=== PATIENT | male | born 1940 | race Caucasian/White ===

== ENCOUNTER 2020-08-18 19:48 | Inpatient (IN) | payer MEDICARE, BC ==
[~2020-08-18] VITALS: Ht 177.8 cm; Wt 73.5 kg
[~2020-08-18 19:48] MED LIST: ACETAMINOPHEN-1 EAC1 ORAL; ACETAMINOPHEN325 M1 ORAL; ALLOPURINOL100 M1 ORAL; AMLODIPINE BESYL5 MG ORAL; AURYXIA210 MG PO; BRIMONIDINE TART5 ML BOTH EYES; CAL-GEST200 MG PO; CALAMINE LOTIO177 ML TP; CLOPIDOGREL75 MG ORAL; COMBIGAN EYE DRO5 ML OP; COMPAZINE10 MG ORAL; COREG25 MG ORAL; CULTURELLE1 EAC1 PO; DOCUSATE SODIU100 M2 ORAL; DORZOLAMIDE 2%10 ML OP; ENTRESTO 97 MG1 EACH PO; EPOGEN20000 UNI1 SUBQ; HYDRALAZINE HCL25 M1 ORAL; HYDRALAZINE HCL25 M2 PO; HYDROXYZINE HCL25 M1 PO; IPRATROPIU0.2 MG/1 M HHN; IPRATROPIUM BRO15 ML NS; JANUVIA25 MG ORAL; JANUVIA50 MG ORAL; LEVETIRACETAM500 M1 ORAL; LEVETIRACETAM500 MG ORAL; LEVOCETIRIZINE D5 MG ORAL; LIPITOR80 MG ORAL; LORATADINE10 M1 PO; LORATADINE10 M2 PO; MELATONIN3 MG ORAL; MIRALAX17 G2 ORAL; MONTELUKAST SOD10 MG ORAL; MONTELUKAST SODI4 M1 ORAL; MYSOLINE50 M1 PO; NORCO 5-325 TA1 EAC1 ORAL; NORVASC5 MG ORAL; ONDANSETRON ODT8 MG ORAL; PANTOPRAZOLE SO20 MG ORAL; POLYETHYLENE GL17 GM ORAL; PRIMIDONE1 GM MC; RENA-VITE TABL0.8 M1 PO; RENVELA0.8 GM ORAL; RENVELA800 MG ORAL; TRAZODONE HCL100 MG ORAL; TRAZODONE HCL300 MG ORAL; TRAZODONE HCL50 MG ORAL; VOLTAREN100 G1 TP; ZOFRAN4 M1 ORAL; ZOFRAN4 M3 ORAL
[2020-08-18 20:00] VITALS: BP 176/84
[2020-08-18 20:43] LABS: CALCIUM 8.4 MG/DL (8.5-10.1); CREATININE 6.4 MG/DL (0.55-1.30); POTASSIUM 5.5 MMOL/L (3.5-5.1)
[2020-08-18 20:44] LABS: INR 1.1 (0.9-1.1)
[2020-08-18 20:45] LABS: BASOPHILS % (AUTO) 1.5 % (0.0-2.0); EOSINOPHILS % (AUTO) 5.2 % (0.0-3.0); HEMATOCRIT 27.1 % (42.0-52.0); HEMOGLOBIN 8.5 G/DL (14.2-18.0); LYMPHOCYTES % (AUTO) 36.9 % (20.0-45.0); MEAN CORPUSCULAR VOLUME 95 FL (80-99); MONOCYTES % (AUTO) 14.7 % (1.0-10.0); NEUTROPHILS % (AUTO) 41.7 % (45.0-75.0); PLATELET COUNT 167 K/UL (150-450); RED BLOOD COUNT 2.85 M/UL (4.70-6.10); RED CELL DISTRIBUTION WIDTH 15.5 % (11.6-14.8); WHITE BLOOD COUNT 5.7 K/UL (4.8-10.8)
[2020-08-18 20:48] LABS: ALBUMIN 1.8 G/DL (3.4-5.0); ALBUMIN/GLOBULIN RATIO 0.4 (1.0-2.7); BILIRUBIN,TOTAL 0.3 MG/DL (0.2-1.0)
[2020-08-18] MEDS ORDERED: Sodium Polystyrene Sulfonate 15gm Powder ORAL ONE (21:00)
[2020-08-18] MEDS ORDERED: Acetaminophen 650 MG SUPP RECTAL PRN (21:00)
--- NOTE | 2020-08-18 21:04 | Emergency Room Report ---
History of Present Illness General Chief Complaint: Abnormal Labs Source: Patient Present Illness HPI Patient is a 79-year-old male sent in from facility after increased generalized weakness. Prior history of anemia and renal disease. He normally gets intermittently dialysis. Has a left upper extremity dialysis access. States he only goes to dialysis a few times a month. Denies any recent bleeding. Has been noted to have a low hemoglobin at his facility. Prior history of chronic debilitation and lower extremity weakness. 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 COVID-19 Screening: Negative COVID-19 COVID-19 Testing Source: 08/05/2020 Patient History Past Medical History: see triage record Reviewed Nursing Documentation: PMH: Agreed; PSxH: Agreed Nursing Documentation-PMH Past Medical History: No History, Except For Hx Cardiac Problems: Yes - PLEURODYNIA, ANEMIA, ATHEROSCLEROTIC HEART DISEASE Hx Hypertension: Yes - HYPERLIPIDEMIA Hx Diabetes: Yes - ESRD, DIALYSIS, GLAUCOMA Hx Cancer: No Hx Gastrointestinal Problems: Yes - GOUT, GERD, DYSPHAGIA Hx Dialysis: Yes - av shunt on Lt arm History Of Psychiatric Problem: Yes - DEPRESSION Hx Neurological Problems: Yes Hx Cerebrovascular Accident: Yes Review of Systems All Other Systems: negative except mentioned in HPI Physical Exam Vital Signs Date Time Temp Pulse Resp B/P (MAP) Pulse Ox O2 Delivery O2 Flow Rate FiO2 08/18/20 19:40 97.3 69 18 176/84 (114) 95 Room Air Sp02 EP Interpretation: reviewed, normal General Appearance: normal inspection, alert, GCS 15, Chronically Ill Head: atraumatic ENT: normal ENT inspection, hearing grossly normal, normal voice Neck: normal inspection, full range of motion, supple, no bony tend Respiratory: normal inspection, lungs clear, normal breath sounds, no respiratory distress, no retraction, no wheezing Cardiovascular #1: regular rate, rhythm, no edema Gastrointestinal: normal inspection, normal bowel sounds, non tender, soft, no guarding, no hernia Genitourinary: no CVA tenderness Musculoskeletal: normal inspection Neurologic: alert, children's attendant III-XII nml as tested, oriented x3, motor weakness, responsive, speech normal, normal inspection, other - Bilateral lower extremity weakness Psychiatric: normal inspection, judgement/insight normal, mood/affect normal Skin: other - Decubitus ulcers Medical Decision Making Diagnostic Impression: Primary Impression: Chronic renal failure Additional Impressions: Weakness Hyperkalemia Anemia Infiltrate of lung present on chest x-ray ER Course Patient presented for generalized weakness and anemia. Differential diagnosis include was not limited to GI bleed, anemia chronic disease, renal failure, hyperkalemia among others. Because of complexity of patient's case laboratory tests and imaging studies were ordered. Patient was noted to have some prior hi story of chronic renal disease. Laboratory testing showed minimally elevated troponin. Patient was noted to have hyperkalemia on laboratory testing with K greater than 5. EKG showed normal sinus rhythm with a rate of 67 with QTC prolongation 488. Patient was consented for blood. Laboratory testing showed adequate hemoglobin. Chest x-ray read by radiology showed right mid and basilar airspace opacities which may represent pneumonia in the appropriate clinical setting. Antibiotics and blood cultures were ordered after chest x-ray showed right midlung basilar opacities possible pneumonia Mediastinal surgical clips. given Kayexalate. Dr. Salvatore Borrero was contacted for inpatient management. Labs Test 08/18/20 20:00 White Blood Count 5.7 K/UL (4.8-10.8) Red Blood Count 2.85 M/UL (4.70-6.10) Hemoglobin 8.5 G/DL (14.2-18.0) Hematocrit 27.1 % (42.0-52.0) Mean Corpuscular Volume 95 FL (80-99) Mean Corpuscular Hemoglobin 29.8 PG (27.0-31.0) Mean Corpuscular Hemoglobin Concent 31.2 G/DL (32.0-36.0) Red Cell Distribution Width 15.5 % (11.6-14.8) Platelet Count 167 K/UL (150-450) Mean Platelet Volume 6.5 FL (6.5-10.1) Neutrophils (%) (Auto) 41.7 % (45.0-75.0) Lymphocytes (%) (Auto) 36.9 % (20.0-45.0) Monocytes (%) (Auto) 14.7 % (1.0-10.0) Eosinophils (%) (Auto) 5.2 % (0.0-3.0) Basophils (%) (Auto) 1.5 % (0.0-2.0) Prothrombin Time 12.5 SEC (9.30-11.50) Prothromb Time International Ratio 1.1 (0.9-1.1) Activated Partial Thromboplast Time 35 SEC (23-33) Sodium Level 134 MMOL/L (136-145) Potassium Level 5.5 MMOL/L (3.5-5.1) Chloride Level 100 MMOL/L (98-107) Carbon Dioxide Level 28 MMOL/L (21-32) Anion Gap 6 mmol/L (5-15) Blood Urea Nitrogen 48 mg/dL (7-18) Creatinine 6.4 MG/DL (0.55-1.30) Estimat Glomerular Filtration Rate 8.5 mL/min (>60) Glucose Level 121 MG/DL (74-106) Calcium Level 8.4 MG/DL (8.5-10.1) Total Bilirubin 0.3 MG/DL (0.2-1.0) Aspartate Amino Transf (AST/SGOT) 44 U/L (15-37) Alanine Aminotransferase (ALT/SGPT) 19 U/L (12-78) Alkaline Phosphatase 105 U/L (46-116) Troponin I 0.181 ng/mL (0.000-0.056) Total Protein 6.5 G/DL (6.4-8.2) Albumin 1.8 G/DL (3.4-5.0) Globulin 4.7 g/dL Albumin/Globulin Ratio 0.4 (1.0-2.7) EKG Diagnostic Results Rate: normal Rhythm: NSR ST Segments: no acute changes Last Vital Signs Date Time Temp Pulse Resp B/P (MAP) Pulse Ox O2 Delivery O2 Flow Rate FiO2 08/18/20 20:00 97.3 69 18 176/84 95 Room Air Status: improved Disposition: ADMITTED INPATIENT Condition: Stable Referrals: Salvatore Borrero DO (PCP) Kevin Currie MD Aug 18, 2020 21:04
--- NOTE | 2020-08-18 21:15 | Diagnostic Imaging Report ---
EXAM: XR Chest, 1 View CLINICAL HISTORY: ABN LABS TECHNIQUE: Frontal view of the chest. COMPARISON: CT chest dated 06/04/2020. FINDINGS: Lungs: Prominent interstitial lung markings are demonstrated bilaterally. Right mid and basilar airspace opacities are demonstrated. A few scattered pulmonary nodules, better visualized on prior CT. Pleural space: Mild obscuration of the right costophrenic angle. No pneumothorax. Heart: Unremarkable. No cardiomegaly. Mediastinum: Mediastinal surgical clips. Bones/joints: Prior median sternotomy. No obvious acute osseous abnormality. Vasculature: Atherosclerotic vascular disease within the aortic arch. IMPRESSION: 1. Right mid and basilar airspace opacities. May represent pneumonia in the appropriate clinical setting. 2. Obscuration of the right costophrenic angle suggesting small pleural effusion and/or atelectasis.
[2020-08-18] MEDS ORDERED: cefTRIAXone 1 GM in NS 55 ML IVPB ONE (21:30)
[2020-08-18] MEDS ORDERED: Tylenol #3 tab (300mg/30mg) ORAL ONE (21:45)
[2020-08-18 22:30] VITALS: BP 162/68
[2020-08-19] VITALS: BP 179/75
[2020-08-19 04:00] VITALS: BP 152/85
[2020-08-19 08:00] VITALS: BP 164/71
[2020-08-19] MEDS ORDERED: Heparin 5000 units/ml inj SUBQ SCH (09:00)
[2020-08-19] MEDS: Carvedilol 25mg Tab ORAL SCH ×2 (09:15→21:00)
[2020-08-19] MEDS: Docusate 100mg cap ORAL SCH (09:16)
[2020-08-19 10:36] LABS: CREATININE 6.8 MG/DL (0.55-1.30)
--- NOTE | 2020-08-19 10:40 | General Progress Note ---
Subjective Date patient seen: Aug 19, 2020 Time patient seen: 10:30 Constitutional: Reports: weakness HEENT: Reports: no symptoms Cardiovascular: Reports: no symptoms Respiratory: Reports: no symptoms Gastrointestinal/Abdominal: Reports: no symptoms Genitourinary: Reports: no symptoms Neurologic/Psychiatric: Reports: weakness Endocrine: Reports: no symptoms Hematologic/Lymphatic: Reports: anemia Allergies: Coded Allergies: No Known Allergies (Unverified , 06/09/15) Subjective Patient was seen and examined. He was admitted for hyperkalemia and anemia. he states he had upper and lower endoscopy done at [facility] recently. He has low grade temp. No sob or chest pain. Objective Last 24 Hour Vital Signs Date Time Temp Pulse Resp B/P (MAP) Pulse Ox O2 Delivery O2 Flow Rate FiO2 08/19/20 09:15 65 164/71 08/19/20 08:00 97.5 65 20 164/71 (102) 95 08/19/20 04:00 98.9 72 20 152/85 (107) 96 08/19/20 04:00 68 08/19/20 00:00 99.6 63 20 179/75 (109) 96 08/19/20 00:00 68 08/18/20 23:46 Room Air 08/18/20 23:46 69 08/18/20 22:45 97.3 71 14 162/68 96 Room Air 08/18/20 22:30 97.3 71 14 162/68 96 Room Air 08/18/20 22:25 97.3 08/18/20 20:00 97.3 69 18 176/84 95 Room Air 08/18/20 19:40 97.3 69 18 176/84 (114) 95 Room Air Laboratory Tests 08/18/20 20:00: White Blood Count 5.7, Red Blood Count 2.85L, Hemoglobin 8.5L, Hematocrit 27.1L, Mean Corpuscular Volume 95, Mean Corpuscular Hemoglobin 29.8, Mean Corpuscular Hemoglobin Concent 31.2L, Red Cell Distribution Width 15.5H, Platelet Count 167, Mean Platelet Volume 6.5, Neutrophils (%) (Auto) 41.7L, Lymphocytes (%) (Auto) 36.9, Monocytes (%) (Auto) 14.7H, Eosinophils (%) (Auto) 5.2H, Basophils (%) (Auto) 1.5, Prothrombin Time 12.5H, Prothromb Time International Ratio 1.1, Activated Partial Thromboplast Time 35H, Sodium Level 134L, Potassium Level 5.5H , Chloride Level 100, Carbon Dioxide Level 28, Anion Gap 6, Blood Urea Nitrogen 48H, Creatinine 6.4H, Estimat Glomerular Filtration Rate 8.5, Glucose Level 121H , Calcium Level 8.4L, Total Bilirubin 0.3, Aspartate Amino Transf (AST/SGOT) 44H , Alanine Aminotransferase (ALT/SGPT) 19, Alkaline Phosphatase 105, Troponin I 0.181H, Total Protein 6.5, Albumin 1.8L, Globulin 4.7, Albumin/Globulin Ratio 0.4L 08/18/20 20:15: Lactic Acid Level 1.00 08/19/20 09:25: White Blood Count [Pending], Red Blood Count [Pending], Hemoglobin [Pending], Hematocrit [Pending], Mean Corpuscular Volume [Pending], Mean Corpuscular H emoglobin [Pending], Mean Corpuscular Hemoglobin Concent [Pending], Red Cell Distribution Width [Pending], Platelet Count [Pending], Mean Platelet Volume [Pending], Neutrophils (%) (Auto) [Pending], Lymphocytes (%) (Auto) [Pending], Monocytes (%) (Auto) [Pending], Eosinophils (%) (Auto) [Pending], Basophils (%) (Auto) [Pending], Sodium Level [Pending], Potassium Level [Pending], Chloride Level [Pending], Carbon Dioxide Level [Pending], Blood Urea Nitrogen [Pending], Creatinine [Pending], Estimat Glomerular Filtration Rate [Pending], Glucose Level [Pending], Calcium Level [Pending], Troponin I [Pending] Height (Feet): 5 Height (Inches): 10.00 Weight (Pounds): 166 General Appearance: no apparent distress, alert EENT: normal ENT inspection Neck: non-tender, supple Cardiovascular: normal rate, regular rhythm Respiratory/Chest: lungs clear Abdomen: non tender, soft Extremities: non-tender Edema: trace edema Neurologic: alert, responsive Skin: warm/dry Assessment/Plan Status: stable Assessment/Plan: 1. Hyperkalemia - received Kayexalate in ER. 2. ESRD on HD - Renal was consulted for Dialysis. 3. Anemia - most likely 2nd to Anemia of chronic disease due to ESRD - he had colonoscopy at [facility] per patient. 4. H/o Lower GI bleeding s/p Colonoscopy per patient at [facility]. 5. HTN - cont coreg 25 mg bid and start norvasc 2.5 mg daily. 6. 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 7. h/o lower GI bleed at [facility] per patient - will have GI see the patient. 8. Elevated Troponin - most likely 2nd to ERSD. Cardiology eval. Isela Jordan MD Aug 19, 2020 10:40
[2020-08-19 10:59] LABS: HEMATOCRIT 25.6 % (42.0-52.0); HEMOGLOBIN 7.8 G/DL (14.2-18.0); MEAN CORPUSCULAR VOLUME 94 FL (80-99); PLATELET COUNT 171 K/UL (150-450); RED BLOOD COUNT 2.72 M/UL (4.70-6.10); WHITE BLOOD COUNT 5.1 K/UL (4.8-10.8)
--- NOTE | 2020-08-19 11:12 | Consultation ---
History of Present Illness General Date patient seen: Aug 19, 2020 Time patient seen: 08:30 Chief Complaint: infiltarte on CXR ; possible PNA Referring physician: Dr Borrero Reason for Consultation: poss PNA Present Illness HPI 79 years old male, resident of assisted living, with PMH of CVA, ESRD, on hemodialysis, HTN, DM, anemia, GERD, history of CVA, atherosclerotic heart disease, hyperlipidemia, seizure disorder, recent GI bleeding, s/p colonoscopy at [facility], was sent for increased generalized weakness. Facility noted low hemoglobin. Upon evaluation blood pressure was elevated 176/84 . Laboratory work-up revealed no leukocytosis ,hemoglobin 8.5 ,hematocrit 27.1, platelet count 167. Sodium 134 , potassium 5.5. BUN 40, creatinine 6.4 c/w known hx of ESRD. Glucose 121. CXR demonstrated right mid and basilar airspace opacities. Obscuration of the right costophrenic angle suggesting small pleural effusion and/or atelectasis. In emergency department patient received Kayexalate. Septic work-up initiated. Patient pancultured, started on empiric antibiotic and admitted to telemetry floor for further management. Pulmonary consult was requested to assist in management of this patient for possible PNA Allergies: Coded Allergies: No Known Allergies (Unverified , 06/09/15) Medication History Scheduled Atorvastatin (Lipitor), 80 MG ORAL BEDTIME, (Reported) Carvedilol (Coreg), 25 MG ORAL TWICE A DAY, (Reported) Clopidogrel* (Clopidogrel*), 75 MG ORAL DAILY, (Reported) Docusate Sodium (Docusate Sodium), 100 MG ORAL DAILY, (Reported) Levetiracetam* (Levetiracetam*), 500 MG ORAL TWICE A DAY, (Reported) Loratadine (Claritin*), 10 MG PO DAILY, (Reported) Montelukast Sodium* (Montelukast Sodium*), 10 MG ORAL DAILY, (Reported) Pantoprazole (Pantoprazole), 40 MG ORAL TWICE A DAY, (Reported) Primidone (Mysoline), 50 MG PO BEDTIME, (Reported) Sitagliptin* (Januvia*), 25 MG ORAL DAILY, (Reported) Scheduled PRN Acetaminophen* (Acetaminophen 325MG Tablet*), 325 MG ORAL Q4H PRN for For Pain, (Reported) Ondansetron* (Zofran*), 4 MG ORAL Q6H PRN for Nausea & Vomiting, (Reported) Discontinued Medications Amlodipine Besylate (Norvasc), 5 MG ORAL Q12HR Discontinued Reason: MD discontinued med Folic Acid/Vitamin B Comp W-C (Jen-Sandeep Tablet), 1 TAB PO DAILY, (Reported) Discontinued Reason: MD discontinued med Hydralazine HCl (Hydralazine HCl), 25 MG PO Q8HR, (Reported) Discontinued Reason: MD discontinued med Hydrocodone Bit/Acetaminophen 5-325* ([place] 5-325 Tablet*), 1 TAB ORAL Q4H PRN for For Pain, (Reported) Discontinued Reason: MD discontinued med Sevelamer Carbonate* (Renvela*), 800 MG ORAL THREE TIMES A DAY, (Reported) Discontinued Reason: MD discontinued med Trazodone Hcl* (Desyrel*), 150 MG ORAL BEDTIME, (Reported) Discontinued Reason: MD discontinued med Patient History History Provided By: Patient Healthcare decision maker Resuscitation status Full code Advanced Directive on File Past Medical/Surgical History Past Medical/Surgical History: (1) CVA (cerebral vascular accident) (2) ESRD (end stage renal disease) (3) Anemia Review of Systems Constitutional: Reports: weakness Eye: Reports: no symptoms ENT: Reports: no symptoms Respiratory: Reports: shortness of breath Gastrointestinal: Reports: other - recent GI bleeding, s/p colonoscopy at [facility] Genitourinary: Reports: other - ESRD, on HD Musculoskeletal: Reports: muscle stiffness Skin: Reports: no symptoms Psychiatric: Reports: depressed feelings Neurological: Reports: seizure, other - hx of CVA Endocrine: Reports: other - DB Hematologic/Lymphatic: Reports: anemia Physical Exam General Appearance: no apparent distress, other - bedridden, weak, awake and alert male in NAD Lines, tubes and drains: peripheral HEENT: normocephalic, atraumatic, anicteric, mucous membranes moist Neck: non-tender, supple Respiratory/Chest: lungs clear - with decreased BS , no accessory muscle use Cardiovascular/Chest: normal rate, regular rhythm - SR on tele Abdomen: normal bowel sounds, non tender, soft Extremities: normal capillary refill, no edema, other - LUE AV shunt + bruit/thrill Skin Exam: warm/dry Neurologic: abnormal gait, alert, responsive Musculoskeletal: atrophy - BLE Last 24 Hour Vital Signs Date Time Temp Pulse Resp B/P (MAP) Pulse Ox O2 Delivery O2 Flow Rate FiO2 08/19/20 09:15 65 164/71 08/19/20 08:00 97.5 65 20 164/71 (102) 95 08/19/20 04:00 98.9 72 20 152/85 (107) 96 08/19/20 04:00 68 08/19/20 00:00 99.6 63 20 179/75 (109) 96 08/19/20 00:00 68 08/18/20 23:46 Room Air 08/18/20 23:46 69 08/18/20 22:45 97.3 71 14 162/68 96 Room Air 08/18/20 22:30 97.3 71 14 162/68 96 Room Air 08/18/20 22:25 97.3 08/18/20 20:00 97.3 69 18 176/84 95 Room Air 08/18/20 19:40 97.3 69 18 176/84 (114) 95 Room Air Laboratory Tests Test 08/18/20 20:00 08/18/20 20:15 08/19/20 09:25 White Blood Count 5.7 K/UL (4.8-10.8) Pending Red Blood Count 2.85 M/UL (4.70-6.10) L Pending Hemoglobin 8.5 G/DL (14.2-18.0) L Pending Hematocrit 27.1 % (42.0-52.0) L Pending Mean Corpuscular Volume 95 FL (80-99) Pending Mean Corpuscular Hemoglobin 29.8 PG (27.0-31.0) Pending Mean Corpuscular Hemoglobin Concent 31.2 G/DL (32.0-36.0) L Pending Red Cell Distribution Width 15.5 % (11.6-14.8) H Pending Platelet Count 167 K/UL (150-450) Pending Mean Platelet Volume 6.5 FL (6.5-10.1) Pending Neutrophils (%) (Auto) 41.7 % (45.0-75.0) L Pending Lymphocytes (%) (Auto) 36.9 % (20.0-45.0) Pending Monocytes (%) (Auto) 14.7 % (1.0-10.0) H Pending Eosinophils (%) (Auto) 5.2 % (0.0-3.0) H Pending Basophils (%) (Auto) 1.5 % (0.0-2.0) Pending Prothrombin Time 12.5 SEC (9.30-11.50) H Prothromb Time International Ratio 1.1 (0.9-1.1) Activated Partial Thromboplast Time 35 SEC (23-33) H Sodium Level 134 MMOL/L (136-145) L 135 MMOL/L (136-145) L Potassium Level 5.5 MMOL/L (3.5-5.1) H 5.0 MMOL/L (3.5-5.1) Chloride Level 100 MMOL/L (98-107) 101 MMOL/L (98-107) Carbon Dioxide Level 28 MMOL/L (21-32) 27 MMOL/L (21-32) Anion Gap 6 mmol/L (5-15) 7 mmol/L (5-15) Blood Urea Nitrogen 48 mg/dL (7-18) H 55 mg/dL (7-18) H Creatinine 6.4 MG/DL (0.55-1.30) H 6.8 MG/DL (0.55-1.30) H Estimat Glomerular Filtration Rate 8.5 mL/min (>60) 7.9 mL/min (>60) Glucose Level 121 MG/DL (74-106) H 116 MG/DL (74-106) H Calcium Level 8.4 MG/DL (8.5-10.1) L 8.0 MG/DL (8.5-10.1) L Total Bilirubin 0.3 MG/DL (0.2-1.0) Aspartate Amino Transf (AST/SGOT) 44 U/L (15-37) H Alanine Aminotransferase (ALT/SGPT) 19 U/L (12-78) Alkaline Phosphatase 105 U/L (46-116) Troponin I 0.181 ng/mL (0.000-0.056) 0.164 ng/mL (0.000-0.056) Total Protein 6.5 G/DL (6.4-8.2) Albumin 1.8 G/DL (3.4-5.0) L Globulin 4.7 g/dL Albumin/Globulin Ratio 0.4 (1.0-2.7) L Lactic Acid Level 1.00 mmol/L (0.4-2.0) Microbiology Date/Time Source Procedure Growth Status 08/18/20 20:00 Nasopharynx SARS-CoV-2 RdRp Gene Assay - Final Complete Height (Feet): 5 Height (Inches): 10.00 Weight (Pounds): 166 Medications Current Medications Medications (Trade) Dose Ordered Sig/Harriet Route PRN Reason Start Time Stop Time Status Last Admin Dose Admin Acetaminophen (Tylenol) 650 mg PRN PRN RECTAL TEMP>100.5 08/18/20 21:00 Acetaminophen (Tylenol) 650 mg Q6H PRN ORAL For Headache 08/19/20 01:30 09/18/20 01:29 08/19/20 03:22 Atorvastatin Calcium (Lipitor) 80 mg BEDTIME ORAL 08/19/20 21:00 11/17/20 20:59 Carvedilol (Coreg) 25 mg EVERY 12 HOURS ORAL 08/19/20 09:00 09/18/20 08:59 08/19/20 09:15 Clopidogrel Bisulfate (Plavix) 75 mg DAILY ORAL 08/19/20 09:00 09/18/20 08:59 08/19/20 09:15 Docusate Sodium (Colace) 100 mg DAILY ORAL 08/19/20 09:00 09/18/20 08:59 08/19/20 09:16 Epoetin Bill (Epoetin Bill(ESRD on dialysis)) 10,000 unit FRI-FRI-FRI SUBQ 08/21/20 21:00 11/19/20 20:59 Levetiracetam (Keppra) 500 mg Q12HR ORAL 08/19/20 09:00 10/03/20 08:59 08/19/20 09:15 Loratadine (Claritin 10mg) 10 mg DAILY ORAL 08/19/20 09:00 09/18/20 08:59 08/19/20 09:15 Montelukast Sodium (Singulair) 10 mg QPM ORAL 08/19/20 16:30 11/17/20 16:29 Ondansetron HCl (Zofran) 4 mg Q6H PRN IVP Nausea & Vomiting 08/19/20 10:00 09/18/20 09:59 Pantoprazole (Protonix) 40 mg EVERY 12 HOURS ORAL 08/19/20 09:00 09/18/20 08:59 08/19/20 09:15 Primidone (Mysoline) 50 mg BEDTIME ORAL 08/19/20 21:00 09/18/20 20:59 Sitagliptin Phosphate (Januvia) 25 mg ACBREAKFAST ORAL 08/20/20 06:30 09/19/20 06:29 Assessment/Plan Assessment/Plan: ASSESSMENT Generalized weakness Possible pneumonia Anemia Elevated troponin Hyperkalemia Hypertension with initial hypertensive urgency ESRD on hemodialysis Diabetes mellitus Recent low GI bleeding , status post colonoscopy at [facility] tele empiric abx O2 prn titrate to keep sat above 92% pulm toilet fup with CXR SCX if able COVID 19 NGT DVT prophylaxis serial troponin cardio eval- per primary no c/o chest pain or SOB tele stable continue Plavix, statin HD as per nephro with close monitoring of volumes BS management with Januvia monitor HH with goal to keep Hgb > 7 continue EPO GI prophylaxis seizure precautions, continue Keppra case discussed and evaluated by supervising physician Ibis Berg NP Aug 19, 2020 11:12
[2020-08-19] MEDS ORDERED: Albuterol/Ipratropium 3ml neb HHN PRN (11:15)
[2020-08-19 11:42] LABS: % IRON SATURATION 36 % (15-50); IRON 46 ug/dL (50-175); PHOSPHORUS 4.1 MG/DL (2.5-4.9); TOTAL IRON BINDING CAPACITY 127 ug/dL (250-450)
[2020-08-19 12:00] VITALS: BP 163/64
[2020-08-19] MEDS ORDERED: Varibar Nectar 240ml MC PRN (12:45)
[2020-08-19] MEDS ORDERED: Varibar Thin Liquid powder 148gm MC PRN (12:45)
[2020-08-19] MEDS ORDERED: Varibar Honey 250ml MC PRN (12:45)
[2020-08-19] MEDS ORDERED: Varibar Pudding 230ml MC PRN (12:45)
--- NOTE | 2020-08-19 15:36 | General Progress Note ---
Subjective Allergies: Coded Allergies: No Known Allergies (Unverified , 06/09/15) Objective Last 24 Hour Vital Signs Date Time Temp Pulse Resp B/P (MAP) Pulse Ox O2 Delivery O2 Flow Rate FiO2 08/19/20 12:28 97.5 08/19/20 12:00 97.7 57 20 163/64 (97) 98 08/19/20 12:00 54 08/19/20 11:15 65 164/71 08/19/20 09:15 65 164/71 08/19/20 09:00 Room Air 08/19/20 08:00 97.5 65 20 164/71 (102) 95 08/19/20 08:00 62 08/19/20 04:00 98.9 72 20 152/85 (107) 96 08/19/20 04:00 68 08/19/20 00:00 99.6 63 20 179/75 (109) 96 08/19/20 00:00 68 08/18/20 23:46 Room Air 08/18/20 23:46 69 08/18/20 22:45 97.3 71 14 162/68 96 Room Air 08/18/20 22:30 97.3 71 14 162/68 96 Room Air 08/18/20 22:25 97.3 08/18/20 20:00 97.3 69 18 176/84 95 Room Air 08/18/20 19:40 97.3 69 18 176/84 (114) 95 Room Air Laboratory Tests 08/18/20 20:00: White Blood Count 5.7, Red Blood Count 2.85L, Hemoglobin 8.5L, Hematocrit 27.1L, Mean Corpuscular Volume 95, Mean Corpuscular Hemoglobin 29.8, Mean Corpuscular Hemoglobin Concent 31.2L, Red Cell Distribution Width 15.5H, Platelet Count 167, Mean Platelet Volume 6.5, Neutrophils (%) (Auto) 41.7L, Lymphocytes (%) (Auto) 36.9, Monocytes (%) (Auto) 14.7H, Eosinophils (%) (Auto) 5.2H, Basophils (%) (Auto) 1.5, Prothrombin Time 12.5H, Prothromb Time International Ratio 1.1, Activated Partial Thromboplast Time 35H, Sodium Level 134L, Potassium Level 5.5H , Chloride Level 100, Carbon Dioxide Level 28, Anion Gap 6, Blood Urea Nitrogen 48H, Creatinine 6.4H, Estimat Glomerular Filtration Rate 8.5, Glucose Level 121H , Calcium Level 8.4L, Total Bilirubin 0.3, Aspartate Amino Transf (AST/SGOT) 44H , Alanine Aminotransferase (ALT/SGPT) 19, Alkaline Phosphatase 105, Troponin I 0.181H, Total Protein 6.5, Albumin 1.8L, Globulin 4.7, Albumin/Globulin Ratio 0.4L 08/18/20 20:15: Lactic Acid Level 1.00 08/19/20 09:25: White Blood Count 5.1, Red Blood Count 2.72L, Hemoglobin 7.8L, Hematocrit 25.6L, Mean Corpuscular Volume 94, Mean Corpuscular Hemoglobin 28.6, Mean Corpuscular Hemoglobin Concent 30.4L, Red Cell Distribution Width 15.0H, Platelet Count 171, Mean Platelet Volume 6.4L, Neutrophils (%) (Auto) , Lymphocytes (%) (Auto) , Monocytes (%) (Auto) , Eosinophils (%) (Auto) , Basophils (%) (Auto) , Sodium Level 135L, Potassium Level 5.0, Chloride Level 101, Carbon Dioxide Level 27, Anion Gap 7, Blood Urea Nitrogen 55H, Creatinine 6.8H, Estimat Glomerular Filtration Rate 7.9, Glucose Level 116H, Calcium Level 8.0L, Troponin I 0.164H, Differential Total Cells Counted 100, Neutrophils % (Manual) 46, Lymphocytes % (Manual) 37, Monocytes % (Manual) 12H, Eosinophils % (Manual) 4H, Basophils % (Manual) 1, Band Neutrophils 0, Platelet Estimate Adequate, Platelet Morphology Normal, Polychromasia 1+, Hypochromasia 1+, Anisocytosis 1+, Calcium (Send out) [Pending], Phosphorus Level 4.1, Iron Level 46L, Total Iron Binding Capacity 127L, Percent Iron Saturation 36, Unsaturated Iron Binding 81L, Parathyroid Hormone (Intact) [Pending] Height (Feet): 5 Height (Inches): 10.00 Weight (Pounds): 166 Assessment/Plan Status: stable Assessment/Plan: Assessment Chronic Nausea, W/u to date: 12/04/16 - EGD - DU x 4 HH x 3 cm path (-) for HP 06/04/19 - abd u/s - small gallbladder sludge 06/05/19 - HIDA Scan-- normal, no CCK given 10/09/19 - abd/pelvis CT - possible PSBO , ventral hernia and tics 10/15/19 - upper GI with SBFT - small HH, non-obstructing Schatzki's ring, mildly distended small bowel loops 12/02/19 - gastric emptying study normal 05/22/20 - HIDA SCAN with CCK mildly abnormal (EF 32%, normal >35%) 07/24/20 - Colonoscopy --> diminutive polyps and diverticulosis ESRD/HD DM h/o anemia h/o syncope CAD/MN PTCA/Stent 04/2015 HTN Hypercholesterolemia AAA GERD Gout h/o PUD/DU h/o a fib Recommendations - po as tolerated - monitor CBC - Surgical consult for possible lap ela (? source of nausea) Thank you MD Kellie Ewing Payman MD Aug 19, 2020 15:36
[2020-08-19 16:00] VITALS: BP 168/74
--- NOTE | 2020-08-19 16:00 | History and Physical Report ---
DATE OF ADMISSION: 08/18/2020 DATE AND TIME SEEN: 08/19/2020 at 9 a.m. CONSULTANTS: 1. Robbie Lee M.D. 2. Derek Shah M.D. 3. Dr. New. 4. Poli Solano M.D. 5. Daniel Irving M.D. CHIEF COMPLAINT: Anemia and shortness of breath. BRIEF HISTORY: This is a 79-year-old male from . Yesterday he was found to have hemoglobin drop down to 7.2, was slightly short of breath and weak, and sent to [facility], diagnosed with above. The patient's repeat hemoglobin was 8.5, but still slightly short of breath, therefore, was admitted to [facility]. Currently calm in bed, slightly short of breath, slightly weak. No complaint. REVIEW OF SYSTEMS: No chest pain. Slightly short of breath. No nausea, vomiting, or diarrhea. PAST MEDICAL HISTORY: Anemia, ESRD, hypertension, depression, GERD, and asthma. Also had CVA. PAST SURGICAL HISTORY: Heart surgery. ALLERGIES: Denies. MEDICATIONS: Januvia, Mysoline, Lipitor, Singulair, Zofran, heparin, pantoprazole, loratadine, , carvedilol, Tylenol, and ceftriaxone. SOCIAL HISTORY: Positive smoking. No alcohol. No intravenous drug abuse. FAMILY HISTORY: Noncontributory. PHYSICAL EXAMINATION: GENERAL: Calm in bed, oriented x1, in no acute distress. VITAL SIGNS: Temperature 97, pulse 65, respirations 20, blood pressure 164/71. CARDIOVASCULAR: No murmur. LUNGS: Poor air exchange. ABDOMEN: Bowel sounds distant. EXTREMITIES: No cyanosis or edema. NEUROLOGIC: The patient moves all extremities, slightly weak. LABORATORY AND DIAGNOSTIC DATA: Labs at this time show H and H 8.5 and 27, otherwise CBC is normal. BMP shows sodium of 134, potassium 5.5, BUN and creatinine 48 and 6.4. Glucose 121. Troponin 0.181. Albumin 1.8. AST 44. INR is 1.1. PTT is 35. ASSESSMENT: 1. Anemia. 2. Shortness of breath. 3. Elevated troponin. 4. ESRD. 5. Hyperkalemia. 6. Hypertension. 7. Depression. 8. GERD. 9. Malnutrition. 10. Asthma. 11. CVA. PLAN: 1. O2 and pulmonary treatment as needed. 2. Antibiotics per Infectious Disease. 3. Blood pressure and pain control. 4. Dietary followup. 5. Dialysis p.r.n. 6. Resume home meds. 7. CBC and BMP in the morning. Salvatore Borrero D.O. DR: JERICHO JOB#: [id number] CC:
--- NOTE | 2020-08-19 16:15 | Consultation ---
DATE OF CONSULTATION: 08/19/2020 NEPHROLOGY CONSULTATION CONSULTING PHYSICIAN: Ary Locke M.D. REFERRING PHYSICIAN: Salvatore Borrero D.O. REASON FOR CONSULTATION: End-stage renal disease, need for dialysis. HISTORY OF PRESENT ILLNESS: The patient is a 79-year-old male, known to me with recent admission at [facility] with history of end-stage renal disease, anemia of chronic kidney disease, renal osteodystrophy, hypertension, dyslipidemia, and depression, who was just recently discharged from [facility] [place]. The last dialysis was last Friday. He was sent to a [facility]. Apparently, the patient complained of back pain and some shortness of breath, was brought into [facility]. In the ER, the patient was found to have blood pressure of 176/87, pulse was 79, potassium found to be 5.3. The patient was found to be mildly overloaded, was admitted in the telemetry unit. I was called for management of renal disease and electrolyte imbalance. PAST MEDICAL HISTORY: Includin. End-stage renal disease. 2. Anemia of chronic kidney disease. 3. Renal osteodystrophy. 4. Hypertension. 5. Glaucoma. 6. Dysphagia. 7. History of gout. 8. History of depression. 9. History of AV fistula placement. 10. History of CVA. FAMILY HISTORY: Noncontributory. SOCIAL HISTORY: He lives at [facility]. There is no current history of tobacco, alcohol, or drug use. MEDICATIONS: List was reviewed. REVIEW OF SYSTEMS: GENERAL: He is complaining of generalized weakness. Denies any fever, chills, or night sweats. HEAD AND NECK: Denies any dysphagia, odynophagia, blurry vision, headache, or neck stiffness. PULMONARY: Denies any shortness of breath or cough or sputum. CARDIOVASCULAR: Denies any chest pain or palpitations. GASTROINTESTINAL: Denies any nausea, vomiting, diarrhea, hematemesis, or hematochezia. GENITOURINARY: Denies any dysuria, frequency, or hematuria. MUSCULOSKELETAL: Denies any localized weakness or numbness. PHYSICAL EXAMINATION: VITAL SIGNS: Currently, the patient has a temperature of 97, blood pressure of 164/75, pulse rate of 65. HEAD AND NECK: No JVP. No LAD. No thyromegaly. Extraocular movements intact. Pupils are reactive to light and accommodation. LUNGS: Clear to auscultation. CARDIAC: Regular rate and rhythm. S1 and S2. No murmur. No rubs ABDOMEN: Soft, nontender, and nondistended. EXTREMITIES: No edema. No clubbing. No cyanosis. LABORATORY AND DIAGNOSTIC DATA: Lab value, the patient has sodium of 134, potassium 5.5, 100 chloride, 28 bicarb, BUN of 28, creatinine of 6.4. AST and ALT within normal limits. CBC revealed WBC count of 5.7, hemoglobin of 8.5, hematocrit of 27, platelet count of 164. ASSESSMENT: 1. End-stage renal disease. 2. Anemia of chronic kidney disease. 3. Renal osteodystrophy. 4. Hypertension. PLAN: The plan for the patient is to restart antihypertensive medications. Check the calcium and phosphorus for evaluation of renal osteodystrophy. Start the patient back on Epogen for anemia of chronic kidney disease. Check the iron panel for history of low-potassium and renal diet. Schedule the patient to receive dialysis today. At the end, I would like to thank Dr. Salvatore Borrero for allowing me to participate in the care of this patient. Sofia Mari JOB#: [id number] CC:
[2020-08-19] MEDS: Montelukast 10mg tablet ORAL SCH (16:30)
--- NOTE | 2020-08-19 16:30 | History and Physical Report ---
DATE OF ADMISSION: 08/18/2020 CHIEF COMPLAINT: Anemia and weakness. HISTORY OF PRESENT ILLNESS: This is a 79-year-old male with a history of hypertension, end-stage renal disease, insomnia, hyperlipidemia, gout, essential tremor, seizure disorder, and anemia, who was brought in from a shelter for complaint of weakness and anemia. The patient states that he had lower GI bleed a few days before the admission and his hemoglobin came down and it was decided at the rehab to send the patient to hospital for evaluation. The patient has a history of colonoscopy done at [facility] according to him and that did not show any source of GI bleed, but we will have GI see the patient as an inpatient. The patient also has been having hemodialysis 2 times a week instead of 3 according to the blocker automatic at [facility] who saw the patient. The patient has been refusing to have 9-ecbjo-v-week hemodialysis according to him. At this point, we will admit the patient and do the workup for the anemia. PAST MEDICAL HISTORY: History of hypertension, end-stage renal disease, hyperlipidemia, gout, essential tremor, history of fall, history of seizure disorder, and anemia. PAST SURGICAL HISTORY: End-stage renal disease and shunt placement. SOCIAL HISTORY: The patient was previously living in an assisted living, but in the last 2 to 3 months has been living in the rehab. ALLERGIES: No known drug allergies. FAMILY HISTORY: Noncontributory. PHYSICAL EXAMINATION: VITAL SIGNS: Temperature 97.5, pulse 65, respiratory rate of 20, blood pressure 164/71, O2 sat is 95% on room air. GENERAL APPEARANCE: He is alert and oriented x3. No acute distress. HEENT: Normocephalic, normochromic. Extraocular muscles intact. Throat is clear. NECK: Supple. No lymphadenopathy. LUNGS: Clear to auscultation bilaterally. No wheezing, no rales CARDIOVASCULAR: Regular rate and rhythm. No murmur. No gallop. ABDOMEN: Soft, nontender, nondistended. Positive bowel sounds. No guarding. EXTREMITIES: Trace edema bilaterally. No cyanosis or clubbing. NEUROLOGIC: Alert and oriented x3. Responds to commands. SKIN: No rash. LABORATORY AND DIAGNOSTIC DATA: WBC 5.7, hemoglobin 8.5, hematocrit 27.1, platelet count is 167, neutrophils 41, lymphocytes 36, monos 14. Sodium 134, potassium 5.5, chloride 100, bicarb 28, BUN 48, creatinine 6.4, glucose 121. Lactic acid is 1, calcium 8.4. AST 44, ALT 19, alkaline phosphatase 105. Troponin is 0.181. Albumin 1.8. PT is 12.5, INR 1.1, PTT 35. Chest x-ray showed right mid to basilar airspace opacity, may represent pneumonia in appropriate clinical setting. Obscuration of the right costophrenic angle, suggesting small pleural effusion or atelectasis. EKG showed wide QRS with occasional PVCs, right bundle-branch block, and possible old inferior infarct. IMPRESSION AND PLAN: 1. Hyperkalemia. Treated with kayexalate in the ER and the patient will have hemodialysis as an inpatient. 2. End-stage renal disease. We will have Nephrology see the patient for hemodialysis. 3. Hypertension. We will continue Coreg and probably add Norvasc to control blood pressure. 4. History of anemia. We will have GI see the patient and we will do anemia workup. 5. History of lower GI bleed, status post colonoscopy at [facility]. We will have GI see the patient as an inpatient with Dr. Irving. 6. History of seizure disorder. We will continue home meds. 7. Elevated troponin, most likely secondary to end-stage renal disease, but we will have Cardiology evaluate the patient as well. 8. The patient will be admitted for a minimum of 2-night stay for above diagnoses. Isela Jordan M.D. DR: SHERLEY JOB#: [id number] CC: DEEPAK
--- NOTE | 2020-08-19 16:52 | Cardiac Electrophysiology PN ---
Subjective Subjective [id number] Objective Last 24 Hour Vital Signs Date Time Temp Pulse Resp B/P (MAP) Pulse Ox O2 Delivery O2 Flow Rate FiO2 08/19/20 12:28 97.5 08/19/20 12:00 97.7 57 20 163/64 (97) 98 08/19/20 12:00 54 08/19/20 11:15 65 164/71 08/19/20 09:15 65 164/71 08/19/20 09:00 Room Air 08/19/20 08:00 97.5 65 20 164/71 (102) 95 08/19/20 08:00 62 08/19/20 04:00 98.9 72 20 152/85 (107) 96 08/19/20 04:00 68 08/19/20 00:00 99.6 63 20 179/75 (109) 96 08/19/20 00:00 68 08/18/20 23:46 Room Air 08/18/20 23:46 69 08/18/20 22:45 97.3 71 14 162/68 96 Room Air 08/18/20 22:30 97.3 71 14 162/68 96 Room Air 08/18/20 22:25 97.3 08/18/20 20:00 97.3 69 18 176/84 95 Room Air 08/18/20 19:40 97.3 69 18 176/84 (114) 95 Room Air Laboratory Tests Test 08/18/20 20:00 08/18/20 20:15 08/19/20 09:25 White Blood Count 5.7 K/UL (4.8-10.8) 5.1 K/UL (4.8-10.8) Red Blood Count 2.85 M/UL (4.70-6.10) L 2.72 M/UL (4.70-6.10) L Hemoglobin 8.5 G/DL (14.2-18.0) L 7.8 G/DL (14.2-18.0) L Hematocrit 27.1 % (42.0-52.0) L 25.6 % (42.0-52.0) L Mean Corpuscular Volume 95 FL (80-99) 94 FL (80-99) Mean Corpuscular Hemoglobin 29.8 PG (27.0-31.0) 28.6 PG (27.0-31.0) Mean Corpuscular Hemoglobin Concent 31.2 G/DL (32.0-36.0) L 30.4 G/DL (32.0-36.0) L Red Cell Distribution Width 15.5 % (11.6-14.8) H 15.0 % (11.6-14.8) H Platelet Count 167 K/UL (150-450) 171 K/UL (150-450) Mean Platelet Volume 6.5 FL (6.5-10.1) 6.4 FL (6.5-10.1) L Neutrophils (%) (Auto) 41.7 % (45.0-75.0) L % (45.0-75.0) Lymphocytes (%) (Auto) 36.9 % (20.0-45.0) % (20.0-45.0) Monocytes (%) (Auto) 14.7 % (1.0-10.0) H % (1.0-10.0) Eosinophils (%) (Auto) 5.2 % (0.0-3.0) H % (0.0-3.0) Basophils (%) (Auto) 1.5 % (0.0-2.0) % (0.0-2.0) Prothrombin Time 12.5 SEC (9.30-11.50) H Prothromb Time International Ratio 1.1 (0.9-1.1) Activated Partial Thromboplast Time 35 SEC (23-33) H Sodium Level 134 MMOL/L (136-145) L 135 MMOL/L (136-145) L Potassium Level 5.5 MMOL/L (3.5-5.1) H 5.0 MMOL/L (3.5-5.1) Chloride Level 100 MMOL/L (98-107) 101 MMOL/L (98-107) Carbon Dioxide Level 28 MMOL/L (21-32) 27 MMOL/L (21-32) Anion Gap 6 mmol/L (5-15) 7 mmol/L (5-15) Blood Urea Nitrogen 48 mg/dL (7-18) H 55 mg/dL (7-18) H Creatinine 6.4 MG/DL (0.55-1.30) H 6.8 MG/DL (0.55-1.30) H Estimat Glomerular Filtration Rate 8.5 mL/min (>60) 7.9 mL/min (>60) Glucose Level 121 MG/DL (74-106) H 116 MG/DL (74-106) H Calcium Level 8.4 MG/DL (8.5-10.1) L 8.0 MG/DL (8.5-10.1) L Total Bilirubin 0.3 MG/DL (0.2-1.0) Aspartate Amino Transf (AST/SGOT) 44 U/L (15-37) H Alanine Aminotransferase (ALT/SGPT) 19 U/L (12-78) Alkaline Phosphatase 105 U/L (46-116) Troponin I 0.181 ng/mL (0.000-0.056) 0.164 ng/mL (0.000-0.056) Total Protein 6.5 G/DL (6.4-8.2) Albumin 1.8 G/DL (3.4-5.0) L Globulin 4.7 g/dL Albumin/Globulin Ratio 0.4 (1.0-2.7) L Lactic Acid Level 1.00 mmol/L (0.4-2.0) Differential Total Cells Counted 100 Neutrophils % (Manual) 46 % (45-75) Lymphocytes % (Manual) 37 % (20-45) Monocytes % (Manual) 12 % (1-10) H Eosinophils % (Manual) 4 % (0-3) H Basophils % (Manual) 1 % (0-2) Band Neutrophils 0 % (0-8) Platelet Estimate Adequate Platelet Morphology Normal Polychromasia 1+ Hypochromasia 1+ Anisocytosis 1+ Calcium (Send out) Pending Phosphorus Level 4.1 MG/DL (2.5-4.9) Iron Level 46 ug/dL (50-175) L Total Iron Binding Capacity 127 ug/dL (250-450) L Percent Iron Saturation 36 % (15-50) Unsaturated Iron Binding 81 ug/dL (112-346) L Parathyroid Hormone (Intact) Pending Microbiology Date/Time Source Procedure Growth Status 08/18/20 20:00 Nasopharynx SARS-CoV-2 RdRp Gene Assay - Final Complete Derek Shah MD Aug 19, 2020 16:52
[2020-08-19] MEDS ORDERED: HUMALOG100 UNIT/4 SUBQ (18:17)
[2020-08-19] MEDS ORDERED: ASPIRIN-LOW81 MG ORAL (18:17)
[2020-08-19] MEDS ORDERED: CATAPRES0.1 MG ORAL (18:17)
--- NOTE | 2020-08-19 19:00 | Consultation ---
DATE OF CONSULTATION: 08/19/2020 NOTE: INCOMPLETE DICTATION GASTROLOGY CONSULTATION CHIEF COMPLAINT: I was asked to see this patient by Dr. Salvatore Borrero for evaluation of anemia and nausea. HISTORY OF PRESENT ILLNESS: The patient is a 79-year-old Haitian man with multiple medical problems including end-stage renal disease. The patient was brought into the hospital due to anemia. The patient denies any abdominal pain or hematochezia. He was admitted last month to [facility] in [place], where he did have lower gastrointestinal bleeding. At that time, he underwent a colonoscopy showing diverticulosis and a few diminutive polyps were noted as well. He was found to have bleeding from diverticulosis, which has resolved. Of note, however, the patient has chronic nausea dating back more than a year ago. He has had extensive outpatient workup including an endoscopy in 2017, which showed duodenal ulcers, a hiatal hernia, which was 3 cm. Pathology was negative for Helicobacter pylori. Ultrasound was done showing a small gallbladder sludge. HIDA scan was done, which was normal without CCK. Abdomen and pelvic CT scan showed a possible partial small-bowel obstruction, a ventral hernia, and diverticulosis. An upper GI small-bowel followthrough was done showing a hiatal hernia, nonobstructing Schatzki ring, and mildly distended small-bowel loops. The gastric emptying study was normal, and a HIDA scan with CCK showed mildly abnormal findings with an ejection fraction of 32%, normal being more than 35%. Finally, recent colonoscopy showed diverticulosis and colonic polyps. PAST MEDICAL HISTORY: History of end-stage renal disease, on dialysis, diabetes, history of anemia, syncope. Saqib Hopkins M.D. DR: DOYLE JOB#: [id number] CC:
--- NOTE | 2020-08-19 19:15 | Consultation ---
DATE OF CONSULTATION: 08/19/2020 CARDIOLOGY CONSULTATION REFERRING PHYSICIAN: Salvatore Borrero D.O. REASON FOR CONSULTATION: Management of hypertension in a patient with bundle-branch block and end-stage renal disease. HISTORY OF PRESENT ILLNESS: The patient is a 76-year-old Irish gentleman, resident of an assisted living, with hypertension, end-stage renal disease, on hemodialysis, diabetes, history of CVA, anemia, gastroesophageal reflux disease, as well as coronary artery disease, hyperlipidemia, and seizure disorder, as well as history of recent GI bleed, status post colonoscopy at [facility]. The patient was sent for increased generalized weakness and was noted to have low hemoglobin. In the emergency room, the patient's blood pressure was 176/84 and hemoglobin was 8.5. Potassium was 5.5 and creatinine was 6.4. The patient was admitted and pancultured and started on empiric antibiotic. Cardiology consultation was requested for further evaluation and management. REVIEW OF SYSTEMS: Negative other than what is mentioned in history of present illness. PAST MEDICAL HISTORY: As mentioned above. FAMILY HISTORY: Noncontributory. ALLERGIES: He has no known drug allergies. MEDICATIONS: Reconciliation includes Plavix, Coreg, Lipitor, Januvia, and primidone. PHYSICAL EXAMINATION: VITAL SIGNS: Blood pressure of 163/64, pulse is 57, respirations 18, and temperature 97.5. NECK: No JVD. LUNGS: Clear. CARDIOVASCULAR: Regular S1 and S2 with no gallop or murmur. ABDOMEN: Soft. EXTREMITIES: No pitting edema. He has dialysis access in the left upper extremity AV shunt that has a bruit and a thrill. LABORATORY AND DIAGNOSTIC DATA: His labs show white count of 5.1, hemoglobin 7.8, hematocrit 25.6, and platelet count of 171. Sodium 135, potassium 5.0, BUN of 55, creatinine 6.8, and glucose of 116. Troponin 0.164 and 0.181. ASSESSMENT AND PLAN: 1. Elevated troponin of 0.181, but decreased to 0.164. The patient does not have any chest pain. This could be due to the patient's renal failure. EKG does not show any acute ischemic changes he has underlying right bundle-branch block. I will repeat the EKG and troponin in the morning and get an echocardiogram for further evaluation. In the meantime, the patient will stay on Lipitor 80 mg at bedtime and Plavix 75 mg daily and Coreg 25 mg b.i.d. 2. Accelerated hypertension, on Coreg 25 mg b.i.d. and start the patient on amlodipine 5 mg b.i.d. and p.r.n. clonidine. 3. End-stage renal disease, on hemodialysis. 4. Anemia, likely due to renal failure. 5. Hyperkalemia, due to renal failure. 6. History of lower GI bleed, status post colonoscopy at [facility]. Follow up with Dr. Irving. 7. History of seizure disorder. 8. History of CVA. Thank you very much for allowing me to participate in the care of this patient. Please do not hesitate to contact me for any questions regarding my evaluation. Derek Shah M.D. DR: SHANELL JOB#: [id number] CC:
[2020-08-19] MEDS ORDERED: COLLAGENASE1 EACH TOPIC (19:23)
[2020-08-19] MEDS ORDERED: JANUVIA25 MG ORAL (19:23)
[2020-08-19] MEDS ORDERED: CARAFATE1 G1 ORAL (19:23)
[2020-08-19] MEDS ORDERED: ACTOS15 MG ORAL (19:23)
[2020-08-19] MEDS ORDERED: IPRATROPIU0.2 MG/1 M HHN (19:23)
[2020-08-19] MEDS ORDERED: MINOXIDIL2.5 MG PO (19:23)
[2020-08-19] MEDS ORDERED: ACETAMINOPHEN325 M1 ORAL (19:23)
[2020-08-19] MEDS ORDERED: REGLAN10 MG ORAL (19:23)
[2020-08-19] MEDS ORDERED: LACTULOSE20 GM/301 ORAL (19:23)
[2020-08-19] MEDS ORDERED: VITAMIN B COMP1 EAC5 PO (19:23)
[2020-08-19] MEDS ORDERED: ZOLPIDEM TARTRAT5 MG ORAL (19:23)
[2020-08-19 20:00] VITALS: BP 168/78
[2020-08-19] MEDS: cefTRIAXone 1 GM in D5W 55 ML IVPB SCH (20:54)
[2020-08-19] MEDS: Atorvastatin 80mg tab ORAL SCH (20:54)
[2020-08-20] VITALS: BP 162/82
[2020-08-20] MEDS: Tylenol #3 tab (300mg/30mg) ORAL PRN ×4 (00:09→20:42)
[2020-08-20 04:00] VITALS: BP 156/86
[2020-08-20 05:36] LABS: HEMATOCRIT 24.7 % (42.0-52.0); HEMOGLOBIN 7.5 G/DL (14.2-18.0); MEAN CORPUSCULAR VOLUME 94 FL (80-99); PLATELET COUNT 154 K/UL (150-450); RED BLOOD COUNT 2.64 M/UL (4.70-6.10); RED CELL DISTRIBUTION WIDTH 14.9 % (11.6-14.8); WHITE BLOOD COUNT 5.4 K/UL (4.8-10.8)
--- NOTE | 2020-08-20 06:00 | Consultation ---
History of Present Illness General Chief Complaint: Abnormal Labs Referring physician: Dr Borrero Reason for Consultation: poss PNA Present Illness Allergies: Coded Allergies: No Known Allergies (Unverified , 06/09/15) Medication History Scheduled Aspirin (Aspirin EC), 81 MG ORAL DAILY, (Reported) Atorvastatin (Lipitor), 80 MG ORAL BEDTIME, (Reported) Carvedilol (Coreg), 25 MG ORAL TWICE A DAY, (Reported) Clonidine Hcl* (Catapres*), 0.1 MG ORAL EVERY 8 HOURS, (Reported) Clopidogrel* (Clopidogrel*), 75 MG ORAL DAILY, (Reported) Collagenase Clostridium Hist. (Collagenase), 250 GM TOPIC QHS, (Reported) Docusate Sodium (Docusate Sodium), 100 MG ORAL DAILY, (Reported) Insulin Lispro (Humalog), 0 SUBQ ACHS, (Reported) Ipratropium Lucien 0.5MG/2.5ML (Ipratropium Lucien 0.5MG/2.5ML), 0.5 MG HHN Q4HR, (Reported) Lactulose (Lactulose*), 30 ML ORAL BID, (Reported) Levetiracetam* (Levetiracetam*), 500 MG ORAL TWICE A DAY, (Reported) Loratadine (Claritin*), 10 MG PO DAILY, (Reported) Metoclopramide Hcl* (Reglan*), 10 MG ORAL BID, (Reported) Minoxidil* (Loniten*), 2.5 MG PO BID, (Reported) Montelukast Sodium* (Montelukast Sodium*), 10 MG ORAL DAILY, (Reported) Pantoprazole (Pantoprazole), 40 MG ORAL DAILY, (Reported) Pioglitazone Hcl* (Actos*), 15 MG ORAL DAILY, (Reported) Primidone (Mysoline), 50 MG PO BEDTIME, (Reported) Sitagliptin* (Januvia*), 25 MG ORAL DAILY, (Reported) Sucralfate* (Carafate*), 1 GM ORAL AC, (Reported) Scheduled PRN Acetaminophen* (Acetaminophen 325MG Tablet*), 325 MG ORAL Q4H PRN for For Pain, (Reported) Acetaminophen* (Acetaminophen 325MG Tablet*), 650 MG ORAL Q4H PRN for For Pain, (Reported) Ondansetron* (Zofran*), 4 MG ORAL Q6H PRN for Nausea & Vomiting, (Reported) Zolpidem Tartrate* (Zolpidem Tartrate*), 5 MG ORAL BEDTIME PRN for Insomnia, (Reported) Miscellaneous Medications Vitamin B Complex (Vitamin B Complex), 1 EACH PO, (Reported) Discontinued Medications Amlodipine Besylate (Norvasc), 5 MG ORAL Q12HR Discontinued Reason: MD discontinued med Folic Acid/Vitamin B Comp W-C (Jen-Sandeep Tablet), 1 TAB PO DAILY, (Reported) Discontinued Reason: MD discontinued med Hydralazine HCl (Hydralazine HCl), 25 MG PO Q8HR, (Reported) Discontinued Reason: MD discontinued med Hydrocodone Bit/Acetaminophen 5-325* (Berwick 5-325 Tablet*), 1 TAB ORAL Q4H PRN for For Pain, (Reported) Discontinued Reason: MD discontinued med Sevelamer Carbonate* (Renvela*), 800 MG ORAL THREE TIMES A DAY, (Reported) Discontinued Reason: MD discontinued med Sitagliptin* (Januvia*), 25 MG ORAL DAILY, (Reported) Discontinued Reason: Therapy completed Trazodone Hcl* (Desyrel*), 150 MG ORAL BEDTIME, (Reported) Discontinued Reason: MD discontinued med Patient History Healthcare decision maker Resuscitation status Advanced Directive on File Physical Exam Last 24 Hour Vital Signs Date Time Temp Pulse Resp B/P (MAP) Pulse Ox O2 Delivery O2 Flow Rate FiO2 08/20/20 04:00 96.9 68 18 156/86 (109) 99 08/20/20 04:00 67 08/20/20 00:39 97.7 08/20/20 00:00 98.1 70 18 162/82 (108) 96 08/20/20 00:00 77 08/19/20 22:21 72 08/19/20 21:00 Room Air 08/19/20 21:00 62 148/82 08/19/20 20:00 64 08/19/20 20:00 97.7 68 18 168/78 (108) 98 08/19/20 17:00 62 168/74 08/19/20 16:00 97.7 62 20 168/74 (105) 96 08/19/20 16:00 52 08/19/20 12:28 97.5 08/19/20 12:00 97.7 57 20 163/64 (97) 98 08/19/20 12:00 54 08/19/20 11:15 65 164/71 08/19/20 09:15 65 164/71 08/19/20 09:00 Room Air 08/19/20 08:00 97.5 65 20 164/71 (102) 95 08/19/20 08:00 62 Intake and Output 08/19/20 08/20/20 19:00 07:00 Output Total 2000 ml Balance -2000 ml Output Hemodialysis UF 2000 ml # Bowel Movements 1 Laboratory Tests Test 08/19/20 09:25 08/19/20 17:00 08/20/20 00:54 08/20/20 04:20 White Blood Count 5.1 K/UL (4.8-10.8) 5.4 K/UL (4.8-10.8) Red Blood Count 2.72 M/UL (4.70-6.10) L 2.64 M/UL (4.70-6.10) L Hemoglobin 7.8 G/DL (14.2-18.0) L 7.5 G/DL (14.2-18.0) L Hematocrit 25.6 % (42.0-52.0) L 24.7 % (42.0-52.0) L Mean Corpuscular Volume 94 FL (80-99) 94 FL (80-99) Mean Corpuscular Hemoglobin 28.6 PG (27.0-31.0) 28.6 PG (27.0-31.0) Mean Corpuscular Hemoglobin Concent 30.4 G/DL (32.0-36.0) L 30.5 G/DL (32.0-36.0) L Red Cell Distribution Width 15.0 % (11.6-14.8) H 14.9 % (11.6-14.8) H Platelet Count 171 K/UL (150-450) 154 K/UL (150-450) Mean Platelet Volume 6.4 FL (6.5-10.1) L 6.2 FL (6.5-10.1) L Neutrophils (%) (Auto) % (45.0-75.0) % (45.0-75.0) Lymphocytes (%) (Auto) % (20.0-45.0) % (20.0-45.0) Monocytes (%) (Auto) % (1.0-10.0) % (1.0-10.0) Eosinophils (%) (Auto) % (0.0-3.0) % (0.0-3.0) Basophils (%) (Auto) % (0.0-2.0) % (0.0-2.0) Differential Total Cells Counted 100 Neutrophils % (Manual) 46 % (45-75) Pending Lymphocytes % (Manual) 37 % (20-45) Pending Monocytes % (Manual) 12 % (1-10) H Eosinophils % (Manual) 4 % (0-3) H Basophils % (Manual) 1 % (0-2) Band Neutrophils 0 % (0-8) Platelet Estimate Adequate Pending Platelet Morphology Normal Pending Polychromasia 1+ Hypochromasia 1+ Anisocytosis 1+ Sodium Level 135 MMOL/L (136-145) L Pending Potassium Level 5.0 MMOL/L (3.5-5.1) Pending Chloride Level 101 MMOL/L (98-107) Pending Carbon Dioxide Level 27 MMOL/L (21-32) Pending Anion Gap 7 mmol/L (5-15) Blood Urea Nitrogen 55 mg/dL (7-18) H Pending Creatinine 6.8 MG/DL (0.55-1.30) H Pending Estimat Glomerular Filtration Rate 7.9 mL/min (>60) Pending Glucose Level 116 MG/DL (74-106) H Pending Calcium Level 8.0 MG/DL (8.5-10.1) L Pending Calcium (Send out) Pending Phosphorus Level 4.1 MG/DL (2.5-4.9) Iron Level 46 ug/dL (50-175) L Total Iron Binding Capacity 127 ug/dL (250-450) L Percent Iron Saturation 36 % (15-50) Unsaturated Iron Binding 81 ug/dL (112-346) L Troponin I 0.164 ng/mL (0.000-0.056) 0.156 ng/mL (0.000-0.056) 0.168 ng/mL (0.000-0.056) Parathyroid Hormone (Intact) Pending Hepatitis B Surface Antigen Pending Height (Feet): 5 Height (Inches): 10.00 Weight (Pounds): 166 Medications Current Medications Medications (Trade) Dose Ordered Sig/Harriet Route PRN Reason Start Time Stop Time Status Last Admin Dose Admin Acetaminophen (Tylenol) 650 mg PRN PRN RECTAL TEMP>100.5 08/18/20 21:00 Acetaminophen (Tylenol) 650 mg Q6H PRN ORAL For Headache 08/19/20 01:30 09/18/20 01:29 08/19/20 23:08 Acetaminophen/ Codeine Phosphate (Tylenol #3) 1 tab Q4H PRN ORAL Pain Scale (6-10) 08/20/20 00:00 08/27/20 00:00 08/20/20 00:09 Albuterol/ Ipratropium (Albuterol/ Ipratropium) 3 ml Q4H PRN HHN sob 08/19/20 11:15 08/24/20 11:14 Amlodipine Besylate (Norvasc) 2.5 mg BID ORAL 08/19/20 17:00 09/19/20 08:59 Atorvastatin Calcium (Lipitor) 80 mg BEDTIME ORAL 08/19/20 21:00 11/17/20 20:59 08/19/20 20:54 Barium Sulfate (Varibar Honey) 250 ml NOW PRN MC RAD 08/19/20 12:45 08/22/20 12:43 Barium Sulfate (Varibar [place]) 240 ml NOW PRN MC RAD 08/19/20 12:45 08/22/20 12:43 Barium Sulfate (Varibar Pudding) 230 ml NOW PRN MC RAD 08/19/20 12:45 08/22/20 12:43 Barium Sulfate (Varibar Thin Liquid powder) 148 gm NOW PRN MC RAD 08/19/20 12:45 08/22/20 12:43 Carvedilol (Coreg) 25 mg EVERY 12 HOURS ORAL 08/19/20 09:00 09/18/20 08:59 08/19/20 09:15 Ceftriaxone Sodium 1 gm/ Dextrose 55 ml @ 110 mls/hr Q24H IVPB 08/19/20 21:00 08/26/20 20:59 08/19/20 20:54 Clonidine HCl (Catapres Tab) 0.1 mg Q6H PRN ORAL SBP > 160 08/19/20 11:15 11/17/20 11:14 Clopidogrel Bisulfate (Plavix) 75 mg DAILY ORAL 08/19/20 09:00 09/18/20 08:59 08/19/20 09:15 Docusate Sodium (Colace) 100 mg DAILY ORAL 08/19/20 09:00 09/18/20 08:59 08/19/20 09:16 Epoetin Bill (Epoetin Bill(ESRD on dialysis)) 10,000 unit FRI-FRI-FRI SUBQ 08/21/20 21:00 11/19/20 20:59 Famotidine (Pepcid) 20 mg DAILY ORAL 08/20/20 09:00 11/18/20 08:59 Levetiracetam (Keppra) 500 mg Q12HR ORAL 08/19/20 09:00 10/03/20 08:59 08/19/20 20:54 Loratadine (Claritin 10mg) 10 mg DAILY ORAL 08/19/20 09:00 09/18/20 08:59 08/19/20 09:15 Montelukast Sodium (Singulair) 10 mg QPM ORAL 08/19/20 16:30 11/17/20 16:29 Ondansetron HCl (Zofran) 4 mg Q6H PRN IVP Nausea & Vomiting 08/19/20 10:00 09/18/20 09:59 Pantoprazole (Protonix) 40 mg EVERY 12 HOURS ORAL 08/19/20 09:00 09/18/20 08:59 08/19/20 20:54 Primidone (Mysoline) 50 mg BEDTIME ORAL 08/19/20 21:00 09/18/20 20:59 08/19/20 20:54 Sitagliptin Phosphate (Januvia) 25 mg ACBREAKFAST ORAL 08/20/20 06:30 09/19/20 06:29 Assessment/Plan Assessment/Plan: Hematology Consultation Chief Complaint: infiltarte on CXR ; possible PNA Referring physician: Dr Borrero Reason for Consultation: Anemia Present Illness 79 years old male, resident of assisted living, with PMH of CVA, ESRD, on hemodialysis, HTN, DM, anemia, GERD, history of CVA, atherosclerotic heart disease, hyperlipidemia, seizure disorder, recent GI bleeding, s/p colonoscopy at [facility], was sent for increased generalized weakness. Facility noted low hemoglobin. transferred here for transfusion. Upon evaluation blood pressure was elevated 176/84 . CXR demonstrated right mid and basilar airspace opacities. Allergies: No Known Allergies (Unverified , 06/09/15) Medication History Scheduled Atorvastatin (Lipitor), 80 MG ORAL BEDTIME, (Reported) Carvedilol (Coreg), 25 MG ORAL TWICE A DAY, (Reported) Clopidogrel* (Clopidogrel*), 75 MG ORAL DAILY, (Reported) Docusate Sodium (Docusate Sodium), 100 MG ORAL DAILY, (Reported) Levetiracetam* (Levetiracetam*), 500 MG ORAL TWICE A DAY, (Reported) Loratadine (Claritin*), 10 MG PO DAILY, (Reported) Montelukast Sodium* (Montelukast Sodium*), 10 MG ORAL DAILY, (Reported) Pantoprazole (Pantoprazole), 40 MG ORAL TWICE A DAY, (Reported) Primidone (Mysoline), 50 MG PO BEDTIME, (Reported) Sitagliptin* (Januvia*), 25 MG ORAL DAILY, (Reported) Scheduled PRN Acetaminophen* (Acetaminophen 325MG Tablet*), 325 MG ORAL Q4H PRN for For Pain, (Reported) Ondansetron* (Zofran*), 4 MG ORAL Q6H PRN for Nausea & Vomiting, (Reported) Discontinued Medications Amlodipine Besylate (Norvasc), 5 MG ORAL Q12HR Discontinued Reason: MD discontinued med Folic Acid/Vitamin B Comp W-C (Jen-Sandeep Tablet), 1 TAB PO DAILY, (Reported) Discontinued Reason: MD discontinued med Hydralazine HCl (Hydralazine HCl), 25 MG PO Q8HR, (Reported) Discontinued Reason: MD discontinued med Hydrocodone Bit/Acetaminophen 5-325* (Berwick 5-325 Tablet*), 1 TAB ORAL Q4H PRN for For Pain, (Reported) Discontinued Reason: MD discontinued med Sevelamer Carbonate* (Renvela*), 800 MG ORAL THREE TIMES A DAY, (Reported) Discontinued Reason: MD discontinued med Trazodone Hcl* (Desyrel*), 150 MG ORAL BEDTIME, (Reported) Discontinued Reason: MD discontinued med Patient History History Provided By: Patient Healthcare decision maker Resuscitation status Full code Advanced Directive on File Past Medical/Surgical History: (1) CVA (cerebral vascular accident) (2) ESRD (end stage renal disease) (3) Anemia Review of Systems Constitutional: Reports: weakness Eye: Reports: no symptoms ENT: Reports: no symptoms Respiratory: Reports: shortness of breath Gastrointestinal: Reports: other - recent GI bleeding, s/p colonoscopy at [facility] Genitourinary: Reports: other - ESRD, on HD Musculoskeletal: Reports: muscle stiffness Skin: Reports: no symptoms Psychiatric: Reports: depressed feelings Neurological: Reports: seizure, other - hx of CVA Endocrine: Reports: other - DB Hematologic/Lymphatic: Reports: anemia Physical Exam General Appearance: no apparent distress, other - bedridden Lines, tubes and drains: peripheral HEENT: normocephalic, atraumatic, anicteric, mucous membranes moist Neck: non-tender, supple Respiratory/Chest: lungs clear - with decreased BS , no accessory muscle use Cardiovascular/Chest: normal rate, regular rhythm - SR on tele Abdomen: normal bowel sounds, non tender, soft Extremities: normal capillary refill, + LUE AV shunt + bruit/thrill Skin Exam: warm/dry Neurologic: abnormal gait, alert, responsive Musculoskeletal: atrophy - BLE Labs: noted Imaging: reviewed Medications ASSESSMENT/RECS # Anemia due to underlying kidney disease, long standing, is on HD --> ferritin and occult blood ordered --> consider use of iron as needed based on above --> continue on EPOGEN --> renal eval as well --> no e/o hemolysis -> recent low GI bleeding , status post colonoscopy at [facility] # Generalized weakness due to fatigue/pna --> Possible pneumonia --> abx per pulm CTX # Elevated troponin --> due to esrd, cards eval # Hyperkalemia --> kayxelate prn # Hypertension with initial hypertensive urgency # HL continue Plavix, statin # ESRD on hemodialysis -> HD # Diabetes mellitus # Dvt ppx scds Appreciate consultation and dw Rn Nimesh New MD Aug 20, 2020 06:00
[2020-08-20] MEDS: sitaGLIPtin 25mg tab ORAL SCH (06:17)
[2020-08-20 06:47] LABS: CREATININE 5.2 MG/DL (0.55-1.30); POTASSIUM 4.5 MMOL/L (3.5-5.1)
[2020-08-20 08:00] VITALS: BP 163/61
[2020-08-20] MEDS: Carvedilol 25mg Tab ORAL SCH ×2 (08:51→20:40)
[2020-08-20] MEDS: Docusate 100mg cap ORAL SCH (08:51)
--- NOTE | 2020-08-20 09:17 | General Progress Note ---
Subjective Constitutional: Reports: weakness Allergies: Coded Allergies: No Known Allergies (Unverified , 06/09/15) All Systems: reviewed and negative except above Subjective calm in bed Objective Last 24 Hour Vital Signs Date Time Temp Pulse Resp B/P (MAP) Pulse Ox O2 Delivery O2 Flow Rate FiO2 08/20/20 08:51 70 163/61 08/20/20 08:50 70 163/61 08/20/20 08:00 98.2 70 20 163/61 (95) 97 08/20/20 04:00 96.9 68 18 156/86 (109) 99 08/20/20 04:00 67 08/20/20 00:39 97.7 08/20/20 00:00 98.1 70 18 162/82 (108) 96 08/20/20 00:00 77 08/19/20 22:21 72 08/19/20 21:00 Room Air 08/19/20 21:00 62 148/82 08/19/20 20:00 64 08/19/20 20:00 97.7 68 18 168/78 (108) 98 08/19/20 17:00 62 168/74 08/19/20 16:00 97.7 62 20 168/74 (105) 96 08/19/20 16:00 52 08/19/20 12:28 97.5 08/19/20 12:00 97.7 57 20 163/64 (97) 98 08/19/20 12:00 54 08/19/20 11:15 65 164/71 Intake and Output 08/19/20 08/20/20 19:00 07:00 Output Total 2000 ml Balance -2000 ml Output Hemodialysis UF 2000 ml # Bowel Movements 1 Laboratory Tests 08/19/20 09:25: White Blood Count 5.1, Red Blood Count 2.72L, Hemoglobin 7.8L, Hematocrit 25.6L, Mean Corpuscular Volume 94, Mean Corpuscular Hemoglobin 28.6, Mean Corpuscular Hemoglobin Concent 30.4L, Red Cell Distribution Width 15.0H, Platelet Count 171, Mean Platelet Volume 6.4L, Neutrophils (%) (Auto) , Lymphocytes (%) (Auto) , Monocytes (%) (Auto) , Eosinophils (%) (Auto) , Basophils (%) (Auto) , Diff erential Total Cells Counted 100, Neutrophils % (Manual) 46, Lymphocytes % (Manual) 37, Monocytes % (Manual) 12H, Eosinophils % (Manual) 4H, Basophils % (Manual) 1, Band Neutrophils 0, Platelet Estimate Adequate, Platelet Morphology Normal, Polychromasia 1+, Hypochromasia 1+, Anisocytosis 1+, Sodium Level 135L, Potassium Level 5.0, Chloride Level 101, Carbon Dioxide Level 27, Anion Gap 7, Blood Urea Nitrogen 55H, Creatinine 6.8H, Estimat Glomerular Filtration Rate 7.9, Glucose Level 116H, Calcium Level 8.0L, Calcium (Send out) [Pending], Phosphorus Level 4.1, Iron Level 46L, Total Iron Binding Capacity 127L, Percent Iron Saturation 36, Unsaturated Iron Binding 81L, Troponin I 0.164H, Parathyroid Hormone (Intact) [Pending] 08/19/20 17:00: Troponin I 0.156H, Hepatitis B Surface Antigen [Pending] 08/20/20 00:54: Troponin I 0.168H 08/20/20 04:20: White Blood Count 5.4, Red Blood Count 2.64L, Hemoglobin 7.5L, Hematocrit 24.7L, Mean Corpuscular Volume 94, Mean Corpuscular Hemoglobin 28.6, Mean Corpuscular Hemoglobin Concent 30.5L, Red Cell Distribution Width 14.9H, Platelet Count 154, Mean Platelet Volume 6.2L, Neutrophils (%) (Auto) , Lymphocytes (%) (Auto) , Monocytes (%) (Auto) , Eosinophils (%) (Auto) , Basophils (%) (Auto) , Neutrophils % (Manual) [Pending], Lymphocytes % (Manual) [Pending], Platelet Estimate [Pending], Platelet Morphology [Pending], Sodium Level 137, Potassium Level 4.5, Chloride Level 100, Carbon Dioxide Level 29, Anion Gap 8, Blood Urea Nitrogen 38H, Creatinine 5.2H, Estimat Glomerular Filtration Rate 10.8, Glucose Level 165H, Calcium Level 8.0L Height (Feet): 5 Height (Inches): 10.00 Weight (Pounds): 166 General Appearance: lethargic EENT: normal ENT inspection Neck: normal alignment Cardiovascular: normal peripheral pulses, normal rate, regular rhythm Respiratory/Chest: chest wall non-tender, lungs clear, normal breath sounds Abdomen: normal bowel sounds, non tender, soft Extremities: normal inspection Edema: no edema noted Arm (L), no edema noted Arm (R), no edema noted Leg (L), no edema noted Leg (R), no edema noted Pedal (L), no edema noted Pedal (R), no edema noted Generalized Neurologic: motor weakness Skin: normal pigmentation, warm/dry Assessment/Plan Problem List: (1) Weak ICD Codes: R53.1 - Weakness SNOMED: 33333454 (2) Asthma ICD Codes: J45.909 - Unspecified asthma, uncomplicated SNOMED: 198370808 (3) Depressed ICD Codes: F32.9 - Major depressive disorder, single episode, unspecified SNOMED: 39626743 (4) CVA (cerebral vascular accident) ICD Codes: I63.9 - Cerebral infarction, unspecified SNOMED: 893204625 (5) Weakness ICD Codes: R53.1 - Weakness SNOMED: 29558054 (6) Anemia ICD Codes: D64.9 - Anemia, unspecified SNOMED: 398333136 (7) ESRD (end stage renal disease) ICD Codes: N18.6 - End stage renal disease SNOMED: 58331957 Status: unchanged Assessment/Plan: pt diet eval transfuse prn cbc bmp in am dialysis prn aru Salvatore Higginbotham DO Aug 20, 2020 09:17
--- NOTE | 2020-08-20 10:45 | Pulmonology Progress Note ---
Subjective Allergies: Coded Allergies: No Known Allergies (Unverified , 06/09/15) All Systems: reviewed and negative except above Subjective remains afebrile, no leukocytosis on RA pulse ox stable Objective Last 24 Hour Vital Signs Date Time Temp Pulse Resp B/P (MAP) Pulse Ox O2 Delivery O2 Flow Rate FiO2 08/20/20 08:51 70 163/61 08/20/20 08:50 70 163/61 08/20/20 08:00 98.2 70 20 163/61 (95) 97 08/20/20 04:00 96.9 68 18 156/86 (109) 99 08/20/20 04:00 67 08/20/20 00:39 97.7 08/20/20 00:00 98.1 70 18 162/82 (108) 96 08/20/20 00:00 77 08/19/20 22:21 72 08/19/20 21:00 Room Air 08/19/20 21:00 62 148/82 08/19/20 20:00 64 08/19/20 20:00 97.7 68 18 168/78 (108) 98 08/19/20 17:00 62 168/74 08/19/20 16:00 97.7 62 20 168/74 (105) 96 08/19/20 16:00 52 08/19/20 12:28 97.5 08/19/20 12:00 97.7 57 20 163/64 (97) 98 08/19/20 12:00 54 08/19/20 11:15 65 164/71 Intake and Output 08/19/20 08/20/20 19:00 07:00 Output Total 2000 ml Balance -2000 ml Output Hemodialysis UF 2000 ml # Bowel Movements 1 Objective General Appearance: no apparent distress, bedridden, weak, awake and alert male in NAD Lines, tubes and drains: peripheral HEENT: normocephalic, atraumatic, anicteric, mucous membranes moist Neck: non-tender, supple Respiratory/Chest: lungs clear - with decreased BS , no accessory muscle use Cardiovascular/Chest: normal rate, regular rhythm - SR on tele Abdomen: normal bowel sounds, non tender, soft Extremities: normal capillary refill, no edema, other - LUE AV shunt + bruit/ thrill Skin Exam: warm/dry Neurologic: abnormal gait, alert, responsive Musculoskeletal: atrophy - BLE Microbiology Date/Time Source Procedure Growth Status 08/18/20 20:25 Blood Blood Culture - Preliminary NO GROWTH AFTER 24 HOURS Resulted 08/18/20 20:10 Blood Blood Culture - Preliminary NO GROWTH AFTER 24 HOURS Resulted 08/18/20 20:00 Nasopharynx SARS-CoV-2 RdRp Gene Assay - Final Complete Laboratory Tests 08/19/20 17:00: Troponin I 0.156H, Hepatitis B Surface Antigen [Pending] 08/20/20 00:54: Troponin I 0.168H 08/20/20 04:20: White Blood Count 5.4, Red Blood Count 2.64L, Hemoglobin 7.5L, Hematocrit 24.7L, Mean Corpuscular Volume 94, Mean Corpuscular Hemoglobin 28.6, Mean Corpuscular Hemoglobin Concent 30.5L, Red Cell Distribution Width 14.9H, Platelet Count 154, Mean Platelet Volume 6.2L, Neutrophils (%) (Auto) , Lymphocytes (%) (Auto) , Monocytes (%) (Auto) , Eosinophils (%) (Auto) , Basophils (%) (Auto) , Differential Total Cells Counted 100, Neutrophils % (Manual) 49, Lymphocytes % (Manual) 34, Monocytes % (Manual) 9, Eosinophils % (Manual) 7H, Basophils % (Manual) 1, Band Neutrophils 0, Platelet Estimate Adequate, Platelet Morphology Normal, Hypochromasia 1+, Anisocytosis 1+, Sodium Level 137, Potassium Level 4.5, Chloride Level 100, Carbon Dioxide Level 29, Anion Gap 8, Blood Urea Nitrogen 38H, Creatinine 5.2H, Estimat Glomerular Filtration Rate 10.8, Glucose Level 165H, Calcium Level 8.0L 08/20/20 09:15: Troponin I 0.181H, Ferritin 1082H Current Medications Medications (Trade) Dose Ordered Sig/Harriet Route PRN Reason Start Time Stop Time Status Last Admin Dose Admin Acetaminophen (Tylenol) 650 mg PRN PRN RECTAL TEMP>100.5 08/18/20 21:00 Acetaminophen (Tylenol) 650 mg Q6H PRN ORAL For Headache 08/19/20 01:30 09/18/20 01:29 08/19/20 23:08 Acetaminophen/ Codeine Phosphate (Tylenol #3) 1 tab Q4H PRN ORAL Pain Scale (6-10) 08/20/20 00:00 08/27/20 00:00 08/20/20 08:59 Albuterol/ Ipratropium (Albuterol/ Ipratropium) 3 ml Q4H PRN HHN sob 08/19/20 11:15 08/24/20 11:14 Amlodipine Besylate (Norvasc) 2.5 mg BID ORAL 08/19/20 17:00 09/19/20 08:59 08/20/20 08:50 Atorvastatin Calcium (Lipitor) 80 mg BEDTIME ORAL 08/19/20 21:00 11/17/20 20:59 08/19/20 20:54 Barium Sulfate (Varibar Honey) 250 ml NOW PRN MC RAD 08/19/20 12:45 08/22/20 12:43 Barium Sulfate (Varibar [place]) 240 ml NOW PRN MC RAD 08/19/20 12:45 08/22/20 12:43 Barium Sulfate (Varibar Pudding) 230 ml NOW PRN MC RAD 08/19/20 12:45 08/22/20 12:43 Barium Sulfate (Varibar Thin Liquid powder) 148 gm NOW PRN MC RAD 08/19/20 12:45 08/22/20 12:43 Carvedilol (Coreg) 25 mg EVERY 12 HOURS ORAL 08/19/20 09:00 09/18/20 08:59 08/20/20 08:51 Ceftriaxone Sodium 1 gm/ Dextrose 55 ml @ 110 mls/hr Q24H IVPB 08/19/20 21:00 08/26/20 20:59 08/19/20 20:54 Clonidine HCl (Catapres Tab) 0.1 mg Q6H PRN ORAL SBP > 160 08/19/20 11:15 11/17/20 11:14 Clopidogrel Bisulfate (Plavix) 75 mg DAILY ORAL 08/19/20 09:00 09/18/20 08:59 08/20/20 08:50 Docusate Sodium (Colace) 100 mg DAILY ORAL 08/19/20 09:00 09/18/20 08:59 08/20/20 08:51 Epoetin Bill (Epoetin Bill(ESRD on dialysis)) 10,000 unit FRI-FRI-FRI SUBQ 08/21/20 21:00 11/19/20 20:59 Famotidine (Pepcid) 20 mg DAILY ORAL 08/20/20 09:00 11/18/20 08:59 08/20/20 08:51 Levetiracetam (Keppra) 500 mg Q12HR ORAL 08/19/20 09:00 10/03/20 08:59 08/20/20 08:50 Loratadine (Claritin 10mg) 10 mg DAILY ORAL 08/19/20 09:00 09/18/20 08:59 08/20/20 08:50 Montelukast Sodium (Singulair) 10 mg QPM ORAL 08/19/20 16:30 11/17/20 16:29 Ondansetron HCl (Zofran) 4 mg Q6H PRN IVP Nausea & Vomiting 08/19/20 10:00 09/18/20 09:59 Pantoprazole (Protonix) 40 mg EVERY 12 HOURS ORAL 08/19/20 09:00 09/18/20 08:59 08/20/20 08:50 Primidone (Mysoline) 50 mg BEDTIME ORAL 08/19/20 21:00 09/18/20 20:59 08/19/20 20:54 Sitagliptin Phosphate (Januvia) 25 mg ACBREAKFAST ORAL 08/20/20 06:30 09/19/20 06:29 08/20/20 06:17 Assessment/Plan Assessment/Plan ASSESSMENT Generalized weakness Possible pneumonia Anemia Elevated troponin Hyperkalemia Hypertension with initial hypertensive urgency ESRD on hemodialysis Diabetes mellitus Recent low GI bleeding , status post colonoscopy at [facility] tele empiric abx -ceftriaxone for now, O2 prn titrate to keep sat above 92% pulm toilet fup with CXR in am if stable, will dc abx SCX if able COVID 19 NGT DVT prophylaxis serial troponin elevated, levels flat, no CP, no SOB cardio follows elev troponin likely due to renal failure tele stable , continue Plavix, statin BP management as per cardio recs HD as per nephro with close monitoring of volumes BS management with Januvia monitor HH with goal to keep Hgb > 7 continue EPO GI prophylaxis seizure precautions, continue Keppra case discussed and evaluated by supervising physician Aug 19, 2020 11:12 Ibis Berg NP Aug 20, 2020 10:45
--- NOTE | 2020-08-20 11:12 | General Progress Note ---
Subjective Date patient seen: Aug 20, 2020 Time patient seen: 10:45 Constitutional: Reports: weakness HEENT: Reports: no symptoms Cardiovascular: Reports: no symptoms Respiratory: Reports: no symptoms Gastrointestinal/Abdominal: Reports: nausea Genitourinary: Reports: no symptoms Neurologic/Psychiatric: Reports: no symptoms Endocrine: Reports: no symptoms Hematologic/Lymphatic: Reports: anemia Allergies: Coded Allergies: No Known Allergies (Unverified , 06/09/15) Subjective Patient was seen and examined. He is afebrile. no sob or chest pain. he had lower GI bleeding at [facility] recently per GI as well. Objective Last 24 Hour Vital Signs Date Time Temp Pulse Resp B/P (MAP) Pulse Ox O2 Delivery O2 Flow Rate FiO2 08/20/20 08:51 70 163/61 08/20/20 08:50 70 163/61 08/20/20 08:00 98.2 70 20 163/61 (95) 97 08/20/20 04:00 96.9 68 18 156/86 (109) 99 08/20/20 04:00 67 08/20/20 00:39 97.7 08/20/20 00:00 98.1 70 18 162/82 (108) 96 08/20/20 00:00 77 08/19/20 22:21 72 08/19/20 21:00 Room Air 08/19/20 21:00 62 148/82 08/19/20 20:00 64 08/19/20 20:00 97.7 68 18 168/78 (108) 98 08/19/20 17:00 62 168/74 08/19/20 16:00 97.7 62 20 168/74 (105) 96 08/19/20 16:00 52 08/19/20 12:28 97.5 08/19/20 12:00 97.7 57 20 163/64 (97) 98 08/19/20 12:00 54 08/19/20 11:15 65 164/71 Intake and Output 08/19/20 08/20/20 19:00 07:00 Output Total 2000 ml Balance -2000 ml Output Hemodialysis UF 2000 ml # Bowel Movements 1 Laboratory Tests 08/19/20 17:00: Troponin I 0.156H, Hepatitis B Surface Antigen [Pending] 08/20/20 00:54: Troponin I 0.168H 08/20/20 04:20: White Blood Count 5.4, Red Blood Count 2.64L, Hemoglobin 7.5L, Hematocrit 24.7L, Mean Corpuscular Volume 94, Mean Corpuscular Hemoglobin 28.6, Mean Corpuscular Hemoglobin Concent 30.5L, Red Cell Distribution Width 14.9H, Platelet Count 154, Mean Platelet Volume 6.2L, Neutrophils (%) (Auto) , Lymphocytes (%) (Auto) , Monocytes (%) (Auto) , Eosinophils (%) (Auto) , Basophils (%) (Auto) , Differential Total Cells Counted 100, Neutrophils % (Manual) 49, Lymphocytes % (Manual) 34, Monocytes % (Manual) 9, Eosinophils % (Manual) 7H, Basophils % (Manual) 1, Band Neutrophils 0, Platelet Estimate Adequate, Platelet Morphology Normal, Hypochromasia 1+, Anisocytosis 1+, Sodium Level 137, Potassium Level 4.5, Chloride Level 100, Carbon Dioxide Level 29, Anion Gap 8, Blood Urea Nitrogen 38H, Creatinine 5.2H, Estimat Glomerular Filtration Rate 10.8, Glucose Level 165H, Calcium Level 8.0L 08/20/20 09:15: Troponin I 0.181H, Ferritin 1082H Height (Feet): 5 Height (Inches): 10.00 Weight (Pounds): 166 General Appearance: no apparent distress, alert EENT: normal ENT inspection Neck: non-tender, normal alignment, supple Cardiovascular: normal rate, regular rhythm Respiratory/Chest: lungs clear, normal breath sounds Abdomen: non tender, soft Extremities: non-tender Edema: trace edema Neurologic: alert, responsive Skin: warm/dry Assessment/Plan Status: stable, unchanged Assessment/Plan: 1. Hyperkalemia - resolved. 2. ESRD on HD - on HD 3x/wk. 3. Anemia - most likely 2nd to Anemia of chronic disease due to ESRD - he had colonoscopy at [facility] per patient. 4. H/o Lower GI bleeding s/p Colonoscopy per patient at [facility]. 5. HTN - cont coreg 25 mg bid and start norvasc 2.5 mg bid and clonidine 0.1 mg. 6. 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 7. h/o lower GI bleed at [facility] per patient - will have GI see the patient. 8. Elevated Troponin - most likely 2nd to ERSD. Cardiology eval. Azizollahi,Farid MD Aug 20, 2020 11:12
[2020-08-20 12:00] VITALS: BP 162/56
--- NOTE | 2020-08-20 13:15 | Nephrology Progress Note ---
Assessment/Plan Assessment 1. End-stage renal disease. 2. Anemia of chronic kidney disease. 3. Renal osteodystrophy. 4. Hypertension. Plan dialysis as schedule continue epogen nutritional support monitoring phos and PTH Subjective Constitutional: Reports: malaise, weakness HEENT: Reports: no symptoms Genitourinary: Reports: no symptoms Neurologic/Psychiatric: Reports: no symptoms Subjective alert and awake had dialysis yesterday has poor apatite Objective Objective Last 24 Hour Vital Signs Date Time Temp Pulse Resp B/P (MAP) Pulse Ox O2 Delivery O2 Flow Rate FiO2 08/20/20 12:58 162/56 08/20/20 12:00 97.5 66 20 162/56 (91) 94 08/20/20 09:00 Room Air 08/20/20 08:51 70 163/61 08/20/20 08:50 70 163/61 08/20/20 08:00 64 08/20/20 08:00 98.2 70 20 163/61 (95) 97 08/20/20 04:00 96.9 68 18 156/86 (109) 99 08/20/20 04:00 67 08/20/20 00:39 97.7 08/20/20 00:00 98.1 70 18 162/82 (108) 96 08/20/20 00:00 77 08/19/20 22:21 72 08/19/20 21:00 Room Air 08/19/20 21:00 62 148/82 08/19/20 20:00 64 08/19/20 20:00 97.7 68 18 168/78 (108) 98 08/19/20 17:00 62 168/74 08/19/20 16:00 97.7 62 20 168/74 (105) 96 08/19/20 16:00 52 Intake and Output 08/19/20 08/20/20 19:00 07:00 Output Total 2000 ml Balance -2000 ml Output Hemodialysis UF 2000 ml # Bowel Movements 1 Laboratory Tests 08/19/20 17:00: Troponin I 0.156H, Hepatitis B Surface Antigen [Pending] 08/20/20 00:54: Troponin I 0.168H 08/20/20 04:20: White Blood Count 5.4, Red Blood Count 2.64L, Hemoglobin 7.5L, Hematocrit 24.7L, Mean Corpuscular Volume 94, Mean Corpuscular Hemoglobin 28.6, Mean Corpuscular Hemoglobin Concent 30.5L, Red Cell Distribution Width 14.9H, Platelet Count 154, Mean Platelet Volume 6.2L, Neutrophils (%) (Auto) , Lymphocytes (%) (Auto) , Monocytes (%) (Auto) , Eosinophils (%) (Auto) , Basophils (%) (Auto) , Diff erential Total Cells Counted 100, Neutrophils % (Manual) 49, Lymphocytes % (Manual) 34, Monocytes % (Manual) 9, Eosinophils % (Manual) 7H, Basophils % (Manual) 1, Band Neutrophils 0, Platelet Estimate Adequate, Platelet Morphology Normal, Hypochromasia 1+, Anisocytosis 1+, Sodium Level 137, Potassium Level 4.5, Chloride Level 100, Carbon Dioxide Level 29, Anion Gap 8, Blood Urea Nitrogen 38H, Creatinine 5.2H, Estimat Glomerular Filtration Rate 10.8, Glucose Level 165H, Calcium Level 8.0L 08/20/20 09:15: Troponin I 0.181H, Ferritin 1082H Height (Feet): 5 Height (Inches): 10.00 Weight (Pounds): 166 Objective GENERAL APPEARANCE: He is alert and oriented x3. No acute distress. HEENT: Normocephalic, normochromic. Extraocular muscles intact. Throat is clear. NECK: Supple. No lymphadenopathy. LUNGS: Clear to auscultation bilaterally. No wheezing, no rales CARDIOVASCULAR: Regular rate and rhythm. No murmur. No gallop. ABDOMEN: Soft, nontender, nondistended. Positive bowel sounds. No guarding. EXTREMITIES: Trace edema bilaterally. No cyanosis or clubbing. NEUROLOGIC: Alert and oriented x3. Responds to commands. SKIN: No rash. Ary Locke MD Aug 20, 2020 13:15
[2020-08-20 16:00] VITALS: BP 144/67
[2020-08-20] MEDS: Montelukast 10mg tablet ORAL SCH (16:24)
--- NOTE | 2020-08-20 17:14 | General Progress Note ---
Subjective Allergies: Coded Allergies: No Known Allergies (Unverified , 06/09/15) Subjective Feels OK still with nausea advised re w/u to date Objective Last 24 Hour Vital Signs Date Time Temp Pulse Resp B/P (MAP) Pulse Ox O2 Delivery O2 Flow Rate FiO2 08/20/20 16:00 63 08/20/20 16:00 98.6 60 18 144/67 (92) 95 08/20/20 12:58 162/56 08/20/20 12:00 67 08/20/20 12:00 97.5 66 20 162/56 (91) 94 08/20/20 09:00 Room Air 08/20/20 08:51 70 163/61 08/20/20 08:50 70 163/61 08/20/20 08:00 64 08/20/20 08:00 98.2 70 20 163/61 (95) 97 08/20/20 04:00 96.9 68 18 156/86 (109) 99 08/20/20 04:00 67 08/20/20 00:39 97.7 08/20/20 00:00 98.1 70 18 162/82 (108) 96 08/20/20 00:00 77 08/19/20 22:21 72 08/19/20 21:00 Room Air 08/19/20 21:00 62 148/82 08/19/20 20:00 64 08/19/20 20:00 97.7 68 18 168/78 (108) 98 Intake and Output 08/19/20 08/20/20 19:00 07:00 Output Total 2000 ml Balance -2000 ml Output Hemodialysis UF 2000 ml # Bowel Movements 1 Laboratory Tests 08/20/20 00:54: Troponin I 0.168H 08/20/20 04:20: White Blood Count 5.4, Red Blood Count 2.64L, Hemoglobin 7.5L, Hematocrit 24.7L, Mean Corpuscular Volume 94, Mean Corpuscular Hemoglobin 28.6, Mean Corpuscular Hemoglobin Concent 30.5L, Red Cell Distribution Width 14.9H, Platelet Count 154, Mean Platelet Volume 6.2L, Neutrophils (%) (Auto) , Lymphocytes (%) (Auto) , Monocytes (%) (Auto) , Eosinophils (%) (Auto) , Basophils (%) (Auto) , Differential Total Cells Counted 100, Neutrophils % (Manual) 49, Lymphocytes % (Manual) 34, Monocytes % (Manual) 9, Eosinophils % (Manual) 7H, Basophils % (Manual) 1, Band Neutrophils 0, Platelet Estimate Adequate, Platelet Morphology Normal, Hypochromasia 1+, Anisocytosis 1+, Sodium Level 137, Potassium Level 4.5, Chloride Level 100, Carbon Dioxide Level 29, Anion Gap 8, Blood Urea Nitrogen 38H, Creatinine 5.2H, Estimat Glomerular Filtration Rate 10.8, Glucose Level 165H, Calcium Level 8.0L 08/20/20 09:15: Troponin I 0.181H, Ferritin 1082H Height (Feet): 5 Height (Inches): 10.00 Weight (Pounds): 166 Neurologic: motor route carrier II-XII grossly normal Objective NCAT supple CTA RR Abd soft ND no edema Assessment/Plan Status: stable, unchanged Assessment/Plan: Assessment Chronic Nausea, W/u to date: 12/04/16 - EGD - DU x 4 HH x 3 cm path (-) for HP 06/04/19 - abd u/s - small gallbladder sludge 06/05/19 - HIDA Scan-- normal, no CCK given 10/09/19 - abd/pelvis CT - possible PSBO , ventral hernia and tics 10/15/19 - upper GI with SBFT - small HH, non-obstructing Schatzki's ring, mildly distended small bowel loops 12/02/19 - gastric emptying study normal 05/22/20 - HIDA SCAN with CCK mildly abnormal (EF 32%, normal >35%) 07/24/20 - Colonoscopy --> diminutive polyps and diverticulosis ESRD/HD DM h/o anemia h/o syncope CAD/SC PTCA/Stent 04/2015 HTN Hypercholesterolemia AAA GERD Gout h/o PUD/DU h/o a fib Recommendations - po as tolerated - monitor CBC - Repeat EGD when cleared from cardiology standpoint - Surgical consult for possible lap ela (? source of nausea) Saqib Hopkins MD Aug 20, 2020 17:14
--- NOTE | 2020-08-20 17:56 | Cardiac Electrophysiology PN ---
Assessment/Plan Assessment/Plan 1. Elevated troponin of 0.181, 0.164, 0.16, 0.16 and 0.18. in a patient with history of CABG at [facility] >20 years ago. Likely due to renal failure. Out side [place] [facility] is Dr Loco. The patient does not have any chest pain. EKG does not show any acute ischemic changes but has underlying right bundle-branch block. Echocardiogram showed EF 45%. Continue Lipitor 80 mg at bedtime and Plavix 75 mg daily and Coreg 25 mg b.i.d. 2. Accelerated hypertension, on Coreg 25 mg b.i.d. and amlodipine 2.5 mg b.i.d. and p.r.n. clonidine. 3. Frequent PVCs on 12 lead ECG today. EF 45%. Has old MA. No syncope. Continue Coreg 4. End-stage renal disease, on hemodialysis. 5. Anemia, likely due to renal failure. 6. Hyperkalemia, due to renal failure. 7. History of lower GI bleed, status post colonoscopy at [facility]. Follow up with Dr. Irving. 8. History of seizure disorder. 9. History of CVA. Subjective Subjective Had Bigeminal PVCs last night. No CP or SOB. In sinus bubba 40-50s Objective Last 24 Hour Vital Signs Date Time Temp Pulse Resp B/P (MAP) Pulse Ox O2 Delivery O2 Flow Rate FiO2 08/20/20 16:00 63 08/20/20 16:00 98.6 60 18 144/67 (92) 95 08/20/20 12:58 162/56 08/20/20 12:00 67 08/20/20 12:00 97.5 66 20 162/56 (91) 94 08/20/20 09:00 Room Air 08/20/20 08:51 70 163/61 08/20/20 08:50 70 163/61 08/20/20 08:00 64 08/20/20 08:00 98.2 70 20 163/61 (95) 97 08/20/20 04:00 96.9 68 18 156/86 (109) 99 08/20/20 04:00 67 08/20/20 00:39 97.7 08/20/20 00:00 98.1 70 18 162/82 (108) 96 10/25/20 00:00 77 08/19/20 22:21 72 08/19/20 21:00 Room Air 08/19/20 21:00 62 148/82 08/19/20 20:00 64 08/19/20 20:00 97.7 68 18 168/78 (108) 98 Intake and Output 08/19/20 08/20/20 19:00 07:00 Output Total 2000 ml Balance -2000 ml Output Hemodialysis UF 2000 ml # Bowel Movements 1 Laboratory Tests Test 08/20/20 00:54 08/20/20 04:20 08/20/20 09:15 08/20/20 17:15 Troponin I 0.168 ng/mL (0.000-0.056) 0.181 ng/mL (0.000-0.056) Pending White Blood Count 5.4 K/UL (4.8-10.8) Red Blood Count 2.64 M/UL (4.70-6.10) L Hemoglobin 7.5 G/DL (14.2-18.0) L Hematocrit 24.7 % (42.0-52.0) L Mean Corpuscular Volume 94 FL (80-99) Mean Corpuscular Hemoglobin 28.6 PG (27.0-31.0) Mean Corpuscular Hemoglobin Concent 30.5 G/DL (32.0-36.0) L Red Cell Distribution Width 14.9 % (11.6-14.8) H Platelet Count 154 K/UL (150-450) Mean Platelet Volume 6.2 FL (6.5-10.1) L Neutrophils (%) (Auto) % (45.0-75.0) Lymphocytes (%) (Auto) % (20.0-45.0) Monocytes (%) (Auto) % (1.0-10.0) Eosinophils (%) (Auto) % (0.0-3.0) Basophils (%) (Auto) % (0.0-2.0) Differential Total Cells Counted 100 Neutrophils % (Manual) 49 % (45-75) Lymphocytes % (Manual) 34 % (20-45) Monocytes % (Manual) 9 % (1-10) Eosinophils % (Manual) 7 % (0-3) H Basophils % (Manual) 1 % (0-2) Band Neutrophils 0 % (0-8) Platelet Estimate Adequate Platelet Morphology Normal Hypochromasia 1+ Anisocytosis 1+ Sodium Level 137 MMOL/L (136-145) Potassium Level 4.5 MMOL/L (3.5-5.1) Chloride Level 100 MMOL/L (98-107) Carbon Dioxide Level 29 MMOL/L (21-32) Anion Gap 8 mmol/L (5-15) Blood Urea Nitrogen 38 mg/dL (7-18) H Creatinine 5.2 MG/DL (0.55-1.30) H Estimat Glomerular Filtration Rate 10.8 mL/min (>60) Glucose Level 165 MG/DL (74-106) H Calcium Level 8.0 MG/DL (8.5-10.1) L Ferritin 1082 NG/ML (8-388) H Microbiology Date/Time Source Procedure Growth Status 08/18/20 20:25 Blood Blood Culture - Preliminary NO GROWTH AFTER 24 HOURS Resulted 08/18/20 20:10 Blood Blood Culture - Preliminary NO GROWTH AFTER 24 HOURS Resulted 08/18/20 20:00 Nasopharynx SARS-CoV-2 RdRp Gene Assay - Final Complete Objective NECK: No JVD. LUNGS: Clear. CARDIOVASCULAR: Regular S1 and S2 with no gallop or murmur. ABDOMEN: Soft. EXTREMITIES: No pitting edema. He has dialysis access in the left upper extremity AV shunt that has a bruit and a thrill. Derek Shah MD Aug 20, 2020 17:56
[2020-08-20 20:00] VITALS: BP 153/68
[2020-08-20] MEDS: Atorvastatin 80mg tab ORAL SCH (20:15)
[2020-08-20] MEDS: cefTRIAXone 1 GM in D5W 55 ML IVPB SCH (20:21)
--- NOTE | 2020-08-20 20:45 | Consultation ---
DATE OF CONSULTATION: 08/19/2020 GASTROENTEROLOGY CONSULTATION ADDENDUM CONSULTING PHYSICIAN: Saqib Hopkins MD. PAST MEDICAL HISTORY: History of coronary artery disease, status post myocardial infarction, status post PTCA and stent placement, hypertension, hypercholesterolemia, abdominal aortic aneurysm, gastroesophageal reflux disease, gout, history of peptic ulcer disease, and history of atrial fibrillation. PAST SURGICAL HISTORY: Status post PTCA and stent, status post aortic aneurysm repair, abdominal wall hernia repair with mesh, left arm AV fistula placement. FAMILY HISTORY: Negative. SOCIAL HISTORY: The patient was a previous smoker and also he previously drank occasionally. ALLERGIES: None. MEDICATIONS: See the chart list for details. REVIEW OF SYSTEMS: Otherwise negative. PHYSICAL EXAMINATION: GENERAL: Debilitated American man, seen in his room. HEENT: Normocephalic and atraumatic. NECK: Supple. CHEST: Clear to auscultation. CARDIAC: Revealed regular rate. ABDOMEN: Soft and nontender. EXTREMITIES: Revealed no edema. LABORATORY DATA: Noted. ASSESSMENT: This patient presents with anemia which is typical for renal failure. He also had a recent lower gastrointestinal bleeding from diverticulosis, which may have exacerbated his anemia. However, at this time, he is not showing any active evidence of bleeding and can be managed conservatively. His nausea has been going on for about a year and he has had extensive workup as an outpatient. The two remaining tests/ labs suggested to him would be to undergo another endoscopy since the last one was three years ago, which demonstrated there were no ulcers. In addition, he will be seen by surgeon to see if it will be worthwhile to pursue a cholecystectomy since his gallbladder ejection fraction was mildly abnormally low. RECOMMENDATIONS: Per above discussion and per orders written in the chart. Thank you for asking me to participate in the care of this patient. Saqib Hopkins M.D. DR: RENATO JOB#: [id number] CC: [id number]
[2020-08-21] VITALS: BP 158/70
[2020-08-21] MEDS: Zolpidem 5mg tab ORAL PRN ×2 (00:27→23:58)
[2020-08-21 04:00] VITALS: BP 170/65
[2020-08-21 05:02] LABS: HEMATOCRIT 25.4 % (42.0-52.0); HEMOGLOBIN 7.8 G/DL (14.2-18.0); MEAN CORPUSCULAR VOLUME 94 FL (80-99); PLATELET COUNT 153 K/UL (150-450); RED BLOOD COUNT 2.71 M/UL (4.70-6.10); RED CELL DISTRIBUTION WIDTH 14.8 % (11.6-14.8); WHITE BLOOD COUNT 4.8 K/UL (4.8-10.8)
[2020-08-21 05:39] LABS: CALCIUM 7.9 MG/DL (8.5-10.1); CREATININE 6.6 MG/DL (0.55-1.30)
[2020-08-21] MEDS: sitaGLIPtin 25mg tab ORAL SCH (05:53)
--- NOTE | 2020-08-21 06:34 | Hematology/Onc Progress Note ---
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, long standing, is on HD --> ferritin and occult blood ordered --> consider use of iron as needed based on above --> continue on EPOGEN --> renal eval as well --> no e/o hemolysis -> recent low GI bleeding , status post colonoscopy at [facility], per gi recs --> hgb 7.6 # Generalized weakness due to fatigue/pna --> Possible pneumonia --> abx per pulm CTX # Elevated troponin --> due to esrd, cards eval # Hyperkalemia --> kayxelate prn # Hypertension with initial hypertensive urgency # HL continue Plavix, statin # ESRD on hemodialysis -> HD # Diabetes mellitus # Dvt ppx scds Appreciate consultation and dw Rn Subjective Constitutional: Denies: no symptoms, chills, fever, malaise, weakness, other HEENT: Denies: no symptoms, eye pain, blurred vision, tearing, double vision, ear pain, ear discharge, nose pain, nose congestion, throat pain, throat swelling, mouth pain, mouth swelling, other Cardiovascular: Denies: no symptoms, chest pain, edema, irregular heart rate, lightheadedness, palpitations, syncope, other Gastrointestinal/Abdominal: Denies: no symptoms, abdomen distended, abdominal pain, black stools, tarry stools, blood in stool, constipated, diarrhea, difficulty swallowing, nausea, poor appetite, poor fluid intake, rectal bleeding, vomiting, other Genitourinary: Denies: no symptoms, burning, discharge, frequency, flank pain, hematuria, incontinence, pain, urgency, other Neurologic/Psychiatric: Denies: no symptoms, anxiety, depressed, emotional problems, headache, numbness, paresthesia, pre-existing deficit, seizure, tingling, tremors, weakness, other Endocrine: Denies: no symptoms, excessive sweating, flushing, intolerance to cold, intolerance to heat, increased hunger, increased thirst, increased urine, unexplained weight gain, unexplained weight loss, other Hematologic/Lymphatic: Denies: no symptoms, anemia, easy bleeding, easy bruising, adenopathy, other Allergies: Coded Allergies: No Known Allergies (Unverified , 06/09/15) Subjective 08/21 labs reviewed, hgb 7.6, occult pend, seen by gi Objective Objective Current Medications Medications (Trade) Dose Ordered Sig/Harriet Route PRN Reason Start Time Stop Time Status Last Admin Dose Admin Acetaminophen (Tylenol) 650 mg PRN PRN RECTAL TEMP>100.5 08/18/20 21:00 Acetaminophen (Tylenol) 650 mg Q6H PRN ORAL For Headache 08/19/20 01:30 09/18/20 01:29 08/19/20 23:08 Acetaminophen/ Codeine Phosphate (Tylenol #3) 1 tab Q4H PRN ORAL Pain Scale (6-10) 08/20/20 00:00 08/27/20 00:00 08/20/20 20:42 Albuterol/ Ipratropium (Albuterol/ Ipratropium) 3 ml Q4H PRN HHN sob 08/19/20 11:15 08/24/20 11:14 Amlodipine Besylate (Norvasc) 2.5 mg BID ORAL 08/19/20 17:00 09/19/20 08:59 08/20/20 18:36 Atorvastatin Calcium (Lipitor) 80 mg BEDTIME ORAL 08/19/20 21:00 11/17/20 20:59 08/20/20 20:15 Barium Sulfate (Varibar Honey) 250 ml NOW PRN MC RAD 08/19/20 12:45 08/22/20 12:43 Barium Sulfate (Varibar [place]) 240 ml NOW PRN MC RAD 08/19/20 12:45 08/22/20 12:43 Barium Sulfate (Varibar Pudding) 230 ml NOW PRN MC RAD 08/19/20 12:45 08/22/20 12:43 Barium Sulfate (Varibar Thin Liquid powder) 148 gm NOW PRN MC RAD 08/19/20 12:45 08/22/20 12:43 Carvedilol (Coreg) 25 mg EVERY 12 HOURS ORAL 08/19/20 09:00 09/18/20 08:59 08/20/20 20:40 Ceftriaxone Sodium 1 gm/ Dextrose 55 ml @ 110 mls/hr Q24H IVPB 08/19/20 21:00 08/26/20 20:59 08/20/20 20:21 Clonidine HCl (Catapres Tab) 0.1 mg Q6H PRN ORAL SBP > 160 08/19/20 11:15 1/22/21 11:14 08/21/20 04:49 Clopidogrel Bisulfate (Plavix) 75 mg DAILY ORAL 08/19/20 09:00 09/18/20 08:59 08/20/20 08:50 Docusate Sodium (Colace) 100 mg DAILY ORAL 08/19/20 09:00 09/18/20 08:59 08/20/20 08:51 Epoetin Bill (Epoetin Bill(ESRD on dialysis)) 10,000 unit FRI- SUBQ 08/21/20 21:00 11/19/20 20:59 Famotidine (Pepcid) 20 mg DAILY ORAL 08/20/20 09:00 11/18/20 08:59 08/20/20 08:51 Levetiracetam (Keppra) 500 mg Q12HR ORAL 08/19/20 09:00 10/03/20 08:59 08/20/20 20:16 Loratadine (Claritin 10mg) 10 mg DAILY ORAL 08/19/20 09:00 09/18/20 08:59 08/20/20 08:50 Montelukast Sodium (Singulair) 10 mg QPM ORAL 08/19/20 16:30 11/17/20 16:29 08/20/20 16:24 Ondansetron HCl (Zofran) 4 mg Q6H PRN IVP Nausea & Vomiting 08/19/20 10:00 09/18/20 09:59 Pantoprazole (Protonix) 40 mg EVERY 12 HOURS ORAL 08/19/20 09:00 09/18/20 08:59 08/20/20 20:16 Primidone (Mysoline) 50 mg BEDTIME ORAL 08/19/20 21:00 09/18/20 20:59 08/20/20 20:16 Sitagliptin Phosphate (Januvia) 25 mg ACBREAKFAST ORAL 08/20/20 06:30 09/19/20 06:29 08/21/20 05:53 Zolpidem Tartrate (Ambien) 5 mg HSPRN PRN ORAL Insomnia 08/20/20 21:00 08/27/20 20:59 08/21/20 00:27 Last 24 Hour Vital Signs Date Time Temp Pulse Resp B/P (MAP) Pulse Ox O2 Delivery O2 Flow Rate FiO2 08/21/20 04:49 170/76 08/21/20 04:00 97.7 68 20 170/65 (100) 98 08/21/20 00:00 62 08/21/20 00:00 98.1 67 18 158/70 (99) 95 08/20/20 21:00 Room Air 08/20/20 20:40 67 153/68 08/20/20 20:00 64 08/20/20 20:00 98.2 68 18 153/68 (96) 95 08/20/20 18:36 63 144/67 08/20/20 16:00 63 08/20/20 16:00 98.6 60 18 144/67 (92) 95 08/20/20 12:58 162/56 08/20/20 12:00 67 08/20/20 12:00 97.5 66 20 162/56 (91) 94 08/20/20 09:00 Room Air 08/20/20 08:51 70 163/61 08/20/20 08:50 70 163/61 08/20/20 08:00 64 08/20/20 08:00 98.2 70 20 163/61 (95) 97 08/20/20 04:00 96.9 68 18 156/86 (109) 99 08/20/20 04:00 67 08/20/20 00:39 97.7 08/20/20 00:00 98.1 70 18 162/82 (108) 96 08/20/20 00:00 77 08/19/20 22:21 72 08/19/20 21:00 Room Air 08/19/20 21:00 62 148/82 08/19/20 20:00 64 08/19/20 20:00 97.7 68 18 168/78 (108) 98 08/19/20 17:00 62 168/74 08/19/20 16:00 97.7 62 20 168/74 (105) 96 08/19/20 16:00 52 08/19/20 12:28 97.5 08/19/20 12:00 97.7 57 20 163/64 (97) 98 08/19/20 12:00 54 08/19/20 11:15 65 164/71 08/19/20 09:15 65 164/71 08/19/20 09:00 Room Air 08/19/20 08:00 97.5 65 20 164/71 (102) 95 08/19/20 08:00 62 Intake and Output 08/20/20 08/21/20 19:00 07:00 Intake Total 420 ml Balance 420 ml Intake Oral 420 ml # Voids 1 # Bowel Movements 1 Labs Test 08/18/20 20:00 08/18/20 20:15 08/19/20 09:25 08/19/20 17:00 White Blood Count 5.7 K/UL (4.8-10.8) 5.1 K/UL (4.8-10.8) Red Blood Count 2.85 M/UL (4.70-6.10) 2.72 M/UL (4.70-6.10) Hemoglobin 8.5 G/DL (14.2-18.0) 7.8 G/DL (14.2-18.0) Hematocrit 27.1 % (42.0-52.0) 25.6 % (42.0-52.0) Mean Corpuscular Volume 95 FL (80-99) 94 FL (80-99) Mean Corpuscular Hemoglobin 29.8 PG (27.0-31.0) 28.6 PG (27.0-31.0) Mean Corpuscular Hemoglobin Concent 31.2 G/DL (32.0-36.0) 30.4 G/DL (32.0-36.0) Red Cell Distribution Width 15.5 % (11.6-14.8) 15.0 % (11.6-14.8) Platelet Count 167 K/UL (150-450) 171 K/UL (150-450) Mean Platelet Volume 6.5 FL (6.5-10.1) 6.4 FL (6.5-10.1) Neutrophils (%) (Auto) 41.7 % (45.0-75.0) % (45.0-75.0) Lymphocytes (%) (Auto) 36.9 % (20.0-45.0) % (20.0-45.0) Monocytes (%) (Auto) 14.7 % (1.0-10.0) % (1.0-10.0) Eosinophils (%) (Auto) 5.2 % (0.0-3.0) % (0.0-3.0) Basophils (%) (Auto) 1.5 % (0.0-2.0) % (0.0-2.0) Prothrombin Time 12.5 SEC (9.30-11.50) Prothromb Time International Ratio 1.1 (0.9-1.1) Activated Partial Thromboplast Time 35 SEC (23-33) Sodium Level 134 MMOL/L (136-145) 135 MMOL/L (136-145) Potassium Level 5.5 MMOL/L (3.5-5.1) 5.0 MMOL/L (3.5-5.1) Chloride Level 100 MMOL/L (98-107) 101 MMOL/L (98-107) Carbon Dioxide Level 28 MMOL/L (21-32) 27 MMOL/L (21-32) Anion Gap 6 mmol/L (5-15) 7 mmol/L (5-15) Blood Urea Nitrogen 48 mg/dL (7-18) 55 mg/dL (7-18) Creatinine 6.4 MG/DL (0.55-1.30) 6.8 MG/DL (0.55-1.30) Estimat Glomerular Filtration Rate 8.5 mL/min (>60) 7.9 mL/min (>60) Glucose Level 121 MG/DL (74-106) 116 MG/DL (74-106) Calcium Level 8.4 MG/DL (8.5-10.1) 8.0 MG/DL (8.5-10.1) Total Bilirubin 0.3 MG/DL (0.2-1.0) Aspartate Amino Transf (AST/SGOT) 44 U/L (15-37) Alanine Aminotransferase (ALT/SGPT) 19 U/L (12-78) Alkaline Phosphatase 105 U/L (46-116) Troponin I 0.181 ng/mL (0.000-0.056) 0.164 ng/mL (0.000-0.056) 0.156 ng/mL (0.000-0.056) Total Protein 6.5 G/DL (6.4-8.2) Albumin 1.8 G/DL (3.4-5.0) Globulin 4.7 g/dL Albumin/Globulin Ratio 0.4 (1.0-2.7) Lactic Acid Level 1.00 mmol/L (0.4-2.0) Differential Total Cells Counted 100 Neutrophils % (Manual) 46 % (45-75) Lymphocytes % (Manual) 37 % (20-45) Monocytes % (Manual) 12 % (1-10) Eosinophils % (Manual) 4 % (0-3) Basophils % (Manual) 1 % (0-2) Band Neutrophils 0 % (0-8) Platelet Estimate Adequate Platelet Morphology Normal Polychromasia 1+ Hypochromasia 1+ Anisocytosis 1+ Calcium (Send out) 7.9 mg/dL (8.6-10.2) Phosphorus Level 4.1 MG/DL (2.5-4.9) Iron Level 46 ug/dL (50-175) Total Iron Binding Capacity 127 ug/dL (250-450) Percent Iron Saturation 36 % (15-50) Unsaturated Iron Binding 81 ug/dL (112-346) PTH (Intact) Whole Molecule Comment (.) Parathyroid Hormone (Intact) 140 pg/mL (15-65) Test 08/20/20 00:54 08/20/20 04:20 08/20/20 09:15 08/20/20 17:15 Troponin I 0.168 ng/mL (0.000-0.056) 0.181 ng/mL (0.000-0.056) 0.190 ng/mL (0.000-0.056) White Blood Count 5.4 K/UL (4.8-10.8) Red Blood Count 2.64 M/UL (4.70-6.10) Hemoglobin 7.5 G/DL (14.2-18.0) Hematocrit 24.7 % (42.0-52.0) Mean Corpuscular Volume 94 FL (80-99) Mean Corpuscular Hemoglobin 28.6 PG (27.0-31.0) Mean Corpuscular Hemoglobin Concent 30.5 G/DL (32.0-36.0) Red Cell Distribution Width 14.9 % (11.6-14.8) Platelet Count 154 K/UL (150-450) Mean Platelet Volume 6.2 FL (6.5-10.1) Neutrophils (%) (Auto) % (45.0-75.0) Lymphocytes (%) (Auto) % (20.0-45.0) Monocytes (%) (Auto) % (1.0-10.0) Eosinophils (%) (Auto) % (0.0-3.0) Basophils (%) (Auto) % (0.0-2.0) Differential Total Cells Counted 100 Neutrophils % (Manual) 49 % (45-75) Lymphocytes % (Manual) 34 % (20-45) Monocytes % (Manual) 9 % (1-10) Eosinophils % (Manual) 7 % (0-3) Basophils % (Manual) 1 % (0-2) Band Neutrophils 0 % (0-8) Platelet Estimate Adequate Platelet Morphology Normal Hypochromasia 1+ Anisocytosis 1+ Sodium Level 137 MMOL/L (136-145) Potassium Level 4.5 MMOL/L (3.5-5.1) Chloride Level 100 MMOL/L (98-107) Carbon Dioxide Level 29 MMOL/L (21-32) Anion Gap 8 mmol/L (5-15) Blood Urea Nitrogen 38 mg/dL (7-18) Creatinine 5.2 MG/DL (0.55-1.30) Estimat Glomerular Filtration Rate 10.8 mL/min (>60) Glucose Level 165 MG/DL (74-106) Calcium Level 8.0 MG/DL (8.5-10.1) Ferritin 1082 NG/ML (8-388) Test 08/21/20 01:06 08/21/20 04:20 Troponin I 0.188 ng/mL (0.000-0.056) White Blood Count 4.8 K/UL (4.8-10.8) Red Blood Count 2.71 M/UL (4.70-6.10) Hemoglobin 7.8 G/DL (14.2-18.0) Hematocrit 25.4 % (42.0-52.0) Mean Corpuscular Volume 94 FL (80-99) Mean Corpuscular Hemoglobin 28.7 PG (27.0-31.0) Mean Corpuscular Hemoglobin Concent 30.7 G/DL (32.0-36.0) Red Cell Distribution Width 14.8 % (11.6-14.8) Platelet Count 153 K/UL (150-450) Mean Platelet Volume 6.5 FL (6.5-10.1) Neutrophils (%) (Auto) % (45.0-75.0) Lymphocytes (%) (Auto) % (20.0-45.0) Monocytes (%) (Auto) % (1.0-10.0) Eosinophils (%) (Auto) % (0.0-3.0) Basophils (%) (Auto) % (0.0-2.0) Sodium Level 139 MMOL/L (136-145) Potassium Level 5.0 MMOL/L (3.5-5.1) Chloride Level 101 MMOL/L (98-107) Carbon Dioxide Level 28 MMOL/L (21-32) Anion Gap 10 mmol/L (5-15) Blood Urea Nitrogen 51 mg/dL (7-18) Creatinine 6.6 MG/DL (0.55-1.30) Estimat Glomerular Filtration Rate 8.2 mL/min (>60) Glucose Level 84 MG/DL (74-106) Calcium Level 7.9 MG/DL (8.5-10.1) Height (Feet): 5 Height (Inches): 10.00 Weight (Pounds): 166 Objective Physical Exam General Appearance: no apparent distress, other - bedridden Lines, tubes and drains: peripheral HEENT: normocephalic, atraumatic, anicteric, mucous membranes moist Neck: non-tender, supple Respiratory/Chest: lungs clear - with decreased BS , no accessory muscle use Cardiovascular/Chest: normal rate, regular rhythm - SR on tele Abdomen: normal bowel sounds, non tender, soft Extremities: normal capillary refill, + LUE AV shunt + bruit/thrill Skin Exam: warm/dry Neurologic: abnormal gait, alert, responsive Musculoskeletal: atrophy - BLE Nimesh New MD Aug 21, 2020 06:34
[2020-08-21] MEDS ORDERED: Minoxidil 2.5mg tab ORAL SCH ×2 (07:45→09:00)
[2020-08-21 08:00] VITALS: BP 168/70
[2020-08-21] MEDS: Docusate 100mg cap ORAL SCH (08:29)
--- NOTE | 2020-08-21 09:22 | General Progress Note ---
Subjective Date patient seen: Aug 21, 2020 Time patient seen: 08:45 Constitutional: Reports: weakness HEENT: Reports: no symptoms Cardiovascular: Reports: no symptoms Respiratory: Reports: no symptoms Gastrointestinal/Abdominal: Reports: no symptoms Genitourinary: Reports: no symptoms Neurologic/Psychiatric: Reports: no symptoms Endocrine: Reports: no symptoms Hematologic/Lymphatic: Reports: anemia Allergies: Coded Allergies: No Known Allergies (Unverified , 06/09/15) Subjective Patient was seen and examined. He is afebrile. no sob or chest pain but he was started on O2 nasal canula due to o2 sat dropping to 89 % overnight. his H/H has been stable. Objective Last 24 Hour Vital Signs Date Time Temp Pulse Resp B/P (MAP) Pulse Ox O2 Delivery O2 Flow Rate FiO2 08/21/20 08:28 168/70 08/21/20 04:49 170/76 08/21/20 04:00 97.7 68 20 170/65 (100) 98 08/21/20 04:00 64 08/21/20 00:00 62 08/21/20 00:00 98.1 67 18 158/70 (99) 95 08/20/20 21:00 Room Air 08/20/20 20:40 67 153/68 08/20/20 20:00 64 08/20/20 20:00 98.2 68 18 153/68 (96) 95 08/20/20 18:36 63 144/67 08/20/20 16:00 63 08/20/20 16:00 98.6 60 18 144/67 (92) 95 08/20/20 12:58 162/56 08/20/20 12:00 67 08/20/20 12:00 97.5 66 20 162/56 (91) 94 Intake and Output 08/20/20 08/21/20 19:00 07:00 Intake Total 420 ml Balance 420 ml Intake Oral 420 ml # Voids 1 # Bowel Movements 1 Laboratory Tests 08/20/20 09:15: Ferritin 1082H, Troponin I 0.181H 08/20/20 17:15: Troponin I 0.190H 08/21/20 01:06: Troponin I 0.188H 08/21/20 04:20: White Blood Count 4.8, Red Blood Count 2.71L, Hemoglobin 7.8L, Hematocrit 25.4L, Mean Corpuscular Volume 94, Mean Corpuscular Hemoglobin 28.7, Mean Corpuscular Hemoglobin Concent 30.7L, Red Cell Distribution Width 14.8, Platelet Count 153, Mean Platelet Volume 6.5, Neutrophils (%) (Auto) , Lymphocytes (%) (Auto) , Monocytes (%) (Auto) , Eosinophils (%) (Auto) , Basophils (%) (Auto) , Sodium Level 139, Potassium Level 5.0, Chloride Level 101, Carbon Dioxide Level 28, Anion Gap 10, Blood Urea Nitrogen 51H, Creatinine 6.6H, Estimat Glomerular Filtration Rate 8.2, Glucose Level 84, Calcium Level 7.9L Height (Feet): 5 Height (Inches): 10.00 Weight (Pounds): 166 General Appearance: no apparent distress, alert EENT: normal ENT inspection Neck: non-tender, supple Cardiovascular: normal rate, regular rhythm Respiratory/Chest: lungs clear, normal breath sounds Abdomen: non tender, soft Extremities: non-tender Neurologic: alert, responsive Skin: warm/dry Assessment/Plan Status: stable, unchanged Assessment/Plan: 1. Hyperkalemia - resolved. 2. ESRD on HD - on HD 3x/wk. 3. Anemia - most likely 2nd to Anemia of chronic disease due to ESRD - he had colonoscopy at [facility] showed Diverticulosis. 4. H/o Lower GI bleeding s/p Colonoscopy at [facility] due to bleeding diverticulosis. 5. HTN - cont coreg 25 mg bid and start minoxidil 2.5 mg po bid. on norvasc 2.5 mg bid. may need to change back to entresto for his heart failure. 6. 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 7. h/o lower GI bleed at [facility] per patient - will have GI see the patient. 8. Elevated Troponin - most likely 2nd to ERSD. Cardiology eval. 9. 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 10. Systolic CHF - may need to restart his Entresto. cardiology will follow. Isela Jordan MD Aug 21, 2020 09:22
--- NOTE | 2020-08-21 09:53 | General Progress Note ---
Subjective ROS Limited/Unobtainable: Yes Allergies: Coded Allergies: No Known Allergies (Unverified , 06/09/15) Objective Last 24 Hour Vital Signs Date Time Temp Pulse Resp B/P (MAP) Pulse Ox O2 Delivery O2 Flow Rate FiO2 08/21/20 09:09 54 168/70 08/21/20 09:00 168/70 08/21/20 08:28 168/70 08/21/20 04:49 170/76 08/21/20 04:00 97.7 68 20 170/65 (100) 98 08/21/20 04:00 64 08/21/20 00:00 62 08/21/20 00:00 98.1 67 18 158/70 (99) 95 08/20/20 21:00 Room Air 08/20/20 20:40 67 153/68 08/20/20 20:00 64 08/20/20 20:00 98.2 68 18 153/68 (96) 95 08/20/20 18:36 63 144/67 08/20/20 16:00 63 08/20/20 16:00 98.6 60 18 144/67 (92) 95 08/20/20 12:58 162/56 08/20/20 12:00 67 08/20/20 12:00 97.5 66 20 162/56 (91) 94 Intake and Output 08/20/20 08/21/20 19:00 07:00 Intake Total 420 ml Balance 420 ml Intake Oral 420 ml # Voids 1 # Bowel Movements 1 Laboratory Tests 08/20/20 17:15: Troponin I 0.190H 08/21/20 01:06: Troponin I 0.188H 08/21/20 04:20: White Blood Count 4.8, Red Blood Count 2.71L, Hemoglobin 7.8L, Hematocrit 25.4L, Mean Corpuscular Volume 94, Mean Corpuscular Hemoglobin 28.7, Mean Corpuscular Hemoglobin Concent 30.7L, Red Cell Distribution Width 14.8, Platelet Count 153, Mean Platelet Volume 6.5, Neutrophils (%) (Auto) , Lymphocytes (%) (Auto) , Monocytes (%) (Auto) , Eosinophils (%) (Auto) , Basophils (%) (Auto) , Sodium Level 139, Potassium Level 5.0, Chloride Level 101, Carbon Dioxide Level 28, Anion Gap 10, Blood Urea Nitrogen 51H, Creatinine 6.6H, Estimat Glomerular Filtration Rate 8.2, Glucose Level 84, Calcium Level 7.9L 08/21/20 09:00: Troponin I 0.184H Height (Feet): 5 Height (Inches): 10.00 Weight (Pounds): 166 General Appearance: alert EENT: normal ENT inspection Neck: supple Cardiovascular: normal rate Respiratory/Chest: decreased breath sounds Abdomen: normal bowel sounds, non tender, soft Extremities: non-tender Assessment/Plan Status: stable, unchanged Assessment/Plan: Assessment Chronic Nausea, W/u to date: 12/04/16 - EGD - DU x 4 HH x 3 cm path (-) for HP 06/04/19 - abd u/s - small gallbladder sludge 06/05/19 - HIDA Scan-- normal, no CCK given 10/09/19 - abd/pelvis CT - possible PSBO , ventral hernia and tics 10/15/19 - upper GI with SBFT - small HH, non-obstructing Schatzki's ring, mildly distended small bowel loops 12/02/19 - gastric emptying study normal 05/22/20 - HIDA SCAN with CCK mildly abnormal (EF 32%, normal >35%) 07/24/20 - Colonoscopy --> diminutive polyps and diverticulosis ESRD/HD DM h/o anemia h/o syncope CAD/WV PTCA/Stent 04/2015 HTN Hypercholesterolemia AAA GERD Gout h/o PUD/DU h/o a fib add miralax and lactulose fu stool ob cbc in am change ppi to daily EGD if stool ob positive consider adding Marinol patient on Plavix Daniel Irving MD Aug 21, 2020 09:53
--- NOTE | 2020-08-21 10:31 | Cardiac Electrophysiology PN ---
Assessment/Plan Assessment/Plan 1. Elevated troponin of 0.181, 0.164, 0.16, 0.16 and 0.18. in a patient with history of CABG at [facility] >20 years ago. Likely due to renal failure. Out side Front Desk Clerk is Dr Loco. The patient does not have any chest pain. EKG does not show any acute ischemic changes but has underlying right bundle-branch block. Echocardiogram showed EF 45%. Continue Lipitor 80 mg at bedtime and Plavix 75 mg daily and Coreg 25 mg b.i.d. 2. Accelerated hypertension, on Coreg 25 mg bid and p.r.n. clonidine. Start Enresto 49/51 bid. DC Amlodipine and Minoxidil 3. Frequent PVCs on 12 lead ECG today. EF 45%. Has old TX. No syncope. Continue Coreg 4. CMP EF 45%. On Coreg, Entresto and HD 5. End-stage renal disease, on hemodialysis. 6. Anemia, likely due to renal failure. 7. History of lower GI bleed, status post colonoscopy at [facility]. Follow up with Dr. Irving. 8. History of seizure disorder. 9. History of CVA. RAMIRO RN and Dr Jordan Subjective Subjective Has Bigeminal PVCs. No CP or SOB. In sinus bubba in 50s.Lowest 47 Objective Last 24 Hour Vital Signs Date Time Temp Pulse Resp B/P (MAP) Pulse Ox O2 Delivery O2 Flow Rate FiO2 08/21/20 09:09 54 168/70 08/21/20 09:00 168/70 08/21/20 08:28 168/70 08/21/20 04:49 170/76 08/21/20 04:00 97.7 68 20 170/65 (100) 98 08/21/20 04:00 64 08/21/20 00:00 62 08/21/20 00:00 98.1 67 18 158/70 (99) 95 08/20/20 21:00 Room Air 08/20/20 20:40 67 153/68 08/20/20 20:00 64 08/20/20 20:00 98.2 68 18 153/68 (96) 95 08/20/20 18:36 63 144/67 08/20/20 16:00 63 08/20/20 16:00 98.6 60 18 144/67 (92) 95 08/20/20 12:58 162/56 08/20/20 12:00 67 08/20/20 12:00 97.5 66 20 162/56 (91) 94 Intake and Output 08/20/20 08/21/20 19:00 07:00 Intake Total 420 ml Balance 420 ml Intake Oral 420 ml # Voids 1 # Bowel Movements 1 Laboratory Tests Test 08/20/20 17:15 08/21/20 01:06 08/21/20 04:20 08/21/20 09:00 Troponin I 0.190 ng/mL (0.000-0.056) 0.188 ng/mL (0.000-0.056) 0.184 ng/mL (0.000-0.056) White Blood Count 4.8 K/UL (4.8-10.8) Red Blood Count 2.71 M/UL (4.70-6.10) L Hemoglobin 7.8 G/DL (14.2-18.0) L Hematocrit 25.4 % (42.0-52.0) L Mean Corpuscular Volume 94 FL (80-99) Mean Corpuscular Hemoglobin 28.7 PG (27.0-31.0) Mean Corpuscular Hemoglobin Concent 30.7 G/DL (32.0-36.0) L Red Cell Distribution Width 14.8 % (11.6-14.8) Platelet Count 153 K/UL (150-450) Mean Platelet Volume 6.5 FL (6.5-10.1) Neutrophils (%) (Auto) % (45.0-75.0) Lymphocytes (%) (Auto) % (20.0-45.0) Monocytes (%) (Auto) % (1.0-10.0) Eosinophils (%) (Auto) % (0.0-3.0) Basophils (%) (Auto) % (0.0-2.0) Sodium Level 139 MMOL/L (136-145) Potassium Level 5.0 MMOL/L (3.5-5.1) Chloride Level 101 MMOL/L (98-107) Carbon Dioxide Level 28 MMOL/L (21-32) Anion Gap 10 mmol/L (5-15) Blood Urea Nitrogen 51 mg/dL (7-18) H Creatinine 6.6 MG/DL (0.55-1.30) H Estimat Glomerular Filtration Rate 8.2 mL/min (>60) Glucose Level 84 MG/DL (74-106) Calcium Level 7.9 MG/DL (8.5-10.1) L Microbiology Date/Time Source Procedure Growth Status 08/18/20 20:25 Blood Blood Culture - Preliminary NO GROWTH AFTER 24 HOURS Resulted 08/18/20 20:10 Blood Blood Culture - Preliminary NO GROWTH AFTER 24 HOURS Resulted 08/18/20 20:00 Nasopharynx SARS-CoV-2 RdRp Gene Assay - Final Complete Objective NECK: No JVD. LUNGS: Clear. CARDIOVASCULAR: Regular S1 and S2 with no gallop or murmur. ABDOMEN: Soft. EXTREMITIES: No pitting edema. He has dialysis access in the left upper extremity AV shunt that has a bruit and a thrill. Derek Shah MD Aug 21, 2020 10:31
[2020-08-21] MEDS: Carvedilol 25mg Tab ORAL SCH ×2 (10:53→21:06)
--- NOTE | 2020-08-21 11:07 | Nephrology Progress Note ---
Assessment/Plan Assessment 1. End-stage renal disease. 2. Anemia of chronic kidney disease. 3. Renal osteodystrophy. 4. Hypertension. Plan dialysis as schedule continue epogen nutritional support monitoring phos and PTH Subjective ROS Limited/Unobtainable: Yes Subjective c/o fatigue has poor apatite Objective Objective Last 24 Hour Vital Signs Date Time Temp Pulse Resp B/P (MAP) Pulse Ox O2 Delivery O2 Flow Rate FiO2 08/21/20 10:53 62 127/47 08/21/20 09:09 54 168/70 08/21/20 09:00 168/70 08/21/20 08:28 168/70 08/21/20 04:49 170/76 08/21/20 04:00 97.7 68 20 170/65 (100) 98 08/21/20 04:00 64 08/21/20 00:00 62 08/21/20 00:00 98.1 67 18 158/70 (99) 95 08/20/20 21:00 Room Air 08/20/20 20:40 67 153/68 08/20/20 20:00 64 08/20/20 20:00 98.2 68 18 153/68 (96) 95 08/20/20 18:36 63 144/67 08/20/20 16:00 63 08/20/20 16:00 98.6 60 18 144/67 (92) 95 08/20/20 12:58 162/56 08/20/20 12:00 67 08/20/20 12:00 97.5 66 20 162/56 (91) 94 Intake and Output 08/20/20 08/21/20 19:00 07:00 Intake Total 420 ml Balance 420 ml Intake Oral 420 ml # Voids 1 # Bowel Movements 1 Laboratory Tests 08/20/20 17:15: Troponin I 0.190H 08/21/20 01:06: Troponin I 0.188H 08/21/20 04:20: White Blood Count 4.8, Red Blood Count 2.71L, Hemoglobin 7.8L, Hematocrit 25.4L, Mean Corpuscular Volume 94, Mean Corpuscular Hemoglobin 28.7, Mean Corpuscular Hemoglobin Concent 30.7L, Red Cell Distribution Width 14.8, Platelet Count 153, Mean Platelet Volume 6.5, Neutrophils (%) (Auto) , Lymphocytes (%) (Auto) , Monocytes (%) (Auto) , Eosinophils (%) (Auto) , Basophils (%) (Auto) , Sodium L evel 139, Potassium Level 5.0, Chloride Level 101, Carbon Dioxide Level 28, Anion Gap 10, Blood Urea Nitrogen 51H, Creatinine 6.6H, Estimat Glomerular Filtration Rate 8.2, Glucose Level 84, Calcium Level 7.9L 08/21/20 09:00: Troponin I 0.184H Height (Feet): 5 Height (Inches): 10.00 Weight (Pounds): 166 Objective GENERAL APPEARANCE: He is alert and oriented x3. No acute distress. HEENT: Normocephalic, normochromic. Extraocular muscles intact. Throat is clear. NECK: Supple. No lymphadenopathy. LUNGS: Clear to auscultation bilaterally. No wheezing, no rales CARDIOVASCULAR: Regular rate and rhythm. No murmur. No gallop. ABDOMEN: Soft, nontender, nondistended. Positive bowel sounds. No guarding. EXTREMITIES: Trace edema bilaterally. No cyanosis or clubbing. NEUROLOGIC: Alert and oriented x3. Responds to commands. SKIN: No rash. Ary Locke MD Aug 21, 2020 11:07
[2020-08-21] MEDS ORDERED: Enalaprilat 2.5mg/2ml Inj IV PRN (11:15)
[2020-08-21 12:00] VITALS: BP 126/44
--- NOTE | 2020-08-21 13:00 | Pulmonology Progress Note ---
Subjective ROS Limited/Unobtainable: No Constitutional: Reports: no symptoms HEENT: Repors: no symptoms Respiratory: Reports: no symptoms Allergies: Coded Allergies: No Known Allergies (Unverified , 06/09/15) All Systems: reviewed and negative except above Objective Last 24 Hour Vital Signs Date Time Temp Pulse Resp B/P (MAP) Pulse Ox O2 Delivery O2 Flow Rate FiO2 08/21/20 12:00 58 08/21/20 12:00 97.9 57 20 126/44 (71) 97 08/21/20 10:53 62 127/47 08/21/20 09:09 54 168/70 08/21/20 09:00 168/70 08/21/20 08:28 168/70 08/21/20 08:00 62 08/21/20 08:00 97.7 57 20 168/70 (102) 99 08/21/20 04:49 170/76 08/21/20 04:00 97.7 68 20 170/65 (100) 98 08/21/20 04:00 64 08/21/20 00:00 62 08/21/20 00:00 98.1 67 18 158/70 (99) 95 08/20/20 21:00 Room Air 08/20/20 20:40 67 153/68 08/20/20 20:00 64 08/20/20 20:00 98.2 68 18 153/68 (96) 95 08/20/20 18:36 63 144/67 08/20/20 16:00 63 08/20/20 16:00 98.6 60 18 144/67 (92) 95 Intake and Output 08/20/20 08/21/20 19:00 07:00 Intake Total 420 ml Balance 420 ml Intake Oral 420 ml # Voids 1 # Bowel Movements 1 General Appearance: WD/WN HEENT: normocephalic, atraumatic Respiratory: chest wall non-tender, lungs clear, normal breath sounds Cardiovascular: normal rate, regular rhythm, no gallop/murmur Abdomen: normal bowel sounds, soft, non tender, no organomegaly, non distended Extremities: no cyanosis Skin: no rash 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 Complete 08/18/20 20:00 Nasopharynx SARS-CoV-2 RdRp Gene Assay - Final Complete Laboratory Tests 08/20/20 17:15: Troponin I 0.190H 08/21/20 01:06: Troponin I 0.188H 08/21/20 04:20: White Blood Count 4.8, Red Blood Count 2.71L, Hemoglobin 7.8L, Hematocrit 25.4L, Mean Corpuscular Volume 94, Mean Corpuscular Hemoglobin 28.7, Mean Corpuscular Hemoglobin Concent 30.7L, Red Cell Distribution Width 14.8, Platelet Count 153, Mean Platelet Volume 6.5, Neutrophils (%) (Auto) , Lymphocytes (%) (Auto) , Monocytes (%) (Auto) , Eosinophils (%) (Auto) , Basophils (%) (Auto) , Sodium Level 139, Potassium Level 5.0, Chloride Level 101, Carbon Dioxide Level 28, Anion Gap 10, Blood Urea Nitrogen 51H, Creatinine 6.6H, Estimat Glomerular Filtration Rate 8.2, Glucose Level 84, Calcium Level 7.9L 08/21/20 09:00: Troponin I 0.184H Current Medications Medications (Trade) Dose Ordered Sig/Harrite Route PRN Reason Start Time Stop Time Status Last Admin Dose Admin Acetaminophen (Tylenol) 650 mg Q6H PRN ORAL For Headache 08/19/20 01:30 09/18/20 01:29 08/19/20 23:08 Acetaminophen/ Codeine Phosphate (Tylenol #3) 1 tab Q4H PRN ORAL Pain Scale (6-10) 08/20/20 00:00 08/27/20 00:00 08/20/20 20:42 Albuterol/ Ipratropium (Albuterol/ Ipratropium) 3 ml Q4H PRN HHN sob 08/19/20 11:15 08/24/20 11:14 Atorvastatin Calcium (Lipitor) 80 mg BEDTIME ORAL 08/19/20 21:00 11/17/20 20:59 08/20/20 20:15 Barium Sulfate (Varibar Honey) 250 ml NOW PRN RAD 08/19/20 12:45 08/22/20 12:43 Barium Sulfate (Varibar [place]) 240 ml NOW PRN RAD 08/19/20 12:45 08/22/20 12:43 Barium Sulfate (Varibar Pudding) 230 ml NOW PRN RAD 08/19/20 12:45 08/22/20 12:43 Barium Sulfate (Varibar Thin Liquid powder) 148 gm NOW PRN RAD 08/19/20 12:45 08/22/20 12:43 Carvedilol (Coreg) 25 mg EVERY 12 HOURS ORAL 08/19/20 09:00 09/18/20 08:59 08/21/20 10:53 Ceftriaxone Sodium 1 gm/ Dextrose 55 ml @ 110 mls/hr Q24H IVPB 08/19/20 21:00 08/26/20 20:59 08/20/20 20:21 Clonidine HCl (Catapres Tab) 0.1 mg Q3H PRN ORAL SBP > 170 AND HR >55 08/21/20 10:45 11/19/20 10:44 Clopidogrel Bisulfate (Plavix) 75 mg DAILY ORAL 08/19/20 09:00 09/18/20 08:59 08/21/20 08:30 Docusate Sodium (Colace) 100 mg DAILY ORAL 08/19/20 09:00 09/18/20 08:59 08/21/20 08:29 Enalaprilat (Vasotec) 1.25 mg Q4H PRN IV FOR SBP >170 HR <55 08/21/20 11:15 09/20/20 11:14 Epoetin Bill (Epoetin Bill(ESRD on dialysis)) 10,000 unit FRI-FRI-FRI SUBQ 08/21/20 21:00 11/19/20 20:59 Lactulose (Cephulac) 20 gm BID ORAL 08/21/20 18:00 09/20/20 17:59 Levetiracetam (Keppra) 500 mg Q12HR ORAL 08/19/20 09:00 10/03/20 08:59 08/21/20 08:30 Loratadine (Claritin 10mg) 10 mg DAILY ORAL 08/19/20 09:00 09/18/20 08:59 08/21/20 08:30 Montelukast Sodium (Singulair) 10 mg QPM ORAL 08/19/20 16:30 11/17/20 16:29 08/20/20 16:24 Ondansetron HCl (Zofran) 4 mg Q6H PRN IVP Nausea & Vomiting 08/19/20 10:00 09/18/20 09:59 Pantoprazole (Protonix) 40 mg DAILY ORAL 08/22/20 09:00 09/21/20 08:59 Polyethylene Glycol (Miralax) 17 gm BEDTIME ORAL 08/21/20 21:00 09/20/20 20:59 Primidone (Mysoline) 50 mg BEDTIME ORAL 08/19/20 21:00 09/18/20 20:59 08/20/20 20:16 Sacubitril/ Valsartan (Entresto 49mg/ 51mg) 1 tab Q12HR ORAL 08/21/20 12:00 11/19/20 11:59 Sitagliptin Phosphate (Januvia) 25 mg ACBREAKFAST ORAL 08/20/20 06:30 09/19/20 06:29 08/21/20 05:53 Zolpidem Tartrate (Ambien) 5 mg HSPRN PRN ORAL Insomnia 08/20/20 21:00 08/27/20 20:59 08/21/20 00:27 Assessment/Plan Problems: (1) Anemia (2) Nosocomial pneumonia (3) Pulmonary edema (4) ESRD (end stage renal disease) (5) CVA (cerebral vascular accident) Assessment/Plan VRE rectum Positive Sputum cultures pending BC are negative WBC wnl the findings on CXR could be just fluid and edema prbc prn symptomatic treatment anemia w/u HD by nephrology Robbie Lee MD Aug 21, 2020 13:00
--- NOTE | 2020-08-21 13:06 | Diagnostic Imaging Report ---
Indication: Shortness of breath Technique: One view of the chest Comparison: 08/18/2020 Findings: Patient is rotated to the right. Hazy right lung opacity likely represents combination of pleural fluid and consolidation. There is also some atelectasis in the right perihilar region. Allowing for technical differences, findings are probably unchanged. Questionable very slight hazy opacity on the left probably not significant change. The heart is enlarged. There are median sternotomy sutures. Impression: Unchanged, over 3 days, findings as above.
[2020-08-21 16:00] VITALS: BP 166/65
[2020-08-21] MEDS: Lactulose 20gm/30ml UDC ORAL SCH (17:06)
[2020-08-21] MEDS: Montelukast 10mg tablet ORAL SCH (17:07)
[2020-08-21] MEDS: Tylenol #3 tab (300mg/30mg) ORAL PRN ×2 (17:07→21:18)
[2020-08-21 20:00] VITALS: BP 147/61
[2020-08-21] MEDS: Atorvastatin 80mg tab ORAL SCH (21:06)
[2020-08-21] MEDS: Epoetin Alfa-EPBX(ESRD on dialysis)10,000 unit/ml vial SUBQ SCH (21:06)
[2020-08-21] MEDS: cefTRIAXone 1 GM in D5W 55 ML IVPB SCH (21:07)
[2020-08-21] MEDS: Miralax 17gm pkt ORAL SCH (21:18)
[2020-08-22] VITALS (7 sets, daily range): BP systolic 114–177; BP diastolic 55–72
[2020-08-22] MEDS: Tylenol #3 tab (300mg/30mg) ORAL PRN (02:58)
[2020-08-22 05:22] LABS: HEMOGLOBIN 7.8 G/DL (14.2-18.0); MEAN CORPUSCULAR VOLUME 92 FL (80-99); PLATELET COUNT 143 K/UL (150-450); RED BLOOD COUNT 2.73 M/UL (4.70-6.10); RED CELL DISTRIBUTION WIDTH 14.6 % (11.6-14.8); WHITE BLOOD COUNT 5.7 K/UL (4.8-10.8)
[2020-08-22 05:43] LABS: ALBUMIN 1.7 G/DL (3.4-5.0); ALBUMIN/GLOBULIN RATIO 0.4 (1.0-2.7); BILIRUBIN,TOTAL 0.2 MG/DL (0.2-1.0); CALCIUM 8.2 MG/DL (8.5-10.1); CREATININE 4.8 MG/DL (0.55-1.30)
--- NOTE | 2020-08-22 06:26 | General Progress Note ---
Subjective ROS Limited/Unobtainable: Yes Allergies: Coded Allergies: No Known Allergies (Unverified , 06/09/15) Objective Last 24 Hour Vital Signs Date Time Temp Pulse Resp B/P (MAP) Pulse Ox O2 Delivery O2 Flow Rate FiO2 08/22/20 04:00 99.0 54 24 133/55 (81) 93 08/22/20 04:00 63 08/22/20 03:38 97.1 08/22/20 00:00 97.0 67 24 147/61 (89) 93 08/21/20 21:48 97.1 08/21/20 21:06 69 147/61 08/21/20 21:00 Nasal Cannula 2.0 08/21/20 20:08 98 Nasal Cannula 2.0 28 08/21/20 20:00 69 08/21/20 20:00 97.1 68 24 147/61 (89) 93 08/21/20 16:00 53 08/21/20 16:00 97.9 55 18 166/65 (98) 94 08/21/20 12:00 58 08/21/20 12:00 97.9 57 20 126/44 (71) 97 08/21/20 10:53 62 127/47 08/21/20 09:09 54 168/70 08/21/20 09:00 168/70 08/21/20 09:00 Nasal Cannula 2.0 08/21/20 08:28 168/70 08/21/20 08:00 62 08/21/20 08:00 97.7 57 20 168/70 (102) 99 Intake and Output 08/21/20 08/22/20 19:00 07:00 Intake Total 300 ml Output Total 2000 ml Balance -2000 ml 300 ml Intake Oral 300 ml Output Hemodialysis UF 2000 ml # Voids 1 # Bowel Movements 1 Laboratory Tests 08/21/20 09:00: Troponin I 0.184H 08/21/20 17:18: Troponin I 0.189H 08/22/20 01:10: Troponin I 0.190H 08/22/20 04:10: White Blood Count 5.7, Red Blood Count 2.73L, Hemoglobin 7.8L, Hematocrit 25.0L, Mean Corpuscular Volume 92, Mean Corpuscular Hemoglobin 28.6, Mean Corpuscular Hemoglobin Concent 31.1L, Red Cell Distribution Width 14.6, Platelet Count 143L, Mean Platelet Volume 6.1L, Neutrophils (%) (Auto) , Lymphocytes (%) (Auto) , Monocytes (%) (Auto) , Eosinophils (%) (Auto) , Basophils (%) (Auto) , Neutrophils % (Manual) [Pending], Lymphocytes % (Manual) [Pending], Platelet Estimate [Pending], Platelet Morphology [Pending], Sodium Level 137, Potassium Level 4.0, Chloride Level 98, Carbon Dioxide Level 32, Anion Gap 7, Blood Urea Nitrogen 31H, Creatinine 4.8H, Estimat Glomerular Filtration Rate 11.8, Glucose Level 112H, Calcium Level 8.2L, Total Bilirubin 0.2, Aspartate Amino Transf (AST/SGOT) 36, Alanine Aminotransferase (ALT/SGPT) 17, Alkaline Phosphatase 93, Total Protein 5.6L, Albumin 1.7L, Globulin 3.9, Albumin/Globulin Ratio 0.4L Height (Feet): 5 Height (Inches): 10.00 Weight (Pounds): 166 General Appearance: alert EENT: normal ENT inspection Neck: supple Cardiovascular: normal rate Respiratory/Chest: decreased breath sounds Abdomen: normal bowel sounds, non tender, soft Extremities: non-tender Assessment/Plan Status: stable, unchanged Assessment/Plan: Assessment Chronic Nausea, W/u to date: 12/04/16 - EGD - DU x 4 HH x 3 cm path (-) for HP 06/04/19 - abd u/s - small gallbladder sludge 06/05/19 - HIDA Scan-- normal, no CCK given 10/09/19 - abd/pelvis CT - possible PSBO , ventral hernia and tics 10/15/19 - upper GI with SBFT - small HH, non-obstructing Schatzki's ring, mildly distended small bowel loops 12/02/19 - gastric emptying study normal 05/22/20 - HIDA SCAN with CCK mildly abnormal (EF 32%, normal >35%) 07/24/20 - Colonoscopy --> diminutive polyps and diverticulosis ESRD/HD DM h/o anemia h/o syncope CAD/MA PTCA/Stent 04/2015 HTN Hypercholesterolemia AAA GERD Gout h/o PUD/DU h/o a fib miralax and lactulose fu stool ob cbc in am>>>stable ppi daily EGD if stool ob positive consider adding Marinol patient on Plavix Daniel Irving MD Aug 22, 2020 06:26
--- NOTE | 2020-08-22 06:30 | Hematology/Onc Progress Note ---
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, long standing, is on HD --> ferritin and occult blood ordered --> consider use of iron as needed based on above --> continue on EPOGEN --> renal eval as well --> no e/o hemolysis -> recent low GI bleeding , status post colonoscopy at [facility], per gi recs --> hgb 7.6-->7.8 # Thrombocytopenia r/o liver involvement --> plt 160--?143 -> smear reviewed # Generalized weakness due to fatigue/pna --> Possible pneumonia --> abx per pulm CTX # Elevated troponin --> due to esrd, cards eval # Hyperkalemia --> kayxelate prn # Hypertension with initial hypertensive urgency # HL continue Plavix, statin # ESRD on hemodialysis -> HD # Diabetes mellitus # Dvt ppx scds Appreciate consultation and dw Rn Subjective Cardiovascular: Denies: no symptoms, chest pain, edema, irregular heart rate, lightheadedness, palpitations, syncope, other Gastrointestinal/Abdominal: Denies: no symptoms, abdomen distended, abdominal pain, black stools, tarry stools, blood in stool, constipated, diarrhea, difficulty swallowing, nausea, poor appetite, poor fluid intake, rectal bleeding, vomiting, other Genitourinary: Denies: no symptoms, burning, discharge, frequency, flank pain, hematuria, incontinence, pain, urgency, other Neurologic/Psychiatric: Denies: no symptoms, anxiety, depressed, emotional problems, headache, numbness, paresthesia, pre-existing deficit, seizure, tingling, tremors, weakness, other Hematologic/Lymphatic: Denies: no symptoms, anemia, easy bleeding, easy bruising, adenopathy, other Allergies: Coded Allergies: No Known Allergies (Unverified , 06/09/15) Subjective 08/21 labs reviewed, hgb 7.6, occult pend, seen by gi 08/22 neck pain overnight, given tylenol and codein, miralax Objective Objective Current Medications Medications (Trade) Dose Ordered Sig/Harriet Route PRN Reason Start Time Stop Time Status Last Admin Dose Admin Acetaminophen (Tylenol) 650 mg Q6H PRN ORAL For Headache 08/19/20 01:30 09/18/20 01:29 08/19/20 23:08 Acetaminophen/ Codeine Phosphate (Tylenol #3) 1 tab Q4H PRN ORAL Pain Scale (6-10) 08/20/20 00:00 08/27/20 00:00 08/22/20 02:58 Albuterol/ Ipratropium (Albuterol/ Ipratropium) 3 ml Q4H PRN HHN sob 08/19/20 11:15 08/24/20 11:14 Atorvastatin Calcium (Lipitor) 80 mg BEDTIME ORAL 08/19/20 21:00 11/17/20 20:59 08/21/20 21:06 Barium Sulfate (Varibar Honey) 250 ml NOW PRN MC RAD 08/19/20 12:45 08/22/20 12:43 Barium Sulfate (Varibar [place]) 240 ml NOW PRN MC RAD 08/19/20 12:45 08/22/20 12:43 Barium Sulfate (Varibar Pudding) 230 ml NOW PRN MC RAD 08/19/20 12:45 08/22/20 12:43 Barium Sulfate (Varibar Thin Liquid powder) 148 gm NOW PRN MC RAD 08/19/20 12:45 08/22/20 12:43 Carvedilol (Coreg) 25 mg EVERY 12 HOURS ORAL 08/19/20 09:00 09/18/20 08:59 08/21/20 21:06 Ceftriaxone Sodium 1 gm/ Dextrose 55 ml @ 110 mls/hr Q24H IVPB 08/19/20 21:00 08/26/20 20:59 08/21/20 21:07 Clonidine HCl (Catapres Tab) 0.1 mg Q3H PRN ORAL SBP > 170 AND HR >55 08/21/20 10:45 11/19/20 10:44 Clopidogrel Bisulfate (Plavix) 75 mg DAILY ORAL 08/19/20 09:00 09/18/20 08:59 08/21/20 08:30 Docusate Sodium (Colace) 100 mg DAILY ORAL 08/19/20 09:00 09/18/20 08:59 08/21/20 08:29 Enalaprilat (Vasotec) 1.25 mg Q4H PRN IV FOR SBP >170 HR <55 08/21/20 11:15 09/20/20 11:14 Epoetin Bill (Epoetin Bill(ESRD on dialysis)) 10,000 unit FRI-FRI-FRI SUBQ 08/21/20 21:00 11/19/20 20:59 08/21/20 21:06 Lactulose (Cephulac) 20 gm BID ORAL 08/21/20 18:00 09/20/20 17:59 08/21/20 17:06 Levetiracetam (Keppra) 500 mg Q12HR ORAL 08/19/20 09:00 10/03/20 08:59 08/21/20 21:06 Loratadine (Claritin 10mg) 10 mg DAILY ORAL 08/19/20 09:00 09/18/20 08:59 08/21/20 08:30 Montelukast Sodium (Singulair) 10 mg QPM ORAL 08/19/20 16:30 11/17/20 16:29 08/21/20 17:07 Ondansetron HCl (Zofran) 4 mg Q6H PRN IVP Nausea & Vomiting 08/19/20 10:00 09/18/20 09:59 08/21/20 23:58 Pantoprazole (Protonix) 40 mg DAILY ORAL 08/22/20 09:00 09/21/20 08:59 Polyethylene Glycol (Miralax) 17 gm BEDTIME ORAL 08/21/20 21:00 09/20/20 20:59 08/21/20 21:18 Primidone (Mysoline) 50 mg BEDTIME ORAL 08/19/20 21:00 09/18/20 20:59 08/21/20 21:06 Sacubitril/ Valsartan (Entresto 49mg/ 51mg) 1 tab Q12HR ORAL 08/21/20 12:00 11/19/20 11:59 08/21/20 21:46 Sitagliptin Phosphate (Januvia) 25 mg ACBREAKFAST ORAL 08/20/20 06:30 09/19/20 06:29 08/21/20 05:53 Zolpidem Tartrate (Ambien) 5 mg HSPRN PRN ORAL Insomnia 08/20/20 21:00 08/27/20 20:59 08/21/20 23:58 Last 24 Hour Vital Signs Date Time Temp Pulse Resp B/P (MAP) Pulse Ox O2 Delivery O2 Flow Rate FiO2 08/22/20 04:00 99.0 54 24 133/55 (81) 93 08/22/20 04:00 63 08/22/20 03:38 97.1 08/22/20 00:00 97.0 67 24 147/61 (89) 93 08/21/20 21:48 97.1 08/21/20 21:06 69 147/61 08/21/20 21:00 Nasal Cannula 2.0 08/21/20 20:08 98 Nasal Cannula 2.0 28 08/21/20 20:00 69 08/21/20 20:00 97.1 68 24 147/61 (89) 93 08/21/20 16:00 53 08/21/20 16:00 97.9 55 18 166/65 (98) 94 08/21/20 12:00 58 08/21/20 12:00 97.9 57 20 126/44 (71) 97 08/21/20 10:53 62 127/47 08/21/20 09:09 54 168/70 08/21/20 09:00 168/70 08/21/20 09:00 Nasal Cannula 2.0 08/21/20 08:28 168/70 08/21/20 08:00 62 08/21/20 08:00 97.7 57 20 168/70 (102) 99 08/21/20 04:49 170/76 08/21/20 04:00 97.7 68 20 170/65 (100) 98 08/21/20 04:00 64 08/21/20 00:00 62 08/21/20 00:00 98.1 67 18 158/70 (99) 95 08/20/20 21:00 Room Air 08/20/20 20:40 67 153/68 08/20/20 20:00 64 08/20/20 20:00 98.2 68 18 153/68 (96) 95 08/20/20 18:36 63 144/67 08/20/20 16:00 63 08/20/20 16:00 98.6 60 18 144/67 (92) 95 08/20/20 12:58 162/56 08/20/20 12:00 67 08/20/20 12:00 97.5 66 20 162/56 (91) 94 08/20/20 09:00 Room Air 08/20/20 08:51 70 163/61 08/20/20 08:50 70 163/61 08/20/20 08:00 64 08/20/20 08:00 98.2 70 20 163/61 (95) 97 Intake and Output 08/21/20 08/22/20 19:00 07:00 Intake Total 300 ml Output Total 2000 ml Balance -2000 ml 300 ml Intake Oral 300 ml Output Hemodialysis UF 2000 ml # Voids 1 # Bowel Movements 1 Labs Test 08/19/20 09:25 08/19/20 17:00 08/20/20 00:54 08/20/20 04:20 White Blood Count 5.1 K/UL (4.8-10.8) 5.4 K/UL (4.8-10.8) Red Blood Count 2.72 M/UL (4.70-6.10) 2.64 M/UL (4.70-6.10) Hemoglobin 7.8 G/DL (14.2-18.0) 7.5 G/DL (14.2-18.0) Hematocrit 25.6 % (42.0-52.0) 24.7 % (42.0-52.0) Mean Corpuscular Volume 94 FL (80-99) 94 FL (80-99) Mean Corpuscular Hemoglobin 28.6 PG (27.0-31.0) 28.6 PG (27.0-31.0) Mean Corpuscular Hemoglobin Concent 30.4 G/DL (32.0-36.0) 30.5 G/DL (32.0-36.0) Red Cell Distribution Width 15.0 % (11.6-14.8) 14.9 % (11.6-14.8) Platelet Count 171 K/UL (150-450) 154 K/UL (150-450) Mean Platelet Volume 6.4 FL (6.5-10.1) 6.2 FL (6.5-10.1) Neutrophils (%) (Auto) % (45.0-75.0) % (45.0-75.0) Lymphocytes (%) (Auto) % (20.0-45.0) % (20.0-45.0) Monocytes (%) (Auto) % (1.0-10.0) % (1.0-10.0) Eosinophils (%) (Auto) % (0.0-3.0) % (0.0-3.0) Basophils (%) (Auto) % (0.0-2.0) % (0.0-2.0) Differential Total Cells Counted 100 100 Neutrophils % (Manual) 46 % (45-75) 49 % (45-75) Lymphocytes % (Manual) 37 % (20-45) 34 % (20-45) Monocytes % (Manual) 12 % (1-10) 9 % (1-10) Eosinophils % (Manual) 4 % (0-3) 7 % (0-3) Basophils % (Manual) 1 % (0-2) 1 % (0-2) Band Neutrophils 0 % (0-8) 0 % (0-8) Platelet Estimate Adequate Adequate Platelet Morphology Normal Normal Polychromasia 1+ Hypochromasia 1+ 1+ Anisocytosis 1+ 1+ Sodium Level 135 MMOL/L (136-145) 137 MMOL/L (136-145) Potassium Level 5.0 MMOL/L (3.5-5.1) 4.5 MMOL/L (3.5-5.1) Chloride Level 101 MMOL/L (98-107) 100 MMOL/L (98-107) Carbon Dioxide Level 27 MMOL/L (21-32) 29 MMOL/L (21-32) Anion Gap 7 mmol/L (5-15) 8 mmol/L (5-15) Blood Urea Nitrogen 55 mg/dL (7-18) 38 mg/dL (7-18) Creatinine 6.8 MG/DL (0.55-1.30) 5.2 MG/DL (0.55-1.30) Estimat Glomerular Filtration Rate 7.9 mL/min (>60) 10.8 mL/min (>60) Glucose Level 116 MG/DL (74-106) 165 MG/DL (74-106) Calcium Level 8.0 MG/DL (8.5-10.1) 8.0 MG/DL (8.5-10.1) Calcium (Send out) 7.9 mg/dL (8.6-10.2) Phosphorus Level 4.1 MG/DL (2.5-4.9) Iron Level 46 ug/dL (50-175) Total Iron Binding Capacity 127 ug/dL (250-450) Percent Iron Saturation 36 % (15-50) Unsaturated Iron Binding 81 ug/dL (112-346) Troponin I 0.164 ng/mL (0.000-0.056) 0.156 ng/mL (0.000-0.056) 0.168 ng/mL (0.000-0.056) PTH (Intact) Whole Molecule Comment (.) Parathyroid Hormone (Intact) 140 pg/mL (15-65) Test 08/20/20 09:15 08/20/20 17:15 08/21/20 01:06 08/21/20 04:20 Ferritin 1082 NG/ML (8-388) Troponin I 0.181 ng/mL (0.000-0.056) 0.190 ng/mL (0.000-0.056) 0.188 ng/mL (0.000-0.056) White Blood Count 4.8 K/UL (4.8-10.8) Red Blood Count 2.71 M/UL (4.70-6.10) Hemoglobin 7.8 G/DL (14.2-18.0) Hematocrit 25.4 % (42.0-52.0) Mean Corpuscular Volume 94 FL (80-99) Mean Corpuscular Hemoglobin 28.7 PG (27.0-31.0) Mean Corpuscular Hemoglobin Concent 30.7 G/DL (32.0-36.0) Red Cell Distribution Width 14.8 % (11.6-14.8) Platelet Count 153 K/UL (150-450) Mean Platelet Volume 6.5 FL (6.5-10.1) Neutrophils (%) (Auto) % (45.0-75.0) Lymphocytes (%) (Auto) % (20.0-45.0) Monocytes (%) (Auto) % (1.0-10.0) Eosinophils (%) (Auto) % (0.0-3.0) Basophils (%) (Auto) % (0.0-2.0) Sodium Level 139 MMOL/L (136-145) Potassium Level 5.0 MMOL/L (3.5-5.1) Chloride Level 101 MMOL/L (98-107) Carbon Dioxide Level 28 MMOL/L (21-32) Anion Gap 10 mmol/L (5-15) Blood Urea Nitrogen 51 mg/dL (7-18) Creatinine 6.6 MG/DL (0.55-1.30) Estimat Glomerular Filtration Rate 8.2 mL/min (>60) Glucose Level 84 MG/DL (74-106) Calcium Level 7.9 MG/DL (8.5-10.1) Test 08/21/20 09:00 08/21/20 17:18 08/22/20 01:10 08/22/20 04:10 Troponin I 0.184 ng/mL (0.000-0.056) 0.189 ng/mL (0.000-0.056) 0.190 ng/mL (0.000-0.056) White Blood Count 5.7 K/UL (4.8-10.8) Red Blood Count 2.73 M/UL (4.70-6.10) Hemoglobin 7.8 G/DL (14.2-18.0) Hematocrit 25.0 % (42.0-52.0) Mean Corpuscular Volume 92 FL (80-99) Mean Corpuscular Hemoglobin 28.6 PG (27.0-31.0) Mean Corpuscular Hemoglobin Concent 31.1 G/DL (32.0-36.0) Red Cell Distribution Width 14.6 % (11.6-14.8) Platelet Count 143 K/UL (150-450) Mean Platelet Volume 6.1 FL (6.5-10.1) Neutrophils (%) (Auto) % (45.0-75.0) Lymphocytes (%) (Auto) % (20.0-45.0) Monocytes (%) (Auto) % (1.0-10.0) Eosinophils (%) (Auto) % (0.0-3.0) Basophils (%) (Auto) % (0.0-2.0) Sodium Level 137 MMOL/L (136-145) Potassium Level 4.0 MMOL/L (3.5-5.1) Chloride Level 98 MMOL/L (98-107) Carbon Dioxide Level 32 MMOL/L (21-32) Anion Gap 7 mmol/L (5-15) Blood Urea Nitrogen 31 mg/dL (7-18) Creatinine 4.8 MG/DL (0.55-1.30) Estimat Glomerular Filtration Rate 11.8 mL/min (>60) Glucose Level 112 MG/DL (74-106) Calcium Level 8.2 MG/DL (8.5-10.1) Total Bilirubin 0.2 MG/DL (0.2-1.0) Aspartate Amino Transf (AST/SGOT) 36 U/L (15-37) Alanine Aminotransferase (ALT/SGPT) 17 U/L (12-78) Alkaline Phosphatase 93 U/L (46-116) Total Protein 5.6 G/DL (6.4-8.2) Albumin 1.7 G/DL (3.4-5.0) Globulin 3.9 g/dL Albumin/Globulin Ratio 0.4 (1.0-2.7) Height (Feet): 5 Height (Inches): 10.00 Weight (Pounds): 166 Objective Physical Exam General Appearance: no apparent distress, other - bedridden Lines, tubes and drains: peripheral HEENT: normocephalic, atraumatic, anicteric, mucous membranes moist Neck: non-tender, supple Respiratory/Chest: lungs clear - with decreased BS , no accessory muscle use Cardiovascular/Chest: normal rate, regular rhythm - SR on tele Abdomen: normal bowel sounds, non tender, soft Extremities: normal capillary refill, + LUE AV shunt + bruit/thrill Skin Exam: warm/dry Neurologic: abnormal gait, alert, responsive Musculoskeletal: atrophy - BLE Nimesh New MD Aug 22, 2020 06:30
[2020-08-22] MEDS: sitaGLIPtin 25mg tab ORAL SCH (06:53)
[2020-08-22] MEDS: Docusate 100mg cap ORAL SCH (08:53)
[2020-08-22] MEDS: Lactulose 20gm/30ml UDC ORAL SCH ×2 (08:53→17:50)
[2020-08-22] MEDS: Carvedilol 25mg Tab ORAL SCH ×2 (08:54→22:18)
--- NOTE | 2020-08-22 09:07 | Nephrology Progress Note ---
Assessment/Plan Assessment 1. End-stage renal disease. 2. Anemia of chronic kidney disease. 3. Renal osteodystrophy. 4. Hypertension. Plan dialysis as schedule continue epogen nutritional support monitoring phos and PTH start venofer Subjective Subjective c/o fatigue has poor apatite had dialysis yesterday Objective Objective Last 24 Hour Vital Signs Date Time Temp Pulse Resp B/P (MAP) Pulse Ox O2 Delivery O2 Flow Rate FiO2 08/22/20 08:54 68 177/72 08/22/20 04:00 99.0 54 24 133/55 (81) 93 08/22/20 04:00 63 08/22/20 03:38 97.1 08/22/20 00:00 97.0 67 24 147/61 (89) 93 08/21/20 21:48 97.1 08/21/20 21:06 69 147/61 08/21/20 21:00 Nasal Cannula 2.0 08/21/20 20:08 98 Nasal Cannula 2.0 28 08/21/20 20:00 69 08/21/20 20:00 97.1 68 24 147/61 (89) 93 08/21/20 16:00 53 08/21/20 16:00 97.9 55 18 166/65 (98) 94 08/21/20 12:00 58 08/21/20 12:00 97.9 57 20 126/44 (71) 97 08/21/20 10:53 62 127/47 08/21/20 09:09 54 168/70 Intake and Output 08/21/20 08/22/20 19:00 07:00 Intake Total 300 ml Output Total 2000 ml Balance -2000 ml 300 ml Intake Oral 300 ml Output Hemodialysis UF 2000 ml # Voids 1 # Bowel Movements 1 Laboratory Tests 08/21/20 17:18: Troponin I 0.189H 08/22/20 01:10: Troponin I 0.190H 08/22/20 04:10: White Blood Count 5.7, Red Blood Count 2.73L, Hemoglobin 7.8L, Hematocrit 25.0L, Mean Corpuscular Volume 92, Mean Corpuscular Hemoglobin 28.6, Mean Corpuscular Hemoglobin Concent 31.1L, Red Cell Distribution Width 14.6, Platelet Count 143L, Mean Platelet Volume 6.1L, Neutrophils (%) (Auto) , Lymphocytes (%) (Auto) , Monocytes (%) (Auto) , Eosinophils (%) (Auto) , Basophils (%) (Auto) , Differential Total Cells Counted 100, Neutrophils % (Manual) 58, Lymphocytes % (Manual) 25, Monocytes % (Manual) 14H, Eosinophils % (Manual) 3, Basophils % (Manual) 0, Band Neutrophils 0, Platelet Estimate DecreasedL, Platelet Morphology Normal, Hypochromasia 1+, Anisocytosis 1+, Sodium Level 137, Potassium Level 4.0, Chloride Level 98, Carbon Dioxide Level 32, Anion Gap 7, Blood Urea Nitrogen 31H, Creatinine 4.8H, Estimat Glomerular Filtration Rate 11.8, Glucose Level 112H, Calcium Level 8.2L, Total Bilirubin 0.2, Aspartate Amino Transf (AST/SGOT) 36, Alanine Aminotransferase (ALT/SGPT) 17, Alkaline Phosphatase 93, Total Protein 5.6L, Albumin 1.7L, Globulin 3.9, Albumin/Globulin Ratio 0.4L Height (Feet): 5 Height (Inches): 10.00 Weight (Pounds): 166 Objective GENERAL APPEARANCE: He is alert and oriented x3. No acute distress. HEENT: Normocephalic, normochromic. Extraocular muscles intact. Throat is clear. NECK: Supple. No lymphadenopathy. LUNGS: Clear to auscultation bilaterally. No wheezing, no rales CARDIOVASCULAR: Regular rate and rhythm. No murmur. No gallop. ABDOMEN: Soft, nontender, nondistended. Positive bowel sounds. No guarding. EXTREMITIES: Trace edema bilaterally. No cyanosis or clubbing. NEUROLOGIC: Alert and oriented x3. Responds to commands. SKIN: No rash. Ary Locke MD Aug 22, 2020 09:07
--- NOTE | 2020-08-22 09:15 | General Progress Note ---
Subjective Date patient seen: Aug 22, 2020 Constitutional: Reports: weakness HEENT: Reports: no symptoms Cardiovascular: Reports: no symptoms Respiratory: Reports: no symptoms Gastrointestinal/Abdominal: Reports: no symptoms Genitourinary: Reports: no symptoms Neurologic/Psychiatric: Reports: no symptoms Endocrine: Reports: no symptoms Hematologic/Lymphatic: Reports: anemia Allergies: Coded Allergies: No Known Allergies (Unverified , 06/09/15) Subjective Patient was seen and examined. He is afebrile. no sob or chest pain. his H/H has been stable. no sign of infection at this time. will stop rocephin and observe. Objective Last 24 Hour Vital Signs Date Time Temp Pulse Resp B/P (MAP) Pulse Ox O2 Delivery O2 Flow Rate FiO2 08/22/20 08:54 68 177/72 08/22/20 04:00 99.0 54 24 133/55 (81) 93 08/22/20 04:00 63 08/22/20 03:38 97.1 08/22/20 00:00 97.0 67 24 147/61 (89) 93 08/21/20 21:48 97.1 08/21/20 21:06 69 147/61 08/21/20 21:00 Nasal Cannula 2.0 08/21/20 20:08 98 Nasal Cannula 2.0 28 08/21/20 20:00 69 08/21/20 20:00 97.1 68 24 147/61 (89) 93 08/21/20 16:00 53 08/21/20 16:00 97.9 55 18 166/65 (98) 94 08/21/20 12:00 58 08/21/20 12:00 97.9 57 20 126/44 (71) 97 08/21/20 10:53 62 127/47 Intake and Output 08/21/20 08/22/20 19:00 07:00 Intake Total 300 ml Output Total 2000 ml Balance -2000 ml 300 ml Intake Oral 300 ml Output Hemodialysis UF 2000 ml # Voids 1 # Bowel Movements 1 Laboratory Tests 08/21/20 17:18: Troponin I 0.189H 08/22/20 01:10: Troponin I 0.190H 08/22/20 04:10: White Blood Count 5.7, Red Blood Count 2.73L, Hemoglobin 7.8L, Hematocrit 25.0L, Mean Corpuscular Volume 92, Mean Corpuscular Hemoglobin 28.6, Mean Corpuscular Hemoglobin Concent 31.1L, Red Cell Distribution Width 14.6, Platelet Count 143L, Mean Platelet Volume 6.1L, Neutrophils (%) (Auto) , Lymphocytes (%) (Auto) , Monocytes (%) (Auto) , Eosinophils (%) (Auto) , Basophils (%) (Auto) , Differential Total Cells Counted 100, Neutrophils % (Manual) 58, Lymphocytes % (Manual) 25, Monocytes % (Manual) 14H, Eosinophils % (Manual) 3, Basophils % (Manual) 0, Band Neutrophils 0, Platelet Estimate DecreasedL, Platelet Mo rphology Normal, Hypochromasia 1+, Anisocytosis 1+, Sodium Level 137, Potassium Level 4.0, Chloride Level 98, Carbon Dioxide Level 32, Anion Gap 7, Blood Urea Nitrogen 31H, Creatinine 4.8H, Estimat Glomerular Filtration Rate 11.8, Glucose Level 112H, Calcium Level 8.2L, Total Bilirubin 0.2, Aspartate Amino Transf (AST/SGOT) 36, Alanine Aminotransferase (ALT/SGPT) 17, Alkaline Phosphatase 93, Total Protein 5.6L, Albumin 1.7L, Globulin 3.9, Albumin/Globulin Ratio 0.4L Height (Feet): 5 Height (Inches): 10.00 Weight (Pounds): 166 General Appearance: no apparent distress, alert EENT: normal ENT inspection Neck: non-tender, supple Cardiovascular: normal rate, regular rhythm Respiratory/Chest: lungs clear, normal breath sounds Abdomen: non tender, soft Extremities: non-tender Edema: trace edema Neurologic: alert, responsive Skin: warm/dry Assessment/Plan Status: stable, unchanged Assessment/Plan: 1. Hyperkalemia - resolved. 2. ESRD on HD - on HD 3x/wk. add Iron. 3. Anemia - most likely 2nd to Anemia of chronic disease due to ESRD - he had colonoscopy at [facility] showed Diverticulosis. 4. H/o Lower GI bleeding s/p Colonoscopy at [facility] due to bleeding diverticulosis. currently stable H/H. 5. HTN - cont coreg 25 mg bid. off norvasc and minoxidil. 6. 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 7. h/o lower GI bleed at [facility] per patient - GI is following. 8. Elevated Troponin - most likely 2nd to ERSD. Cardiology eval. 9. 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 10. Systolic CHF - Restarted on Entresto. cardiology will follow. 11. Generalized weakness - cont PT and OT. Isela Jordan MD Aug 22, 2020 09:15
--- NOTE | 2020-08-22 11:54 | Cardiac Electrophysiology PN ---
Assessment/Plan Assessment/Plan 1. Elevated troponin of 0.181, 0.164, 0.16, 0.16 and 0.18. in a patient with history of CABG at [facility] >20 years ago. Likely due to renal failure. Out side Client Services Specialist is Dr Loco. The patient does not have any chest pain. EKG does not show any acute ischemic changes but has underlying right bundle-branch block. Echocardiogram showed EF 45%. Continue Lipitor 80 mg , Plavix 75 mg daily and Coreg 25 mg b.i.d. 2. Accelerated hypertension, on Coreg 25 mg bid and Enresto 49/51 bid. DCed Amlodipine and Minoxidil 3. Frequent PVCs on 12 lead ECG today. EF 45%. Has old RI. No syncope. Continue Coreg 4. CMP EF 45%. On Coreg, Entresto and HD 5. End-stage renal disease, on hemodialysis. 6. Anemia, likely due to renal failure. 7. History of lower GI bleed, status post colonoscopy at [facility]. Follow up with Dr. Irving. 8. History of seizure disorder. 9. History of CVA. RAMIRO RN and Dr Jordan Subjective Subjective Has occasional PVCs. No CP or SOB. Objective Last 24 Hour Vital Signs Date Time Temp Pulse Resp B/P (MAP) Pulse Ox O2 Delivery O2 Flow Rate FiO2 08/22/20 11:50 98.1 59 20 114/66 (82) 92 08/22/20 11:05 59 114/66 (82) 08/22/20 09:00 Nasal Cannula 2.0 08/22/20 08:54 68 177/72 08/22/20 08:00 70 08/22/20 08:00 97.9 68 18 177/72 (107) 94 08/22/20 04:00 99.0 54 24 133/55 (81) 93 08/22/20 04:00 63 08/22/20 03:38 97.1 08/22/20 00:00 97.0 67 24 147/61 (89) 93 08/21/20 21:48 97.1 08/21/20 21:06 69 147/61 08/21/20 21:00 Nasal Cannula 2.0 08/21/20 20:08 98 Nasal Cannula 2.0 28 08/21/20 20:00 69 08/21/20 20:00 97.1 68 24 147/61 (89) 93 08/21/20 16:00 53 08/21/20 16:00 97.9 55 18 166/65 (98) 94 08/21/20 12:00 58 08/21/20 12:00 97.9 57 20 126/44 (71) 97 Intake and Output 08/21/20 08/22/20 19:00 07:00 Intake Total 300 ml Output Total 2000 ml Balance -2000 ml 300 ml Intake Oral 300 ml Output Hemodialysis UF 2000 ml # Voids 1 # Bowel Movements 1 Laboratory Tests Test 08/21/20 17:18 08/22/20 01:10 08/22/20 04:10 Troponin I 0.189 ng/mL (0.000-0.056) 0.190 ng/mL (0.000-0.056) White Blood Count 5.7 K/UL (4.8-10.8) Red Blood Count 2.73 M/UL (4.70-6.10) L Hemoglobin 7.8 G/DL (14.2-18.0) L Hematocrit 25.0 % (42.0-52.0) L Mean Corpuscular Volume 92 FL (80-99) Mean Corpuscular Hemoglobin 28.6 PG (27.0-31.0) Mean Corpuscular Hemoglobin Concent 31.1 G/DL (32.0-36.0) L Red Cell Distribution Width 14.6 % (11.6-14.8) Platelet Count 143 K/UL (150-450) L Mean Platelet Volume 6.1 FL (6.5-10.1) L Neutrophils (%) (Auto) % (45.0-75.0) Lymphocytes (%) (Auto) % (20.0-45.0) Monocytes (%) (Auto) % (1.0-10.0) Eosinophils (%) (Auto) % (0.0-3.0) Basophils (%) (Auto) % (0.0-2.0) Differential Total Cells Counted 100 Neutrophils % (Manual) 58 % (45-75) Lymphocytes % (Manual) 25 % (20-45) Monocytes % (Manual) 14 % (1-10) H Eosinophils % (Manual) 3 % (0-3) Basophils % (Manual) 0 % (0-2) Band Neutrophils 0 % (0-8) Platelet Estimate Decreased L Platelet Morphology Normal Hypochromasia 1+ Anisocytosis 1+ Sodium Level 137 MMOL/L (136-145) Potassium Level 4.0 MMOL/L (3.5-5.1) Chloride Level 98 MMOL/L (98-107) Carbon Dioxide Level 32 MMOL/L (21-32) Anion Gap 7 mmol/L (5-15) Blood Urea Nitrogen 31 mg/dL (7-18) H Creatinine 4.8 MG/DL (0.55-1.30) H Estimat Glomerular Filtration Rate 11.8 mL/min (>60) Glucose Level 112 MG/DL (74-106) H Calcium Level 8.2 MG/DL (8.5-10.1) L Total Bilirubin 0.2 MG/DL (0.2-1.0) Aspartate Amino Transf (AST/SGOT) 36 U/L (15-37) Alanine Aminotransferase (ALT/SGPT) 17 U/L (12-78) Alkaline Phosphatase 93 U/L (46-116) Total Protein 5.6 G/DL (6.4-8.2) L Albumin 1.7 G/DL (3.4-5.0) L Globulin 3.9 g/dL Albumin/Globulin Ratio 0.4 (1.0-2.7) L Objective NECK: No JVD. LUNGS: Clear. CARDIOVASCULAR: Regular S1 and S2 with no gallop or murmur. ABDOMEN: Soft. EXTREMITIES: No pitting edema. He has dialysis access in the left upper extremity AV shunt that has a bruit and a thrill. Derek Shah MD Aug 22, 2020 11:54
--- NOTE | 2020-08-22 12:14 | Pulmonology Progress Note ---
Subjective ROS Limited/Unobtainable: Yes Constitutional: Reports: no symptoms HEENT: Repors: no symptoms Respiratory: Reports: no symptoms Allergies: Coded Allergies: No Known Allergies (Unverified , 06/09/15) All Systems: reviewed and negative except above Objective Last 24 Hour Vital Signs Date Time Temp Pulse Resp B/P (MAP) Pulse Ox O2 Delivery O2 Flow Rate FiO2 08/22/20 11:50 98.1 59 20 114/66 (82) 92 08/22/20 11:05 59 114/66 (82) 08/22/20 09:00 Nasal Cannula 2.0 08/22/20 08:54 68 177/72 08/22/20 08:00 70 08/22/20 08:00 97.9 68 18 177/72 (107) 94 08/22/20 04:00 99.0 54 24 133/55 (81) 93 08/22/20 04:00 63 08/22/20 03:38 97.1 08/22/20 00:00 97.0 67 24 147/61 (89) 93 08/21/20 21:48 97.1 08/21/20 21:06 69 147/61 08/21/20 21:00 Nasal Cannula 2.0 08/21/20 20:08 98 Nasal Cannula 2.0 28 08/21/20 20:00 69 08/21/20 20:00 97.1 68 24 147/61 (89) 93 08/21/20 16:00 53 08/21/20 16:00 97.9 55 18 166/65 (98) 94 Intake and Output 08/21/20 08/22/20 19:00 07:00 Intake Total 300 ml Output Total 2000 ml Balance -2000 ml 300 ml Intake Oral 300 ml Output Hemodialysis UF 2000 ml # Voids 1 # Bowel Movements 1 General Appearance: WD/WN HEENT: normocephalic, atraumatic Respiratory: chest wall non-tender, lungs clear, normal breath sounds Cardiovascular: normal rate, regular rhythm, no gallop/murmur Abdomen: normal bowel sounds, soft, non tender, no organomegaly, non distended Extremities: no cyanosis Skin: no rash Neurologic: records management coordinator II-XII grossly normal Laboratory Tests 08/21/20 17:18: Troponin I 0.189H 08/22/20 01:10: Troponin I 0.190H 08/22/20 04:10: White Blood Count 5.7, Red Blood Count 2.73L, Hemoglobin 7.8L, Hematocrit 25.0L, Mean Corpuscular Volume 92, Mean Corpuscular Hemoglobin 28.6, Mean Corpuscular Hemoglobin Concent 31.1L, Red Cell Distribution Width 14.6, Platelet Count 143L, Mean Platelet Volume 6.1L, Neutrophils (%) (Auto) , Lymphocytes (%) (Auto) , Monocytes (%) (Auto) , Eosinophils (%) (Auto) , Basophils (%) (Auto) , Differential Total Cells Counted 100, Neutrophils % (Manual) 58, Lymphocytes % (Manual) 25, Monocytes % (Manual) 14H, Eosinophils % (Manual) 3, Basophils % (Manual) 0, Band Neutrophils 0, Platelet Estimate DecreasedL, Platelet Morphology Normal, Hypochromasia 1+, Anisocytosis 1+, Sodium Level 137, Potassium Level 4.0, Chloride Level 98, Carbon Dioxide Level 32, Anion Gap 7, Blood Urea Nitrogen 31H, Creatinine 4.8H, Estimat Glomerular Filtration Rate 11.8, Glucose Level 112H, Calcium Level 8.2L, Total Bilirubin 0.2, Aspartate Amino Transf (AST/SGOT) 36, Alanine Aminotransferase (ALT/SGPT) 17, Alkaline Phosphatase 93, Total Protein 5.6L, Albumin 1.7L, Globulin 3.9, Albumin/Globulin Ratio 0.4L Current Medications Medications (Trade) Dose Ordered Sig/Harriet Route PRN Reason Start Time Stop Time Status Last Admin Dose Admin Acetaminophen (Tylenol) 650 mg Q6H PRN ORAL For Headache 08/19/20 01:30 09/18/20 01:29 08/19/20 23:08 Acetaminophen/ Codeine Phosphate (Tylenol #3) 1 tab Q4H PRN ORAL Pain Scale (6-10) 08/20/20 00:00 08/27/20 00:00 08/22/20 02:58 Albuterol/ Ipratropium (Albuterol/ Ipratropium) 3 ml Q4H PRN HHN sob 08/19/20 11:15 08/24/20 11:14 Atorvastatin Calcium (Lipitor) 80 mg BEDTIME ORAL 08/19/20 21:00 11/17/20 20:59 08/21/20 21:06 Barium Sulfate (Varibar Honey) 250 ml NOW PRN RAD 08/19/20 12:45 08/22/20 12:43 Barium Sulfate (Varibar [place]) 240 ml NOW PRN RAD 08/19/20 12:45 08/22/20 12:43 Barium Sulfate (Varibar Pudding) 230 ml NOW PRN RAD 08/19/20 12:45 08/22/20 12:43 Barium Sulfate (Varibar Thin Liquid powder) 148 gm NOW PRN RAD 08/19/20 12:45 08/22/20 12:43 Carvedilol (Coreg) 25 mg EVERY 12 HOURS ORAL 08/19/20 09:00 09/18/20 08:59 08/22/20 08:54 Clonidine HCl (Catapres Tab) 0.1 mg Q3H PRN ORAL SBP > 170 AND HR >55 08/21/20 10:45 11/19/20 10:44 Clopidogrel Bisulfate (Plavix) 75 mg DAILY ORAL 08/19/20 09:00 09/18/20 08:59 08/22/20 08:53 Docusate Sodium (Colace) 100 mg DAILY ORAL 08/19/20 09:00 09/18/20 08:59 08/22/20 08:53 Enalaprilat (Vasotec) 1.25 mg Q4H PRN IV FOR SBP >170 HR <55 08/21/20 11:15 09/20/20 11:14 Epoetin Bill (Epoetin Bill(ESRD on dialysis)) 10,000 unit SUBQ 08/21/20 21:00 11/19/20 20:59 08/21/20 21:06 Iron Sucrose 100 mg/Sodium Chloride 60 ml @ 240 mls/hr BEDTIME IVPB 08/22/20 21:00 08/26/20 21:14 Lactulose (Cephulac) 20 gm BID ORAL 08/21/20 18:00 09/20/20 17:59 08/22/20 08:53 Levetiracetam (Keppra) 500 mg Q12HR ORAL 08/19/20 09:00 10/03/20 08:59 08/22/20 08:53 Loratadine (Claritin 10mg) 10 mg DAILY ORAL 08/19/20 09:00 09/18/20 08:59 08/22/20 08:54 Montelukast Sodium (Singulair) 10 mg QPM ORAL 08/19/20 16:30 11/17/20 16:29 08/21/20 17:07 Ondansetron HCl (Zofran) 4 mg Q6H PRN IVP Nausea & Vomiting 08/19/20 10:00 09/18/20 09:59 08/21/20 23:58 Pantoprazole (Protonix) 40 mg DAILY ORAL 08/22/20 09:00 09/21/20 08:59 08/22/20 08:54 Polyethylene Glycol (Miralax) 17 gm BEDTIME ORAL 08/21/20 21:00 09/20/20 20:59 08/21/20 21:18 Primidone (Mysoline) 50 mg BEDTIME ORAL 08/19/20 21:00 09/18/20 20:59 08/21/20 21:06 Sacubitril/ Valsartan (Entresto 49mg/ 51mg) 1 tab Q12HR ORAL 08/21/20 12:00 11/19/20 11:59 08/22/20 08:56 Sitagliptin Phosphate (Januvia) 25 mg ACBREAKFAST ORAL 08/20/20 06:30 09/19/20 06:29 08/22/20 06:53 Zolpidem Tartrate (Ambien) 5 mg HSPRN PRN ORAL Insomnia 08/20/20 21:00 08/27/20 20:59 08/21/20 23:58 Assessment/Plan Problems: (1) Anemia (2) Pulmonary edema (3) Nosocomial pneumonia (4) ESRD (end stage renal disease) (5) CVA (cerebral vascular accident) Assessment/Plan poor appetite VRE rectum Positive Sputum cultures pending BC are negative WBC wnl the findings on CXR could be just fluid and edema prbc prn symptomatic treatment anemia w/u HD by nephrology Robbie Lee MD Aug 22, 2020 12:14
[2020-08-22] MEDS: Montelukast 10mg tablet ORAL SCH (16:33)
[2020-08-22] MEDS: Iron Sucrose 100 MG in NS 55 ML IVPB SCH (22:16)
[2020-08-22] MEDS: Atorvastatin 80mg tab ORAL SCH (22:17)
[2020-08-22] MEDS: Miralax 17gm pkt ORAL SCH (22:17)
[2020-08-23] VITALS: BP 151/59
[2020-08-23 04:00] VITALS: BP 141/73
[2020-08-23] MEDS: sitaGLIPtin 25mg tab ORAL SCH (06:30)
[2020-08-23 07:29] LABS: BASOPHILS % (AUTO) 1.6 % (0.0-2.0); EOSINOPHILS % (AUTO) 4.6 % (0.0-3.0); HEMATOCRIT 26.6 % (42.0-52.0); HEMOGLOBIN 8.3 G/DL (14.2-18.0); LYMPHOCYTES % (AUTO) 35.7 % (20.0-45.0); MEAN CORPUSCULAR VOLUME 92 FL (80-99); MONOCYTES % (AUTO) 13.1 % (1.0-10.0); PLATELET COUNT 151 K/UL (150-450); RED BLOOD COUNT 2.89 M/UL (4.70-6.10); RED CELL DISTRIBUTION WIDTH 14.7 % (11.6-14.8); WHITE BLOOD COUNT 5.6 K/UL (4.8-10.8)
[2020-08-23 08:00] VITALS: BP 160/75
--- NOTE | 2020-08-23 08:41 | General Progress Note ---
Subjective ROS Limited/Unobtainable: Yes Allergies: Coded Allergies: No Known Allergies (Unverified , 06/09/15) Objective Last 24 Hour Vital Signs Date Time Temp Pulse Resp B/P (MAP) Pulse Ox O2 Delivery O2 Flow Rate FiO2 08/23/20 08:00 96.8 77 18 160/75 (103) 98 08/23/20 04:00 97.7 107 24 141/73 (95) 97 08/23/20 04:00 67 08/23/20 00:00 69 08/23/20 00:00 98.0 63 20 151/59 (89) 94 08/22/20 22:18 94 133/72 08/22/20 21:00 Nasal Cannula 2.0 08/22/20 20:00 63 08/22/20 20:00 97.5 75 20 121/66 (84) 94 08/22/20 18:51 97 Nasal Cannula 2.0 28 08/22/20 16:00 68 08/22/20 16:00 97.2 63 18 151/66 (94) 93 08/22/20 12:00 51 08/22/20 11:50 98.1 59 20 114/66 (82) 92 08/22/20 11:05 59 114/66 (82) 08/22/20 09:00 Nasal Cannula 2.0 08/22/20 08:54 68 177/72 Intake and Output 08/22/20 08/23/20 19:00 07:00 Intake Total 540 ml 300 ml Output Total 280 ml Balance 260 ml 300 ml Intake Oral 540 ml 300 ml Output Hemodialysis UF 280 ml # Voids 1 # Bowel Movements 3 6 Laboratory Tests 08/22/20 18:00: Stool Occult Blood [Pending] 08/23/20 05:40: Stool Occult Blood [Pending] 08/23/20 06:34: White Blood Count 5.6, Red Blood Count 2.89L, Hemoglobin 8.3L, Hematocrit 26.6L, Mean Corpuscular Volume 92, Mean Corpuscular Hemoglobin 28.6, Mean Corpuscular Hemoglobin Concent 31.1L, Red Cell Distribution Width 14.7, Platelet Count 151, Mean Platelet Volume 6.5, Neutrophils (%) (Auto) 45.0, Lymphocytes (%) (Auto) 35.7, Monocytes (%) (Auto) 13.1H, Eosinophils (%) (Auto) 4.6H, Basophils (%) (Auto) 1.6 Height (Feet): 5 Height (Inches): 10.00 Weight (Pounds): 166 General Appearance: no apparent distress EENT: normal ENT inspection Neck: supple Cardiovascular: normal rate Respiratory/Chest: decreased breath sounds Abdomen: normal bowel sounds, non tender, soft Extremities: non-tender Assessment/Plan Status: stable, unchanged Assessment/Plan: Assessment Chronic Nausea, W/u to date: 12/04/16 - EGD - DU x 4 HH x 3 cm path (-) for HP 06/04/19 - abd u/s - small gallbladder sludge 06/05/19 - HIDA Scan-- normal, no CCK given 10/09/19 - abd/pelvis CT - possible PSBO , ventral hernia and tics 10/15/19 - upper GI with SBFT - small HH, non-obstructing Schatzki's ring, mildly distended small bowel loops 12/02/19 - gastric emptying study normal 05/22/20 - HIDA SCAN with CCK mildly abnormal (EF 32%, normal >35%) 07/24/20 - Colonoscopy --> diminutive polyps and diverticulosis ESRD/HD DM h/o anemia h/o syncope CAD/KY PTCA/Stent 04/2015 HTN Hypercholesterolemia AAA GERD Gout h/o PUD/DU h/o a fib miralax and lactulose fu stool ob cbc in am>>>stable ppi daily EGD if stool ob positive consider adding Marinol patient on Plavix pending discharge Daniel Irving MD Aug 23, 2020 08:41
--- NOTE | 2020-08-23 08:48 | Cardiac Electrophysiology PN ---
Assessment/Plan Assessment/Plan 1. Elevated troponin of 0.181, 0.164, 0.16, 0.16 and 0.18 in a patient with history of CABG at [facility] >20 years ago. Likely due to renal failure. Out side Poll Clerk is Dr Loco. Denies any chest pain. EKG does not show any acute ischemic changes but has underlying RBBB. Echocardiogram showed EF 45%. Continue Lipitor 80 mg , Plavix 75 mg daily and Coreg 25 mg b.i.d. 2. Accelerated hypertension, on Coreg 25 mg bid and Enresto 49/51 bid. 3. Frequent PVCs on 12 lead ECG today. EF 45%. Has old PA. No syncope. Continue Coreg 4. CMP EF 45%. On Coreg, Entresto and HD 5. End-stage renal disease, on hemodialysis. 6. Anemia, likely due to renal failure. 7. History of lower GI bleed, status post colonoscopy at [facility]. Follow up with Dr. Irving. 8. History of seizure disorder. 9. History of CVA. RAMIRO RN and Dr Jordan Subjective Subjective Has PVCs. No CP or SOB.Had Large BM today Objective Last 24 Hour Vital Signs Date Time Temp Pulse Resp B/P (MAP) Pulse Ox O2 Delivery O2 Flow Rate FiO2 08/23/20 08:00 96.8 77 18 160/75 (103) 98 08/23/20 04:00 97.7 107 24 141/73 (95) 97 08/23/20 04:00 67 08/23/20 00:00 69 08/23/20 00:00 98.0 63 20 151/59 (89) 94 08/22/20 22:18 94 133/72 08/22/20 21:00 Nasal Cannula 2.0 08/22/20 20:00 63 08/22/20 20:00 97.5 75 20 121/66 (84) 94 08/22/20 18:51 97 Nasal Cannula 2.0 28 08/22/20 16:00 68 08/22/20 16:00 97.2 63 18 151/66 (94) 93 08/22/20 12:00 51 08/22/20 11:50 98.1 59 20 114/66 (82) 92 08/22/20 11:05 59 114/66 (82) 08/22/20 09:00 Nasal Cannula 2.0 08/22/20 08:54 68 177/72 Intake and Output 08/22/20 08/23/20 19:00 07:00 Intake Total 540 ml 300 ml Output Total 280 ml Balance 260 ml 300 ml Intake Oral 540 ml 300 ml Output Hemodialysis UF 280 ml # Voids 1 # Bowel Movements 3 6 Laboratory Tests Test 08/22/20 18:00 08/23/20 05:40 08/23/20 06:34 Stool Occult Blood Pending Pending White Blood Count 5.6 K/UL (4.8-10.8) Red Blood Count 2.89 M/UL (4.70-6.10) L Hemoglobin 8.3 G/DL (14.2-18.0) L Hematocrit 26.6 % (42.0-52.0) L Mean Corpuscular Volume 92 FL (80-99) Mean Corpuscular Hemoglobin 28.6 PG (27.0-31.0) Mean Corpuscular Hemoglobin Concent 31.1 G/DL (32.0-36.0) L Red Cell Distribution Width 14.7 % (11.6-14.8) Platelet Count 151 K/UL (150-450) Mean Platelet Volume 6.5 FL (6.5-10.1) Neutrophils (%) (Auto) 45.0 % (45.0-75.0) Lymphocytes (%) (Auto) 35.7 % (20.0-45.0) Monocytes (%) (Auto) 13.1 % (1.0-10.0) H Eosinophils (%) (Auto) 4.6 % (0.0-3.0) H Basophils (%) (Auto) 1.6 % (0.0-2.0) Objective NECK: No JVD. LUNGS: Clear. CARDIOVASCULAR: Regular S1 and S2 with no gallop or murmur. ABDOMEN: Soft. EXTREMITIES: No pitting edema. He has dialysis access in the left upper extremity AV shunt that has a bruit and a thrill. Derek Shah MD Aug 23, 2020 08:48
[2020-08-23] MEDS: Docusate 100mg cap ORAL SCH ×2 (09:00→10:06)
[2020-08-23] MEDS: Carvedilol 25mg Tab ORAL SCH ×2 (09:00→20:16)
[2020-08-23] MEDS: Lactulose 20gm/30ml UDC ORAL SCH ×2 (09:00→17:18)
--- NOTE | 2020-08-23 09:08 | General Progress Note ---
Subjective Date patient seen: Aug 23, 2020 Time patient seen: 08:50 Constitutional: Reports: weakness HEENT: Reports: no symptoms Cardiovascular: Reports: no symptoms Respiratory: Reports: no symptoms Gastrointestinal/Abdominal: Reports: no symptoms Genitourinary: Reports: no symptoms Neurologic/Psychiatric: Reports: weakness Endocrine: Reports: no symptoms Hematologic/Lymphatic: Reports: no symptoms Allergies: Coded Allergies: No Known Allergies (Unverified , 06/09/15) Subjective Patient was seen and examined. He is afebrile. no sob or chest pain. his H/H is better. no sign of infection at this time. Objective Last 24 Hour Vital Signs Date Time Temp Pulse Resp B/P (MAP) Pulse Ox O2 Delivery O2 Flow Rate FiO2 08/23/20 08:00 96.8 77 18 160/75 (103) 98 08/23/20 04:00 97.7 107 24 141/73 (95) 97 08/23/20 04:00 67 08/23/20 00:00 69 08/23/20 00:00 98.0 63 20 151/59 (89) 94 08/22/20 22:18 94 133/72 08/22/20 21:00 Nasal Cannula 2.0 08/22/20 20:00 63 08/22/20 20:00 97.5 75 20 121/66 (84) 94 08/22/20 18:51 97 Nasal Cannula 2.0 28 08/22/20 16:00 68 08/22/20 16:00 97.2 63 18 151/66 (94) 93 08/22/20 12:00 51 08/22/20 11:50 98.1 59 20 114/66 (82) 92 08/22/20 11:05 59 114/66 (82) Intake and Output 08/22/20 08/23/20 19:00 07:00 Intake Total 540 ml 300 ml Output Total 280 ml Balance 260 ml 300 ml Intake Oral 540 ml 300 ml Output Hemodialysis UF 280 ml # Voids 1 # Bowel Movements 3 6 Laboratory Tests 08/22/20 18:00: Stool Occult Blood [Pending] 08/23/20 05:40: Stool Occult Blood [Pending] 08/23/20 06:34: White Blood Count 5.6, Red Blood Count 2.89L, Hemoglobin 8.3L, Hematocrit 26.6L, Mean Corpuscular Volume 92, Mean Corpuscular Hemoglobin 28.6, Mean Corpuscular Hemoglobin Concent 31.1L, Red Cell Distribution Width 14.7, Platelet Count 151, Mean Platelet Volume 6.5, Neutrophils (%) (Auto) 45.0, Lymphocytes (%) (Auto) 35.7, Monocytes (%) (Auto) 13.1H, Eosinophils (%) (Auto) 4.6H, Basophils (%) (Auto) 1.6 Height (Feet): 5 Height (Inches): 10.00 Weight (Pounds): 166 General Appearance: no apparent distress, alert Neck: non-tender, supple Cardiovascular: normal rate, regular rhythm Respiratory/Chest: lungs clear Abdomen: non tender, soft Extremities: non-tender Edema: trace edema Neurologic: alert, responsive Skin: warm/dry Assessment/Plan Status: stable, unchanged Assessment/Plan: 1. Systolic CHF - Restarted on Entresto. cardiology will follow. 2. ESRD on HD - on HD 3x/wk. add Iron. 3. Anemia - most likely 2nd to Anemia of chronic disease due to ESRD - he had colonoscopy at [facility] showed Diverticulosis. 4. H/O Lower GI bleeding s/p Colonoscopy at [facility] due to bleeding diverticulosis. Stable H/H. 5. HTN - cont coreg 25 mg bid. off norvasc and minoxidil. 6. 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 7. h/o lower GI bleed at [facility] per patient - GI is following. 8. Elevated Troponin - most likely 2nd to ERSD. Cardiology eval. 9. H/o Ischemic bowel with closed SMA, with high grade stenosis of ERNESTINA and lindsey c arteries. 10. Generalized weakness - cont PT and OT. D/C back to Rehab. Isela Jordan MD Aug 23, 2020 09:08
[2020-08-23] MEDS ORDERED: PLAVIX75 MG ORAL (09:23)
[2020-08-23] MEDS ORDERED: COLACE100 MG ORAL (09:23)
[2020-08-23] MEDS ORDERED: ENTRESTO 24 MG1 EACH ORAL (09:23)
[2020-08-23] MEDS ORDERED: MIRALAX119 GM ORAL (09:23)
[2020-08-23] MEDS ORDERED: LACTULOSE20 GM/301 ORAL (09:23)
[2020-08-23] MEDS ORDERED: LIPITOR80 MG ORAL (09:23)
[2020-08-23] MEDS ORDERED: ACETAMINOPHEN325 M1 ORAL (09:23)
[2020-08-23] MEDS ORDERED: CLONIDINE HCL0.1 MG ORAL (09:23)
[2020-08-23] MEDS ORDERED: COREG25 MG ORAL (09:23)
[2020-08-23] MEDS ORDERED: MYSOLINE50 M1 ORAL (09:23)
--- NOTE | 2020-08-23 09:39 | Pulmonology Progress Note ---
Subjective ROS Limited/Unobtainable: Yes Constitutional: Reports: no symptoms HEENT: Repors: no symptoms Respiratory: Reports: no symptoms Allergies: Coded Allergies: No Known Allergies (Unverified , 06/09/15) All Systems: reviewed and negative except above Objective Last 24 Hour Vital Signs Date Time Temp Pulse Resp B/P (MAP) Pulse Ox O2 Delivery O2 Flow Rate FiO2 08/23/20 08:00 96.8 77 18 160/75 (103) 98 08/23/20 04:00 97.7 107 24 141/73 (95) 97 08/23/20 04:00 67 08/23/20 00:00 69 08/23/20 00:00 98.0 63 20 151/59 (89) 94 08/22/20 22:18 94 133/72 08/22/20 21:00 Nasal Cannula 2.0 08/22/20 20:00 63 08/22/20 20:00 97.5 75 20 121/66 (84) 94 08/22/20 18:51 97 Nasal Cannula 2.0 28 08/22/20 16:00 68 08/22/20 16:00 97.2 63 18 151/66 (94) 93 08/22/20 12:00 51 08/22/20 11:50 98.1 59 20 114/66 (82) 92 08/22/20 11:05 59 114/66 (82) Intake and Output 08/22/20 08/23/20 19:00 07:00 Intake Total 540 ml 300 ml Output Total 280 ml Balance 260 ml 300 ml Intake Oral 540 ml 300 ml Output Hemodialysis UF 280 ml # Voids 1 # Bowel Movements 3 6 General Appearance: WD/WN HEENT: normocephalic, atraumatic Respiratory: chest wall non-tender, lungs clear, normal breath sounds Cardiovascular: normal rate, regular rhythm, no gallop/murmur Abdomen: normal bowel sounds, soft, non tender, no organomegaly, non distended Extremities: no cyanosis Skin: no rash Neurologic: box stamper II-XII grossly normal Laboratory Tests 08/22/20 18:00: Stool Occult Blood [Pending] 08/23/20 05:40: Stool Occult Blood [Pending] 08/23/20 06:34: White Blood Count 5.6, Red Blood Count 2.89L, Hemoglobin 8.3L, Hematocrit 26.6L, Mean Corpuscular Volume 92, Mean Corpuscular Hemoglobin 28.6, Mean Corpuscular Hemoglobin Concent 31.1L, Red Cell Distribution Width 14.7, Platelet Count 151, Mean Platelet Volume 6.5, Neutrophils (%) (Auto) 45.0, Lymphocytes (%) (Auto) 35.7, Monocytes (%) (Auto) 13.1H, Eosinophils (%) (Auto) 4.6H, Basophils (%) (Auto) 1.6 Current Medications Medications (Trade) Dose Ordered Sig/Harriet Route PRN Reason Start Time Stop Time Status Last Admin Dose Admin Acetaminophen (Tylenol) 650 mg Q6H PRN ORAL For Headache 08/19/20 01:30 09/18/20 01:29 08/19/20 23:08 Acetaminophen/ Codeine Phosphate (Tylenol #3) 1 tab Q4H PRN ORAL Pain Scale (6-10) 08/20/20 00:00 08/27/20 00:00 08/22/20 02:58 Albuterol/ Ipratropium (Albuterol/ Ipratropium) 3 ml Q4H PRN HHN sob 08/19/20 11:15 08/24/20 11:14 Atorvastatin Calcium (Lipitor) 80 mg BEDTIME ORAL 08/19/20 21:00 11/17/20 20:59 08/22/20 22:17 Carvedilol (Coreg) 25 mg EVERY 12 HOURS ORAL 08/19/20 09:00 09/18/20 08:59 08/22/20 22:18 Clonidine HCl (Catapres Tab) 0.1 mg Q3H PRN ORAL SBP > 170 AND HR >55 08/21/20 10:45 11/19/20 10:44 Clopidogrel Bisulfate (Plavix) 75 mg DAILY ORAL 08/19/20 09:00 09/18/20 08:59 08/22/20 08:53 Docusate Sodium (Colace) 100 mg DAILY ORAL 08/19/20 09:00 09/18/20 08:59 08/22/20 08:53 Enalaprilat (Vasotec) 1.25 mg Q4H PRN IV FOR SBP >170 HR <55 08/21/20 11:15 09/20/20 11:14 Epoetin Bill (Epoetin Bill(ESRD on dialysis)) 10,000 unit FRI-FRI-FRI SUBQ 08/21/20 21:00 11/19/20 20:59 08/21/20 21:06 Iron Sucrose 100 mg/Sodium Chloride 60 ml @ 240 mls/hr BEDTIME IVPB 08/22/20 21:00 08/26/20 21:14 08/22/20 22:16 Lactulose (Cephulac) 20 gm BID ORAL 08/21/20 18:00 09/20/20 17:59 08/22/20 17:50 Levetiracetam (Keppra) 500 mg Q12HR ORAL 08/19/20 09:00 10/03/20 08:59 08/22/20 22:17 Loratadine (Claritin 10mg) 10 mg DAILY ORAL 08/19/20 09:00 09/18/20 08:59 08/22/20 08:54 Montelukast Sodium (Singulair) 10 mg QPM ORAL 08/19/20 16:30 11/17/20 16:29 08/22/20 16:33 Ondansetron HCl (Zofran) 4 mg Q6H PRN IVP Nausea & Vomiting 08/19/20 10:00 09/18/20 09:59 08/22/20 12:26 Pantoprazole (Protonix) 40 mg DAILY ORAL 08/22/20 09:00 09/21/20 08:59 08/22/20 08:54 Polyethylene Glycol (Miralax) 17 gm BEDTIME ORAL 08/21/20 21:00 09/20/20 20:59 08/22/20 22:17 Primidone (Mysoline) 50 mg BEDTIME ORAL 08/19/20 21:00 09/18/20 20:59 08/22/20 22:17 Sacubitril/ Valsartan (Entresto 49mg/ 51mg) 1 tab Q12HR ORAL 08/21/20 12:00 11/19/20 11:59 08/22/20 22:18 Sitagliptin Phosphate (Januvia) 25 mg ACBREAKFAST ORAL 08/20/20 06:30 09/19/20 06:29 08/23/20 06:30 Zolpidem Tartrate (Ambien) 5 mg HSPRN PRN ORAL Insomnia 08/20/20 21:00 08/27/20 20:59 08/21/20 23:58 Assessment/Plan Problems: (1) Pulmonary edema (2) Anemia (3) Nosocomial pneumonia (4) ESRD (end stage renal disease) (5) CVA (cerebral vascular accident) Assessment/Plan no new events c/o loose BM poor appetite VRE rectum Positive Sputum cultures pending BC are negative WBC wnl the findings on CXR could be just fluid and edema prbc prn symptomatic treatment anemia w/u HD by nephrology Robbie Lee MD Aug 23, 2020 09:39
--- NOTE | 2020-08-23 10:33 | Nephrology Progress Note ---
Assessment/Plan Assessment 1. End-stage renal disease. 2. Anemia of chronic kidney disease. 3. Renal osteodystrophy. 4. Hypertension. Plan dialysis as schedule continue epogen nutritional support monitoring phos and PTH start venofer Subjective Subjective c/o fatigue has poor apatite had dialysis yesterday Objective Objective Last 24 Hour Vital Signs Date Time Temp Pulse Resp B/P (MAP) Pulse Ox O2 Delivery O2 Flow Rate FiO2 08/23/20 08:00 96.8 77 18 160/75 (103) 98 08/23/20 04:00 97.7 107 24 141/73 (95) 97 08/23/20 04:00 67 08/23/20 00:00 69 08/23/20 00:00 98.0 63 20 151/59 (89) 94 08/22/20 22:18 94 133/72 08/22/20 21:00 Nasal Cannula 2.0 08/22/20 20:00 63 08/22/20 20:00 97.5 75 20 121/66 (84) 94 08/22/20 18:51 97 Nasal Cannula 2.0 28 08/22/20 16:00 68 08/22/20 16:00 97.2 63 18 151/66 (94) 93 08/22/20 12:00 51 08/22/20 11:50 98.1 59 20 114/66 (82) 92 08/22/20 11:05 59 114/66 (82) Intake and Output 08/22/20 08/23/20 19:00 07:00 Intake Total 540 ml 300 ml Output Total 280 ml Balance 260 ml 300 ml Intake Oral 540 ml 300 ml Output Hemodialysis UF 280 ml # Voids 1 # Bowel Movements 3 6 Laboratory Tests 08/22/20 18:00: Stool Occult Blood [Pending] 08/23/20 05:40: Stool Occult Blood [Pending] 08/23/20 06:34: White Blood Count 5.6, Red Blood Count 2.89L, Hemoglobin 8.3L, Hematocrit 26.6L, Mean Corpuscular Volume 92, Mean Corpuscular Hemoglobin 28.6, Mean Corpuscular Hemoglobin Concent 31.1L, Red Cell Distribution Width 14.7, Platelet Count 151, Mean Platelet Volume 6.5, Neutrophils (%) (Auto) 45.0, Lymphocytes (%) (Auto) 35.7, Monocytes (%) (Auto) 13.1H, Eosinophils (%) (Auto) 4.6H, Basophils (%) (Auto) 1.6 Height (Feet): 5 Height (Inches): 10.00 Weight (Pounds): 166 Objective GENERAL APPEARANCE: He is alert and oriented x3. No acute distress. HEENT: Normocephalic, normochromic. Extraocular muscles intact. Throat is clear. NECK: Supple. No lymphadenopathy. LUNGS: Clear to auscultation bilaterally. No wheezing, no rales CARDIOVASCULAR: Regular rate and rhythm. No murmur. No gallop. ABDOMEN: Soft, nontender, nondistended. Positive bowel sounds. No guarding. EXTREMITIES: Trace edema bilaterally. No cyanosis or clubbing. NEUROLOGIC: Alert and oriented x3. Responds to commands. SKIN: No rash. Ary Locke MD Aug 23, 2020 10:33
[2020-08-23 12:00] VITALS: BP 151/61
[2020-08-23] MEDS ORDERED: VENOFER100 MG/5 M IVPB (15:57)
[2020-08-23] MEDS ORDERED: EPOGEN10000 UNIT SUBQ (15:59)
[2020-08-23 16:00] VITALS: BP 149/71
[2020-08-23] MEDS: Montelukast 10mg tablet ORAL SCH (17:18)
[2020-08-23 20:00] VITALS: BP 167/85
[2020-08-23] MEDS: Atorvastatin 80mg tab ORAL SCH (20:21)
[2020-08-23] MEDS: Miralax 17gm pkt ORAL SCH (20:22)
[2020-08-23] MEDS: Epoetin Alfa-EPBX(ESRD on dialysis)10,000 unit/ml vial SUBQ SCH (20:29)
[2020-08-23] MEDS: Iron Sucrose 100 MG in NS 55 ML IVPB SCH (20:34)
[2020-08-23] MEDS: Zolpidem 5mg tab ORAL PRN (22:24)
[2020-08-24] VITALS: BP 156/59
[2020-08-24 04:00] VITALS: BP 160/78
[2020-08-24] MEDS: sitaGLIPtin 25mg tab ORAL SCH (05:40)
[2020-08-24 08:00] VITALS: BP 141/70
[2020-08-24 08:12] VITALS: BP 141/70
[2020-08-24] MEDS: Docusate 100mg cap ORAL SCH (08:12)
[2020-08-24] MEDS: Lactulose 20gm/30ml UDC ORAL SCH (08:12)
[2020-08-24] MEDS: Carvedilol 25mg Tab ORAL SCH (08:12)
--- NOTE | 2020-08-24 21:14 | Discharge Summary ---
DATE OF ADMISSION: 08/18/2020 DATE OF DISCHARGE: 08/24/2020 HOSPITAL COURSE: This is a 79-year-old male with history of hypertension, end-stage renal disease, insomnia, hyperlipidemia, gout, intentional tremor, seizure disorder, and anemia who was brought in from senior care for complaint of weakness and for evaluation of anemia. Patient had lower GI bleed prior to admission due to diverticulosis and was previously seen at [facility]. He had a full workup with GI that showed that the bleeding actually was stopped without any intervention. While admitted in the hospital at [place], patient's hemoglobin was monitored and improved with IV iron and Epogen during hemodialysis. Patient's weakness also improved and patient's GI decided not to do any upper or lower endoscopy because the patient had recent endoscopy done at another facility. 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 Patient's heart failure was controlled and compensated while in the hospital. He also had hyperkalemia on admission, but was corrected with Kayexalate in the emergency room and his blood pressure medication was changed until blood pressure improved as inpatient. He also had elevated troponin, which was due to end-stage renal disease after Cardiology evaluation as well. DISCHARGE MEDICATIONS: Include acetaminophen 325 one q.6h. p.r.n., Lipitor 80 mg at bedtime, Coreg 25 mg q.12h., clonidine 0.1 mg q.3h. p.r.n., Plavix 75 mg daily, Colace 100 mg daily, lactulose 20 mg b.i.d. p.r.n., MiraLAX 17 g daily at bedtime, primidone 25 mg at bedtime for 14 days then discontinue, Entresto 24/26 mg tablet 1 q.12h., Epogen 10,000 units 3 times a week, Venofer 100 mg per 5 mL IV daily for 3 days, levetiracetam 500 mg b.i.d., loratadine 10 mg daily, Singulair 10 mg daily, Zofran 4 mg q.6h. p.r.n., pantoprazole 20 mg daily, Januvia 25 mg daily, and B complex 1 tab daily. DISCHARGE DIAGNOSES: 1. End-stage renal disease on hemodialysis. 2. Anemia due to chronic kidney disease. 3. History of lower GI bleed. 4. Hypertension. 5. History of seizure disorder. 6. History of elevated troponin. 7. History of ischemic bowel disease. 8. Systolic congestive heart failure. 9. Generalized weakness. DISPOSITION: Patient will be discharged to [facility] and that we will be following the patient within couple of days at the rehabilitation. Isela Jordan M.D. DR: DONNA JOB#: [id number] CC: [email or web address]
== END 2020-08-24 09:02 | DRG 682 ==
LOC: EDBD 19:48 → EMR 20:08 → 2E 20:38 → EDBEDREQ 22:12 → 2E 08-19 05:51
PROC: 5A1D70Z Performance of Urinary Filtration, Intermittent, Less than 6 Hours Per Day (ICD-10-PCS; principal; 2020-08-21)
DX: I12.0 Hypertensive chronic kidney disease with stage 5 chronic kidney disease or end stage renal disease (principal); J18.9 Pneumonia, unspecified organism; N18.6 End stage renal disease; E46 Unspecified protein-calorie malnutrition; I50.20 Unspecified systolic (congestive) heart failure; E87.5 Hyperkalemia; E11.22 Type 2 diabetes mellitus with diabetic chronic kidney disease; Z99.2 Dependence on renal dialysis; I16.0 Hypertensive urgency; M10.9 Gout, unspecified; E78.5 Hyperlipidemia, unspecified; Z79.02 Long term (current) use of antithrombotics/antiplatelets; D63.1 Anemia in chronic kidney disease; I13.2 Hypertensive heart and chronic kidney disease with heart failure and with stage 5 chronic kidney disease, or end stage renal disease; Z91.81 History of falling; Y95 Nosocomial condition; Z79.82 Long term (current) use of aspirin; Z79.4 Long term (current) use of insulin; I25.10 Atherosclerotic heart disease of native coronary artery without angina pectoris; Z95.5 Presence of coronary angioplasty implant and graft; K21.9 Gastro-esophageal reflux disease without esophagitis; G40.909 Epilepsy, unspecified, not intractable, without status epilepticus; I25.2 Old myocardial infarction; Z95.1 Presence of aortocoronary bypass graft; I49.3 Ventricular premature depolarization; D69.6 Thrombocytopenia, unspecified
CPT/HCPCS: 36415; 71045; 80048; 80053; 82270; 82728; 83540; 83550; 83605; 83970; 84100; 84484; 85007; 85025; 85610; 85730; 86706; 86850; 86900; 86901; 86920; 87040; 87081; 87324; 93005; 93306; 96365; 99285; J2405; U0002